=== PATIENT | male | born 1950 | race Caucasian/White ===

== ENCOUNTER → 2019-10-14 09:28 | Outpatient (CLI) | payer MEDICARE, BC, SELFPAY ==
[2019-10-14 11:04] LABS: Coronavirus 19 IgG Antibody Negative (Negative); Coronavirus 19 IgM Antibody Negative (Negative)
== END ==
PROVIDERS: Visit Provider Internal Medicine Gastroenterology
DX: Z01.818 Encounter for other preprocedural examination (principal); Z12.11 Encounter for screening for malignant neoplasm of colon
CPT/HCPCS: 36415; 86328

== ENCOUNTER 2019-10-17 11:05 | Day surgery (SDC) | payer MEDICARE, BC, SELFPAY ==
--- NOTE | 2019-10-13 10:44 | SUR.PREOP ---
10/13/2019 @ 9172--PHONE CALL MADE TO PATIENT. PATIENT UNDERSTANDS THAT LAB WORK AND COVID TESTING NEEDS TO BE COMPLETED @ 0845 ON 10/14/2019. PATIENT UNDERSTANDS IF LAB WORK AND COVID-19 TESTS ARE NOT COMPLETED BY 12PM ON THAT DATE, THE SURGERY SCHEDULED WILL BE CANCELLED AND RESCHEDULED FOR ANOTHER TIME.
[2019-10-14 14:43] VITALS: BMI 23.7
[2019-10-17] VITALS (7 sets, daily range): BP systolic 79–161; BP diastolic 48–82; PULSE 60–73; RESP 16–18; TEMP 36.3–36.9; O2SAT 96–100
--- NOTE | 2019-10-17 12:11 | HMH.ANESCL ---
[facility] [place] Anesthesia Checklist - Patient Identification Patient Identification: Arm Band, Verbal (Name & ) - Structural Data Admitted From: Home Planned Operative Procedure/s: Colonoscopy Consent for Planned Operative Procedure(s) Verified: Yes Verified Documents: Surgical Consent, History and Physical - NPO Status Verified Time NPO: 00:00 - Chart Verification Results Verified: None - Additional verifications Anesthesia Reactions: No - Airway Assessment C-Spine Mobility Assessed: Yes TMJ Mobility Assessed: Yes Dentition: Good Dentition - Neurological Assessment Level of Consciousness: Awake, Alert, Appropriate, Follows Commands Hx Seizures: No Numbness or tingling in extremities: No - Anesthesia Plan Anesthesia Risk discussed: Yes Anesthesia Plan: Verified ASA Class: III Anesthesia Type: MAC [facility] [place] History I have reviewed the patient's past medical history: Yes Medical History: Reports:: Atrial Fibrillation, Congestive Heart Failure, Hypertension, Internal Pacemaker, Valvular Heart Disease Denies:: Cancer, Diabetes Mellitus Type 1, Diabetes Mellitus Type 2, MRSA, Seizures *Have you ever received a pneumonia vaccine?: Yes *Have you received a flu vaccine this season?: Yes Anesthesia experience/problems:: None Laterality Cases: Bilateral: Tonsillectomy Other Surgeries: Yes: Cardiac Catheterization, Pacemaker, Other (CORDELIA) Amputation: No Fractures: No - *Social History Educational Level: Attended College Smoking Status: Never smoker Alcohol Intake: former Alcohol Intake Frequency:: other Substance Use Type: denies use *Occupational Status:: retired Housing: house Household Members: spouse *Travel in the last 8 weeks: None Family Hx:: No significant family history
--- NOTE | 2019-10-17 12:35 | HMH.PROC ---
[facility] Procedure Note Procedure Note:: Colonoscopy Procedure Report: Colonoscopy with cold snare polypectomy Endoscopist: Bang Raman II, MD Referring physician: LANCE Perez Date of Procedure: October 17, 2019 Equipment: Olympus 180 variable stiffness pediatric colonoscope Sedation: MAC sedation Indication: Mr. Ferguson is a 68-year-old gentleman who is here for diagnostic colonoscopy secondary to a positive Cologuard test. The patient does state that his mother had colon cancer in her early 80s. The patient reports no rectal bleeding, hematochezia or melena. He reports no abdominal pain, weight loss or change in his bowel habits. This is his first colonoscopy. Procedure: Prior to the procedure, a history and physical exam was performed, and patient's medications and allergies were reviewed. The risks, benefits and alternatives of the sedation and procedure were discussed with the patient. All questions were answered and informed consent was obtained. The patient was brought to the procedure room. Patient identification and proposed procedure were verified by the physician and the nurse. The patient was placed in a left lateral decubitus position and the scope was passed under direct vision. Throughout the procedure, the patient's blood pressure, pulse, and oxygen saturations were monitored continuously. The colonoscopy was accomplished without difficulty. The patient tolerated the procedure well. Findings: On digital rectal examination there was normal rectal tone. There were no external hemorrhoids. The colonoscope was introduced through the anal canal to the rectum and advanced to the cecum. The ileocecal valve and appendiceal orifice were identified. The scope was advanced a short distance into the ileum which appeared grossly normal. The scope was then withdrawn into the colon. There was melanosis coli noted throughout the colon but more predominant in the right colon. There were a total of 8 polyps (cecum x3 (4, 4 and 8 mm), ascending x3 (5, 8 and 20 mm), transverse x1 (5 mm) and sigmoid x1 (9 mm)). All of these polyps were removed via cold snare polypectomy. There were extensive scattered wide-mouth diverticuli throughout the descending and sigmoid colon (LEFT colon). The rectum itself was normal. Upon retroflexion within the rectum there were grade 1-2 internal hemorrhoids. The preparation was fair throughout with [place] Preparation Score of 7 out of 9. The cecal time was 19 minutes. Impression: 1. Colonic polyps x8 (ranging in size from 4 to 20 mm) 2. Mild melanosis coli 3. Extensive left-sided diverticulosis 4. Grade 1-2 internal hemorrhoids Plan: I will follow up the polyp pathology and recommend repeat colonoscopy again in 2 years based upon the polyp histology. I would encourage fiber supplementation on a long-term daily maintenance basis.
== END 2019-10-17 13:21 | disposition home or self-care (01) ==
LOC: OUTP 11:07
PROVIDERS: PCP Nurse Practitioner Family; Visit Provider Internal Medicine Gastroenterology
PROC: 0DJD8ZZ Inspection of Lower Intestinal Tract, Via Natural or Artificial Opening Endoscopic (ICD-10-PCS; CPT 45378; principal; 2019-10-17 12:00)
DX: K63.5 Polyp of colon (principal); K57.30 Diverticulosis of large intestine without perforation or abscess without bleeding; K64.0 First degree hemorrhoids; L81.4 Other melanin hyperpigmentation; Z80.0 Family history of malignant neoplasm of digestive organs; I10 Essential (primary) hypertension; I48.91 Unspecified atrial fibrillation; Z95.0 Presence of cardiac pacemaker; Z86.79 Personal history of other diseases of the circulatory system; Z79.82 Long term (current) use of aspirin; Z79.899 Other long term (current) drug therapy
CPT/HCPCS: 45385; 88304; 88305

== ENCOUNTER → 2019-11-25 13:13 | Outpatient (CLI) | payer MEDICARE, BC, SELFPAY ==
--- NOTE | 2019-11-25 13:17 | CA_ITS ---
APPROVED REPORT EXAM: Comprehensive 2D, Doppler, and color-flow Echocardiogram Family Partner: Ailyn Hua CRT Ht: 6 ft 1 in Wt: 186lbs BSA: 2.09 BP: 124/78 mmHg Indications: chf,mv replaced,paf,aicd,htn TDS-BEST WINDOWS POSSIBLE 2D Dimensions LVOT 2.10 cm (M/F) 1.5-2.5 M-Mode Dimensions RVDd 2.57 cm (0.9-2.6) LVDd 3.99 cm (3.5-5.7) LVDs 2.63 cm (3.5-5.7) IVSd 0.82 cm (0.6-1.1) PWd 0.79 cm (0.6-1.1) EF (Teich) 63.60% FS 34.10% EDV (Teich) 69.60 mL ESV (Teich) 25.30 mL LV Diastology E/A Ratio 1.37 Aortic Valve AO VTI 63.11 (18-25 cm) Mitral Valve MV A Velocity 102.00 (40-130 cm/s) MV PHT 87.00 ms Left Ventricle Left atrium is mildly enlarged, left ventricle is normal size, mild concentric left ventricular hypertrophy, visually estimated ejection fraction 55% with no regional wall motion abnormality. Diastolic parameters are inconclusive. Right Ventricle Right atrium and right ventricle are normal size and contractility, there is an AICD lead seen in the right ventricle. Aortic Valve Aortic valve is minimally thickened and fibrosed, there is no aortic stenosis or aortic insufficiency. Mitral Valve There is a bioprosthetic valve noted in the mitral position, the valve is well-seated, the mean gradient across valve is 4 mmHg, valve area is 2.5 cm??? by pressure half-time which does not represent any significant mitral inflow obstruction. There is no mitral regurgitation. Tricuspid Valve Tricuspid valve is not well visualized, there is no significant tricuspid regurgitation seen. Pulmonic Valve Pulmonic valve is poorly visualized. Great Vessels Aortic root is normal size. Pericardium No significant pericardial effusion noted. Conclusion 1. Mildly enlarged left atrium, normal left ventricular size, mild concentric left ventricular hypertrophy, visually estimated ejection fraction 55% with no regional wall motion abnormality, diastolic parameters are inconclusive. 2. Normal functioning bioprosthetic valve in the mitral position without significant mitral inflow obstruction or mitral regurgitation. 3. No significant pericardial effusion noted. Electronically signed by : Toni Wright, 11/28/2019 07:10:02
== END ==
PROVIDERS: PCP Nurse Practitioner Family; Visit Provider Nurse Practitioner Family
DX: I50.32 Chronic diastolic (congestive) heart failure (principal)
CPT/HCPCS: 93306

== ENCOUNTER → 2021-12-23 10:18 | Outpatient (CLI) | payer MEDICARE, SELFPAY ==
[2021-12-23 11:24] LABS: Basophils # 0.1 K/mm3 (0-0.2); Basophils % 1.3 % (0.1-2.0); Eosinophils # 0.5 K/mm3 (0.0-0.4); Hematocrit 40.9 % (42.0-52.0); Hemoglobin 12.9 g/dL (14.1-18.0); Lymphocytes # 1.7 K/mm3 (0.7-4.5); Lymphocytes % 22.6 % (10-50); Mean Corpuscular HGB Conc 31.6 g/dL (31.8-35.4); Mean Corpuscular Hemoglobin 28.9 pg (27.0-31.2); Mean Corpuscular Volume 91.7 fl (80-94); Mean Platelet Volume 8.9 fl (7.4-10.4); Monocytes # 0.4 K/mm3 (0.1-1.0); Monocytes % 5.3 % (1.7-9.3); Neutrophils # 4.8 K/mm3 (1.8-7.8); Neutrophils % 63.8 % (37.0-80.0); Platelet Count 141 K/mm3 (142-424); Red Blood Count 4.45 M/mm3 (4.60-6.20); Red Cell Distribution Width 15.5 % (11.5-17.5); White Blood Count 7.5 K/mm3 (4.8-10.8)
[2021-12-23 11:46] LABS: Alanine Aminotransferase 17 U/L (12-78); Albumin Level 3.9 g/dl (3.5-5.0); Alkaline Phosphatase 82 U/L (38-126); Anion Gap 9.5 mEq/L (5-15); Aspartate Amino Transferase 16 U/L (17-59); Bilirubin,Indirect 0.2 mg/dL (0.0-0.9); Bilirubin,Total 0.2 mg/dl (0.2-1.3); Bilirubin,Unconjugated 0.2 mg/dL (0.0-1.1); Blood Urea Nitrogen 33 mg/dl (9-20); Calcium 9.3 mg/dl (8.4-10.2); Carbon Dioxide 32 mmol/L (22.0-30.0); Chloride 105 mmol/L (98-107); Estimated Glomerular Filt Rate 60 ml/min (>60); GFR (African American) 73 ML/MIN (>60); Glucose 108 mg/dl (74-100); Magnesium 1.9 mg/dl (1.6-2.3); Potassium 4.5 mmoL/L (3.5-5.1); Sodium 142 mmol/L (136-145); Total Protein,Serum 6.1 g/dl (6.3-8.2)
[2021-12-23 12:02] LABS: Free T4 (Free Thyroxine) 0.87 ng/dl (0.78-2.19)
[2021-12-23 12:16] LABS: Thyroid Stimulating Hormone 3.16 uIU/mL (0.465-4.68)
== END ==
PROVIDERS: PCP Nurse Practitioner Family; Visit Provider Nurse Practitioner Family
DX: I50.9 Heart failure, unspecified; Z95.810 Presence of automatic (implantable) cardiac defibrillator; I48.0 Paroxysmal atrial fibrillation
CPT/HCPCS: 36415; 80048; 80076; 83735; 84439; 84443; 85025

== ENCOUNTER → 2023-02-18 10:40 | Outpatient (CLI) | payer MEDICARE, SELFPAY ==
--- NOTE | 2023-02-18 10:46 | CA_ITS ---
APPROVED REPORT EXAM: Comprehensive 2D, Doppler, and color-flow Echocardiogram Film Replacement Orderer: Luzmaria Villavicencio RT(R) Ht: 6 ft 0 in Wt: 201lbs BSA: 2.14 BP: 129/55 mmHg Indications: mitral valve replacement (bioprosthetic) 6 years ago, CHF, dyspnea, PAF. 2D Dimensions LVOT 2.54 cm (M/F) 1.5-2.5 M-Mode Dimensions RVDd 3.68 cm (0.9-2.6) LA Diam 3.95 cm (1.9-4.0) LVDd 4.81 cm (3.5-5.7) Ao Diam 3.45 cm (2.0-3.7) LVDs 3.68 cm (3.5-5.7) IVSd 1.23 cm (0.6-1.1) PWd 1.03 cm (0.6-1.1) EF (Teich) 46.90% FS 23.50% EDV (Teich) 108.00 mL ESV (Teich) 57.40 mL LV Diastology E Decel Time 207.00 (160-240 msec) E/A Ratio 2.0 MED E' 10.50 (< 7 cm/sec) E'/MED E' Ratio 13.85 (>14) LAT E' 10.40 (<10 cm/sec) E/LAT E' Ratio 13.98 (>14) Aortic Valve LVOT Max 101.00 (70-110 cm/s) LVOT VTI 22.10 cm AoV Peak Jefry. 135.00 (50-130 cm/s) AO Peak GR. 7.30 mmHg AO Mean GR. 3.60 (<5 mmHg) AO VTI 29.96 (18-25 cm) MARTHA (VTI) 3.74 (2.5-4.5 cm2) Mitral Valve MV E Max Jefry. 145.00 (40-130 cm/s) MV A Velocity 72.00 (40-130 cm/s) E/A Ratio 2.02 MV Decel. Time 207.00 (160-240 ms) MV PHT 61.00 ms Left Ventricle The left ventricle is normal size. The left ventricular systolic function is normal. The left ventricular ejection fraction is within the normal range. There is normal left ventricular wall thickness. The septum appears asynchronous. No regional wall motion abnormalities. The left ventricular diastolic function is normal. LVEF is 55% Right Ventricle The right ventricle is normal size. The right ventricular systolic function is normal. A device lead is noted in the right ventricle. Atria The left atrium size is normal. Aortic Valve The aortic valve is mildly thickened. There is no aortic valvular stenosis. Trace aortic regurgitation. Mitral Valve s/p bioprosthetic mitral valve replacement. The prosthesis is well-seated. No evidence of significant mitral stenosis. Mean MV gradient is 4 mmHg. Trace mitral regurgitation. Tricuspid Valve The tricuspid valve leaflets are thin and pliable. Trace tricuspid regurgitation. There is insufficient TR jet to estimate RVSP. Pulmonic Valve The pulmonic valve is not well visualized. Great Vessels The aortic root is normal in size. The ascending aorta is not well visualized. The IVC is not well visualized. Pericardium There is no pericardial effusion. Other Information Study Quality: Technically Difficult Conclusion This was a technically difficult study due to poor acoustic windows. Normal biventricular systolic function. s/p bioprosthetic MVR. Mean MV gradient 4 mmHg. Compared to prior study from 11/25/2019, there are overall no significant changes. The mean transmitral gradient is unchanged. Electronically signed by : Ciara Benavidez MD 02/18/2023 21:42:04
== END ==
PROVIDERS: PCP Nurse Practitioner Family; Visit Provider Nurse Practitioner Family
DX: I10 Essential (primary) hypertension (principal); I48.0 Paroxysmal atrial fibrillation; I50.9 Heart failure, unspecified; Z95.4 Presence of other heart-valve replacement; Z95.810 Presence of automatic (implantable) cardiac defibrillator
CPT/HCPCS: 93306

== ENCOUNTER 2023-07-16 14:19 | Inpatient (IN) | payer MEDICARE, SELFPAY ==
[2023-07-16] VITALS (26 sets, daily range): BP systolic 90–130; BP diastolic 50–89; PULSE 60–78; RESP 20–52; TEMP 36.9–37.7; O2SAT 89–100; BMI 26.4; BMI 26.5; BMI 28.5
--- NOTE | 2023-07-16 14:28 | XR_ITS ---
FINAL REPORT CLINICAL HISTORY: acute soa COMPARISON: 05/29/2023 FINDINGS: A single PA view of the chest was obtained. There is no prior exam for comparison. The heart is enlarged. The patient is status post median sternotomy. There is no change in the left AICD. Interstitial opacities bilaterally are worse. There are also worsening bibasilar airspace opacities and small bilateral effusions. IMPRESSION: Favor CHF. Reviewed, Interpreted and Dictated by Ginny Vega MD Transcribed by Edith Vargas Authenticated and [facility]
--- NOTE | 2023-07-16 14:37 | PC.NURSE ---
RESPIRATORY NOTIFIED OF BI-PAP ORDER PER DR MARVIN
--- NOTE | 2023-07-16 14:42 | ECG_ITS ---
APPROVED REPORT Exam: Resting ECG HR:66 bpm ECG Measurements Heart Rate 66 AXES DE 328 P -23 QRSd 83 QRS 37 QT 405 T -30 QTc 419 Conclusion ELECTRONIC ATRIAL PACEMAKER LOW QRS VOLTAGE IN PRECORDIAL LEADS [QRS DEFLECTION < 1.0 mV IN CHEST LEADS] ANTERIOR MYOCARDIAL INFARCTION , PROBABLY RECENT [40+ ms Q WAVE AND/OR ST/T ABNORMALITY IN V3/V4] ACUTE LA UNCONFIRMED REPORT Electronically signed by : Jorge Marsh MD 07/17/2023 19:32:40
--- NOTE | 2023-07-16 14:45 | ED_ITS ---
Discharge Plan Disposition Patient Disposition: Admitted Condition: Good Clinical Impressions Clinical Impression: Acute respiratory failure, Lung disease, restrictive, Pectus excavatum, Aspiration pneumonia, CHF exacerbation Discharge ED Provider: Steven Swain HPI <Steven Swain MD - Last Filed: 07/16/23 15:28> General Chief Complaint: Shortness of Breath/Dyspnea Stated Complaint: soa Time Seen by Provider: 07/16/23 14:22 History of Present Illness HPI narrative: Patient is a 72-year-old male with past medical history of aortic stenosis status post TAVR, V-fib status post pacemaker placement, paroxysmal atrial fibri llation, CHF, hypertension who presents emergency department for evaluation of shortness of breath. Onset was acute, worsening over the last week, acutely worsened since this morning. Patient had significant difficulty breathing. Family at bedside state that he is not a smoker, does not have a history of COPD. He has been speaking intermittently nonsensically, after waking up today they found that he was hypoxic to the 70s which improved after he was roused. He is more somnolent than normal. Patient denies chest pain however is only able to speak in 1-3 word sentences. Related Data Home Medications Medication Instructions Recorded Confirmed apixaban 5 mg tablet (Eliquis) 5 mg PO BID Blood thinner 06/15/17 01/29/23 aspirin 81 mg tablet,delayed 81 mg PO QDAY heart 06/15/17 01/29/23 release (Adult Low Dose Aspirin) furosemide 40 mg tablet (Lasix) 40 mg PO QDAY Fluid 06/15/17 01/29/23 lisinopril 10 mg tablet 10 mg PO QDAY bp 06/15/17 01/29/23 loratadine 10 mg tablet (Claritin) 10 mg PO QDAY allergies 06/15/17 01/29/23 melatonin 5 mg tablet 10 mg PO HS sleep 06/16/17 01/29/23 acetaminophen 500 mg tablet 500 mg PO Q6H PRN pain 09/09/18 01/29/23 (Tylenol Extra Strength) calcium carbonate 600 mg-vitamin 1 cap PO DAILY Supplement 09/09/18 01/29/23 D3 5 mcg (200 unit) capsule (Calcium 600 + D(3)) methylcellulose (laxative) 500 mg 500 mg PO DAILY 01/05/20 01/29/23 tablet (Citrucel) polyethylene glycol 3350 17 17 g PO DAILY 01/05/20 01/29/23 gram/dose oral powder (Miralax) allopurinol 100 mg tablet 100 mg PO DAILY 01/10/21 01/29/23 ipratropium bromide 0.02 % 2.5 ml inhalation QID PRN 01/10/21 01/29/23 solution for inhalation ipratropium bromide 21 mcg (0.03 2 spray intranasal BID 08/01/22 01/29/23 %) nasal spray potassium chloride 20 mEq 20 meq PO DAILY 08/01/22 01/29/23 tablet,extended release(part/cryst) Previous Rx's Medication Instructions Recorded metoprolol succinate 100 mg 100 mg PO DAILY #90 tabs 12/20/21 tablet,extended release 24 hr (Toprol XL) Allergies Allergy/AdvReac Type Severity Reaction Status Date / Time No Known Allergies Allergy Verified 01/29/23 09:58 COUNT INCLUDES THE [facility] <Steven Swain MD - Last Filed: 07/16/23 15:28> COUNT INCLUDES THE [facility] Disclaimer: The information contained in this section may have been updated after the patient was seen, as this information can be updated by other users. Medical History Atrial fibrillation Congestive heart failure HTN (hypertension) Presence of combination internal cardiac defibrillator (ICD) and pacemaker Valvular heart disease Surgical History Hx of tonsillectomy Social History Smoking Status: Never smoker second hand exposure: No alcohol intake: former substance use type: denies use current occupational status: retired Travel in the last 8 weeks: Inside the [place] household members: spouse housing: house current occupational exposures/hazards: No caffeine: No <Steven Swain MD - Last Filed: 07/16/23 15:28> ROS Obtained: Yes Systems reviewed as appropriate & no additional complaints except as documented Physical Exam <Steven Swain MD - Last Filed: 07/16/23 15:28> General General appearance: alert and in distress Head Head exam: atraumatic and normocephalic Eye Eye exam: Present PERRL and EOMI ENT ENT exam: Present mucous membranes moist Neck Neck exam: Present normal inspection Chest Chest inspection: Present symmetric chest wall rise and other (Pectus excavatum, well-healed surgical scar midline) Respiratory Respiratory exam: Present respiratory distress, accessory muscle use (Sign ificant accessory muscle use with belly breathing) and other (Significantly decreased air movement) Cardiovascular Cardiovascular exam: Present regular rate and normal rhythm Abdominal Exam Abdominal exam: Present soft; Absent tenderness Extremities Exam Extremities exam: Present normal inspection Neurological Exam Neurological exam: Present alert and oriented X3 Psychiatric Psychiatric exam: Present normal affect Skin Skin exam: Present warm and dry HEART Score <Steven Swain MD - Last Filed: 07/16/23 15:28> HEART Score HEART Score assessment performed?: Yes History (anamnesis): Slightly suspicious ECG: Non-specific disturbance Age: >65 years Risk factors: Atherosclerosis history Troponin: 1-3x normal limit HEART Score: 6 <MISSY Grier - Last Filed: 07/16/23 17:06> HEART Score HEART Score: 6 <Isaura Kee DO - Last Filed: 07/16/23 23:42> HEART Score HEART Score: 6 <MISSY Grier - Last Filed: 07/16/23 17:06> Intubation Time out performed: No sedative: Etomidate Mg Given: 20 paralytic: Succinylcholine Mg Given: 100 Laryngoscope: fiber optic video scope ET Tube Size: 7.5 ET Tube Uncuffed: No Tube Secured Depth (cm): 24 Tube Secured Location: teeth Tube Placement Confirmation: visualized tube passing through cords, equal breath sounds bilaterally and confirmation by capnometry Patient Tolerated Procedure: well and no complications Intubation Complications: none Additional Comments: I performed the intubation of the direct supervision and assistance of of Dr. Kee Critical Care <Steven Swain MD - Last Filed: 07/16/23 15:28> Critical Care Time Critical Care Time: Yes Attestation: On 07/16/23, the high probability of a clinically significant, sudden or life threatening deterioration of the following system(s) required my full and direct attention, intervention and personal management. The time I documented below is in addition to time spent performing reported procedures but includes the following listed in this critical care notation. Total Time Total Critical Care Time: 35 <Isaura Kee DO - Last Filed: 07/16/23 23:42> Total Time Total Critical Care Time: 75 Medical Decision Making <Steven Swain MD - Last Filed: 07/16/23 15:28> Shashank Brizuela Pt receiving controlled substance: No Vital Signs Vital Signs: 07/16/23 14:20 07/16/23 14:59 07/16/23 15:21 Temperature 98.6 F Temperature Source Temporal Artery Scan Pulse Rate 65 61 Pulse Rate [Left Radial] 63 Respiratory Rate 45 H 28 H 22 Blood Pressure 130/67 119/79 Blood Pressure [Right Arm] 130/77 Blood Pressure Mean 85 88 Blood Pressure Mean [Right Arm] 94 Blood Pressure Source Blood Pressure Source [Right Arm] Automatic Cuff Blood Pressure Position Blood Pressure Position [Right Arm] Sitting 02 Sat by Pulse Oximetry 89 L 97 100 Oxygen Delivery Method Room Air BiPAP Mechanical Ventilation 07/16/23 15:10 07/16/23 15:30 07/16/23 20:20 Temperature 99.9 F H Temperature Source Core Pulse Rate 61 62 Pulse Rate [Left Radial] Respiratory Rate 20 24 Blood Pressure 100/67 L 105/64 L Blood Pressure [Right Arm] Blood Pressure Mean 73 Blood Pressure Mean [Right Arm] Blood Pressure Source Automatic Cuff Blood Pressure Source [Right Arm] Blood Pressure Position Supine Blood Pressure Position [Right Arm] 02 Sat by Pulse Oximetry 100 100 Oxygen Delivery Method Mechanical Ventilation Mechanical Ventilation 07/16/23 17:53 Temperature Temperature Source Pulse Rate Pulse Rate [Left Radial] Respiratory Rate 24 Blood Pressure Blood Pressure [Right Arm] Blood Pressure Mean Blood Pressure Mean [Right Arm] Blood Pressure Source Blood Pressure Source [Right Arm] Blood Pressure Position Blood Pressure Position [Right Arm] 02 Sat by Pulse Oximetry 100 Oxygen Delivery Method Lab Data Labs: Lab Results 07/16/23 14:35: WBC 9.7, RBC 4.89, Hgb 15.0, Hct 48.1, MCV 98.3 H, MCH 30.6, MCHC 31.1 L, RDW 15.5, Plt Count 131 L, MPV 9.2, Neut % (Auto) 74.4, Lymph % (Auto) 18.9, [place] % (Auto) 4.9, Eos % (Auto) 1.1, Baso % (Auto) 0.8, Neut # (Auto) 7.2, Lymph # (Auto) 1.8, [place] # (Auto) 0.5, Eos # (Auto) 0.1, Baso # (Auto) 0.1, Sodium 143, Potassium 5.7 H, Chloride 105, Carbon Dioxide 36 H, Anion Gap 7.7, BUN 24 H, Creatinine 1.20, Estimated Creat Clear 68, Estimated GFR 60, Est GFR ( Amer) 72, Glucose 114 H, Lactate 0.9, Calcium 8.5, Total Bilirubin 0.8, AST 30, ALT 19, Alkaline Phosphatase 73, Troponin I 0.04 H, NT-Pro-B Natriuret Pep 2010 H, Total Protein 7.1, Albumin 4.3, Globulin 2.8, Albumin/Globulin Ratio 1.5 07/16/23 14:42: VBG pH 7.24 L, VBG pCO2 73.6 H, VBG pO2 48.0 H, VBG HCO3 30.8 H, VBG Total CO2 33.1 H, VBG O2 Saturation 81.4 H, VBG Base Excess 3.4 H 07/16/23 14:58: VBG Lactic Acid 1.5 07/16/23 16:09: Specimen Source Left radial, O2 % 40, ABG pH 7.35, ABG pCO2 48.0 H, ABG pO2 71.5 L, ABG HCO3 26.1 H, ABG Total CO2 27.6 H, ABG O2 Saturation 94, ABG Base Excess 0.5, [place] Test Patient unable, Vent Rate 24, Tidal Volume 420, PEEP 5 07/16/23 18:04: Troponin I 0.06 H 07/16/23 18:45: SARS-CoV-2 (PCR) Not detected, Influenza A Untype (PCR) Not d etected, Influenza Type B (PCR) Not detected 07/16/23 14:35 07/16/23 14:35 Response Orders (Tests/Meds): ED MEDICATIONS Generic Name Dose Route Start Last Admin Trade Name Freq PRN Reason Stop Dose Admin Albuterol/Ipratropium 3 ml 07/16/23 22:00 07/16/23 21:55 Ipratropium/Albuterol 3 Ml Neb IH 08/15/23 21:59 3 ml Q4RT ANASTACIA Administration Fentanyl Citrate 12.5 mcg 07/16/23 23:06 Fentanyl 100mcg/2ml Vial IV 08/15/23 23:05 [id number] PRN Severe Pain (7-10) Fentanyl Citrate 1,000 mcg/ 100 mls @ 1 mls/hr 07/16/23 15:43 07/16/23 16:32 Sodium Chloride IV 08/15/23 15:42 80 mcg/hr .Q24H ANASTACIA 8 mls/hr Titration Protocol 10 MCG/HR Propofol 100 mls @ 2.517 mls/hr 07/16/23 15:10 07/16/23 16:54 Diprivan 10mg/Ml 100ml Bottle IV 08/15/23 15:09 12 mcg/kg/min .Q24H ANASTACIA 6.04 mls/hr Titration Protocol 5 MCG/KG/MIN Norepinephrine/Dextrose 8 mg in 250 mls @ 3.75 mls/hr 07/16/23 16:57 07/16/23 19:40 Norepinephrine 8mg/250ml-D5w Premix IV 08/15/23 16:56 2 mcg/min .Q24H ANASTACIA 3.75 mls/hr Administration Protocol 2 MCG/MIN Vancomycin/PEG/NADA/Lysine/Water 1.75 gm in 350 mls @ 175 mls/hr 07/16/23 22:30 07/16/23 22:35 Vancomycin 1.75gm/350ml (Peg) Premix IV 07/17/23 00:29 175 mls/hr ONCE ONE Administration Vancomycin/PEG/NADA/Lysine/Water 1.25 gm in 250 mls @ 125 mls/hr 07/17/23 16:00 Vancomycin 1.25gm/250ml (Peg) Premix IV 07/27/23 15:59 Q18H [facility] Miscellaneous 1 each 07/16/23 18:45 07/16/23 22:36 Vancomycin Consult Request NOTAPPLIC 08/15/23 18:44 1 each CONSULT PHARMACY ANASTACIA Administration Morphine Sulfate 2 mg 07/16/23 19:38 Morphine 2mg/Ml Syringe IV 08/15/23 19:37 Q2HP PRN Severe Pain (7-10) Sodium Chloride 3 ml 07/16/23 15:19 Sodium Chloride 3% 15ml Neb IH 08/15/23 15:18 ONCE PRN INDUCE SPUTUM COLLECTION Sodium Chloride 10 ml 07/16/23 18:36 07/16/23 18:39 Sodium Chloride 0.9% 10ml Syr (Rad Only) IV 08/15/23 18:35 10 ml NEEDED PRN Administration Maintain IV Site Discontinued Medications Generic Name Dose Route Start Last Admin Trade Name Faustoq PRN Reason Stop Dose Admin Albuterol/Ipratropium 9 ml 07/16/23 14:42 07/16/23 19:48 Ipratropium/Albuterol 3 Ml Neb IH 07/16/23 14:43 Not Given ONCE ONE Dexamethasone Sodium Phosphate 6 mg 07/16/23 14:44 07/16/23 18:43 Dexamethasone 4mg/Ml 1ml Vial IV 07/16/23 14:45 6 mg ONCE ONE Administration Etomidate 20 mg 07/16/23 15:04 07/16/23 15:04 Etomidate 40mg/20ml Vial IV 07/16/23 15:05 20 mg ONCE ONE Administration Furosemide 40 mg 07/16/23 18:40 07/16/23 21:38 Furosemide 40mg/4ml Vial IV 07/16/23 18:41 40 mg ONCE ONE Administration Cefepime HCl 2 gm/ Sodium 100 mls @ 200 mls/hr 07/16/23 18:40 07/16/23 21:37 Chloride IV 07/16/23 19:09 200 mls/hr ONCE ONE Administration Cefepime HCl 2 gm/ Sodium 100 mls @ 200 mls/hr 07/16/23 22:00 07/16/23 21:59 Chloride IV 07/16/23 22:29 Not Given ONCE ONE Iopamidol 75 ml 07/16/23 18:36 07/16/23 18:38 Iopamidol-370 (76%);100ml Bottle IV 07/16/23 18:37 75 ml ONCE ONE Administration Lorazepam 1 mg 07/16/23 15:10 07/16/23 15:10 Lorazepam 2mg/Ml Vial IV 07/16/23 15:11 1 mg ONCE ONE Administration Lorazepam 1 mg 07/16/23 16:20 07/16/23 16:20 Lorazepam 2mg/Ml Vial IV 07/16/23 16:21 1 mg ONCE ONE Administration Sodium Chloride 50 ml 07/16/23 18:36 07/16/23 18:38 0.9 % Sodium Chloride 50 Ml Vial IV 07/16/23 18:37 50 ml ONCE ONE Administration Succinylcholine Chloride 100 mg 07/16/23 15:05 07/16/23 15:05 Succinylcholine 20mg/Ml 10 Ml Mdv IV 07/16/23 15:06 100 mg ONCE ONE Administration ORDERS Category Date Time Status CT angio chest PE protocol Stat Cat Scan 07/16/23 15:[address] head/brain wo con Stat Cat Scan 07/16/23 15:41 Completed Cardiology Consult [Consult to Cardiology] [CONS] Cons 07/16/23 19:38 Active Routine Pulmonology Consult [Consult to Pulmonology] [CONS] Cons 07/16/23 19:38 Active Stat CXR --portable [XR chest portable] Stat Exams 07/16/23 14:28 Completed Chest XR -- portable [XR chest portable] Stat Exams 07/16/23 15:14 Completed POCUS Point of Care (ER Only) Stat Exams 07/16/23 14:25 Completed BNP [Brain Natriuretic Peptide] Stat Lab 07/16/23 14:35 Completed CBC w/Auto Diff [Complete Blood Count Auto Diff] Stat Lab 07/16/23 14:35 Completed CMP [Comprehensive Metabolic Panel] Stat Lab 07/16/23 14:35 Completed Complete Blood Count Auto Diff AMLAB Lab 07/17/23 06:00 Ordered Comprehensive Metabolic Panel AMLAB Lab 07/17/23 06:00 Ordered Lactate Venous Routine Lab 07/16/23 14:58 Completed Lactic Acid Stat Lab 07/16/23 14:35 Completed Magnesium AMLAB Lab 07/17/23 06:00 Ordered Rapid PCR Covid and Flu A/B Stat Lab 07/16/23 18:45 Completed Trop I [Troponin I] Stat Lab 07/16/23 14:35 Completed Troponin I Q3H Lab 07/16/23 18:04 Completed Troponin I Q3H Lab 07/16/23 21:20 Completed Blood Culture Stat Micro 07/16/23 19:53 Received Sputum Culture & Gram Stain Stat Micro 07/16/23 15:19 Received ABG [Arterial Blood Gas] Stat RT 07/16/23 16:09 Completed VBG [Venous Blood Gas] Stat RT 07/16/23 14:42 Completed ECG initial [place] Routine Y 07/16/23 14:42 Completed ECG Data Tracing #1: ECG Narrative: Independently interpreted by me, rate is 66, rhythm is atrial paced, significant chatter, no definitive ST elevation in anatomical contiguous leads, QTc 419. MDM Narrative Medical Decision Narrative: In summary patient is a 72-year-old male with past medical history described above who presents emergency department for evaluation of significant respiratory distress. Patient is an extremis upon arrival, speaking in 2 word sentences. BiPAP was placed in an attempt to stave off intubation. Discussion with patient and family at bedside about goals of care, patient is okay being put on a ventilator, patient is not okay with chest compressions or cardiac resuscitative ACLS drugs. Patient has significant pectus excavated him, silent chest, he is not a smoker and does not carry diagnosis of COPD. Differential diagnosis includes restrictive lung disease with resultant hypercapnic respiratory failure and CO2 narcosis, pneumonia, silent ACS, among others. Workup will be conducted with hematologic labs, chest x-ray, EKG, troponin. Upon repeat evaluation patient did not have any improvement, was losing his respiratory drive breathing 45-60 times a minute on BiPAP. Patient will require intubation given that he cannot protect his airway, transition of care was conducted at time of intubation under the direction of Dr. Kee performed by Aakash Davdi. <MISSY Grier - Last Filed: 07/16/23 17:06> Vital Signs Vital Signs: 07/16/23 14:20 07/16/23 14:59 07/16/23 15:21 Temperature 98.6 F Temperature Source Temporal Artery Scan Pulse Rate 65 61 Pulse Rate [Left Radial] 63 Respiratory Rate 45 H 28 H 22 Blood Pressure 130/67 119/79 Blood Pressure [Right Arm] 130/77 Blood Pressure Mean 85 88 Blood Pressure Mean [Right Arm] 94 Blood Pressure Source Blood Pressure Source [Right Arm] Automatic Cuff Blood Pressure Position Blood Pressure Position [Right Arm] Sitting 02 Sat by Pulse Oximetry 89 L 97 100 Oxygen Delivery Method Room Air BiPAP Mechanical Ventilation 07/16/23 15:10 07/16/23 15:30 07/16/23 20:20 Temperature 99.9 F H Temperature Source Core Pulse Rate 61 62 Pulse Rate [Left Radial] Respiratory Rate 20 24 Blood Pressure 100/67 L 105/64 L Blood Pressure [Right Arm] Blood Pressure Mean 73 Blood Pressure Mean [Right Arm] Blood Pressure Source Automatic Cuff Blood Pressure Source [Right Arm] Blood Pressure Position Supine Blood Pressure Position [Right Arm] 02 Sat by Pulse Oximetry 100 100 Oxygen Delivery Method Mechanical Ventilation Mechanical Ventilation 07/16/23 17:53 Temperature Temperature Source Pulse Rate Pulse Rate [Left Radial] Respiratory Rate 24 Blood Pressure Blood Pressure [Right Arm] Blood Pressure Mean Blood Pressure Mean [Right Arm] Blood Pressure Source Blood Pressure Source [Right Arm] Blood Pressure Position Blood Pressure Position [Right Arm] 02 Sat by Pulse Oximetry 100 Oxygen Delivery Method Lab Data Labs: Lab Results 07/16/23 14:35: WBC 9.7, RBC 4.89, Hgb 15.0, Hct 48.1, MCV 98.3 H, MCH 30.6, MCHC 31.1 L, RDW 15.5, Plt Count 131 L, MPV 9.2, Neut % (Auto) 74.4, Lymph % (Auto) 18.9, [place] % (Auto) 4.9, Eos % (Auto) 1.1, Baso % (Auto) 0.8, Neut # (Auto) 7.2, Lymph # (Auto) 1.8, [place] # (Auto) 0.5, Eos # (Auto) 0.1, Baso # (Auto) 0.1, Sodium 143, Potassium 5.7 H, Chloride 105, Carbon Dioxide 36 H, Anion Gap 7.7, BUN 24 H, Creatinine 1.20, Estimated Creat Clear 68, Estimated GFR 60, Est GFR ( Amer) 72, Glucose 114 H, Lactate 0.9, Calcium 8.5, Total Bilirubin 0.8, AST 30, ALT 19, Alkaline Phosphatase 73, Troponin I 0.04 H, NT-Pro-B Natriuret Pep 2010 H, Total Protein 7.1, Albumin 4.3, Globulin 2.8, Albumin/Globulin Ratio 1.5 07/16/23 14:42: VBG pH 7.24 L, VBG pCO2 73.6 H, VBG pO2 48.0 H, VBG HCO3 30.8 H, VBG Total CO2 33.1 H, VBG O2 Saturation 81.4 H, VBG Base Excess 3.4 H 07/16/23 14:58: VBG Lactic Acid 1.5 07/16/23 16:09: Specimen Source Left radial, O2 % 40, ABG pH 7.35, ABG pCO2 48.0 H, ABG pO2 71.5 L, ABG HCO3 26.1 H, ABG Total CO2 27.6 H, ABG O2 Saturation 94, ABG Base Excess 0.5, [place] Test Patient unable, Vent Rate 24, Tidal Volume 420, PEEP 5 07/16/23 18:04: Troponin I 0.06 H 07/16/23 18:45: SARS-CoV-2 (PCR) Not detected, Influenza A Untype (PCR) Not detected, Influenza Type B (PCR) Not detected Response Orders (Tests/Meds): ED MEDICATIONS Generic Name Dose Route Start Last Admin Trade Name Freq PRN Reason Stop Dose Admin Albuterol/Ipratropium 3 ml 07/16/23 22:00 07/16/23 21:55 Ipratropium/Albuterol 3 Ml Neb IH 08/15/23 21:59 3 ml Q4RT ANASTACIA Administration Fentanyl Citrate 12.5 mcg 07/16/23 23:06 Fentanyl 100mcg/2ml Vial IV 08/15/23 23:05 [id number] PRN Severe Pain (7-10) Fentanyl Citrate 1,000 mcg/ 100 mls @ 1 mls/hr 07/16/23 15:43 07/16/23 16:32 Sodium Chloride IV 08/15/23 15:42 80 mcg/hr .Q24H ANASTACIA 8 mls/hr Titration Protocol 10 MCG/HR Propofol 100 mls @ 2.517 mls/hr 07/16/23 15:10 07/16/23 16:54 Diprivan 10mg/Ml 100ml Bottle IV 08/15/23 15:09 12 mcg/kg/min .Q24H ANASTACIA 6.04 mls/hr Titration Protocol 5 MCG/KG/MIN Norepinephrine/Dextrose 8 mg in 250 mls @ 3.75 mls/hr 07/16/23 16:57 07/16/23 19:40 Norepinephrine 8mg/250ml-D5w Premix IV 08/15/23 16:56 2 mcg/min .Q24H ANASTACIA 3.75 mls/hr Administration Protocol 2 MCG/MIN Vancomycin/PEG/NADA/Lysine/Water 1.75 gm in 350 mls @ 175 mls/hr 07/16/23 22:30 07/16/23 22:35 Vancomycin 1.75gm/350ml (Peg) Premix IV 07/17/23 00:29 175 mls/hr ONCE ONE Administration Vancomycin/PEG/NADA/Lysine/Water 1.25 gm in 250 mls @ 125 mls/hr 07/17/23 16:00 Vancomycin 1.25gm/250ml (Peg) Premix IV 07/27/23 15:59 Q18H ANASTACIA Miscellaneous 1 each 07/16/23 18:45 07/16/23 22:36 Vancomycin Consult Request NOTAPPLIC 08/15/23 18:44 1 each CONSULT PHARMACY ANASTACIA Administration Morphine Sulfate 2 mg 07/16/23 19:38 Morphine 2mg/Ml Syringe IV 08/15/23 19:37 Q2HP PRN Severe Pain (7-10) Sodium Chloride 3 ml 07/16/23 15:19 Sodium Chloride 3% 15ml Neb IH 08/15/23 15:18 ONCE PRN INDUCE SPUTUM COLLECTION Sodium Chloride 10 ml 07/16/23 18:36 07/16/23 18:39 Sodium Chloride 0.9% 10ml Syr (Rad Only) IV 08/15/23 18:35 10 ml NEEDED PRN Administration Maintain IV Site Discontinued Medications Generic Name Dose Route Start Last Admin Trade Name Freq PRN Reason Stop Dose Admin Albuterol/Ipratropium 9 ml 07/16/23 14:42 07/16/23 19:48 Ipratropium/Albuterol 3 Ml Neb IH 07/16/23 14:43 Not Given ONCE ONE Dexamethasone Sodium Phosphate 6 mg 07/16/23 14:44 07/16/23 18:43 Dexamethasone 4mg/Ml 1ml Vial IV 07/16/23 14:45 6 mg ONCE ONE Administration Etomidate 20 mg 07/16/23 15:04 07/16/23 15:04 Etomidate 40mg/20ml Vial IV 07/16/23 15:05 20 mg ONCE ONE Administration Furosemide 40 mg 07/16/23 18:40 07/16/23 21:38 Furosemide 40mg/4ml Vial IV 07/16/23 18:41 40 mg ONCE ONE Administration Cefepime HCl 2 gm/ Sodium 100 mls @ 200 mls/hr 07/16/23 18:40 07/16/23 21:37 Chloride IV 07/16/23 19:09 200 mls/hr ONCE ONE Administration Cefepime HCl 2 gm/ Sodium 100 mls @ 200 mls/hr 07/16/23 22:00 07/16/23 21:59 Chloride IV 07/16/23 22:29 Not Given ONCE ONE Iopamidol 75 ml 07/16/23 18:36 07/16/23 18:38 Iopamidol-370 (76%);100ml Bottle IV 07/16/23 18:37 75 ml ONCE ONE Administration Lorazepam 1 mg 07/16/23 15:10 07/16/23 15:10 Lorazepam 2mg/Ml Vial IV 07/16/23 15:11 1 mg ONCE ONE Administration Lorazepam 1 mg 07/16/23 16:20 07/16/23 16:20 Lorazepam 2mg/Ml Vial IV 07/16/23 16:21 1 mg ONCE ONE Administration Sodium Chloride 50 ml 07/16/23 18:36 07/16/23 18:38 0.9 % Sodium Chloride 50 Ml Vial IV 07/16/23 18:37 50 ml ONCE ONE Administration Succinylcholine Chloride 100 mg 07/16/23 15:05 07/16/23 15:05 Succinylcholine 20mg/Ml 10 Ml Mdv IV 07/16/23 15:06 100 mg ONCE ONE Administration ORDERS Category Date Time Status CT angio chest PE protocol Stat Cat Scan 07/16/23 15:[address] head/brain wo con Stat Cat Scan 07/16/23 15:41 Completed Cardiology Consult [Consult to Cardiology] [CONS] Cons 07/16/23 19:38 Active Routine Pulmonology Consult [Consult to Pulmonology] [CONS] Cons 07/16/23 19:38 Active Stat CXR --portable [XR chest portable] Stat Exams 07/16/23 14:28 Completed Chest XR -- portable [XR chest portable] Stat Exams 07/16/23 15:14 Completed POCUS Point of Care (ER Only) Stat Exams 07/16/23 14:25 Completed BNP [Brain Natriuretic Peptide] Stat Lab 07/16/23 14:35 Completed CBC w/Auto Diff [Complete Blood Count Auto Diff] Stat Lab 07/16/23 14:35 Completed CMP [Comprehensive Metabolic Panel] Stat Lab 07/16/23 14:35 Completed Complete Blood Count Auto Diff AMLAB Lab 07/17/23 06:00 Ordered Comprehensive Metabolic Panel AMLAB Lab 07/17/23 06:00 Ordered Lactate Venous Routine Lab 07/16/23 14:58 Completed Lactic Acid Stat Lab 07/16/23 14:35 Completed Magnesium AMLAB Lab 07/17/23 06:00 Ordered Rapid PCR Covid and Flu A/B Stat Lab 07/16/23 18:45 Completed Trop I [Troponin I] Stat Lab 07/16/23 14:35 Completed Troponin I Q3H Lab 07/16/23 18:04 Completed Troponin I Q3H Lab 07/16/23 21:20 Completed Blood Culture Stat Micro 07/16/23 19:53 Received Sputum Culture & Gram Stain Stat Micro 07/16/23 15:19 Received ABG [Arterial Blood Gas] Stat RT 07/16/23 16:09 Completed VBG [Venous Blood Gas] Stat RT 07/16/23 14:42 Completed ECG initial [place] Routine Y 07/16/23 14:42 Completed <Isaura N Kee, DO - Last Filed: 07/16/23 23:42> Vital Signs Vital Signs: 07/16/23 14:20 07/16/23 14:59 07/16/23 15:21 Temperature 98.6 F Temperature Source Temporal Artery Scan Pulse Rate 65 61 Pulse Rate [Left Radial] 63 Respiratory Rate 45 H 28 H 22 Blood Pressure 130/67 119/79 Blood Pressure [Right Arm] 130/77 Blood Pressure Mean 85 88 Blood Pressure Mean [Right Arm] 94 Blood Pressure Source Blood Pressure Source [Right Arm] Automatic Cuff Blood Pressure Position Blood Pressure Position [Right Arm] Sitting 02 Sat by Pulse Oximetry 89 L 97 100 Oxygen Delivery Method Room Air BiPAP Mechanical Ventilation 07/16/23 15:10 07/16/23 15:30 07/16/23 20:20 Temperature 99.9 F H Temperature Source Core Pulse Rate 61 62 Pulse Rate [Left Radial] Respiratory Rate 20 24 Blood Pressure 100/67 L 105/64 L Blood Pressure [Right Arm] Blood Pressure Mean 73 Blood Pressure Mean [Right Arm] Blood Pressure Source Automatic Cuff Blood Pressure Source [Right Arm] Blood Pressure Position Supine Blood Pressure Position [Right Arm] 02 Sat by Pulse Oximetry 100 100 Oxygen Delivery Method Mechanical Ventilation Mechanical Ventilation 07/16/23 17:53 Temperature Temperature Source Pulse Rate Pulse Rate [Left Radial] Respiratory Rate 24 Blood Pressure Blood Pressure [Right Arm] Blood Pressure Mean Blood Pressure Mean [Right Arm] Blood Pressure Source Blood Pressure Source [Right Arm] Blood Pressure Position Blood Pressure Position [Right Arm] 02 Sat by Pulse Oximetry 100 Oxygen Delivery Method Lab Data Labs: Lab Results 07/16/23 14:35: WBC 9.7, RBC 4.89, Hgb 15.0, Hct 48.1, MCV 98.3 H, MCH 30.6, MCHC 31.1 L, RDW 15.5, Plt Count 131 L, MPV 9.2, Neut % (Auto) 74.4, Lymph % (Auto) 18.9, [place] % (Auto) 4.9, Eos % (Auto) 1.1, Baso % (Auto) 0.8, Neut # (Auto) 7.2, Lymph # (Auto) 1.8, [place] # (Auto) 0.5, Eos # (Auto) 0.1, Baso # (Auto) 0.1, Sodium 143, Potassium 5.7 H, Chloride 105, Carbon Dioxide 36 H, Anion Gap 7.7, BUN 24 H, Creatinine 1.20, Estimated Creat Clear 68, Estimated GFR 60, Est GFR ( Amer) 72, Glucose 114 H, Lactate 0.9, Calcium 8.5, Total Bilirubin 0.8, AST 30, ALT 19, Alkaline Phosphatase 73, Troponin I 0.04 H, NT-Pro-B Natriuret Pep 2010 H, Total Protein 7.1, Albumin 4.3, Globulin 2.8, Albumin/Globulin Ratio 1.5 07/16/23 14:42: VBG pH 7.24 L, VBG pCO2 73.6 H, VBG pO2 48.0 H, VBG HCO3 30.8 H, VBG Total CO2 33.1 H, VBG O2 Saturation 81.4 H, VBG Base Excess 3.4 H 07/16/23 14:58: VBG Lactic Acid 1.5 07/16/23 16:09: Specimen Source Left radial, O2 % 40, ABG pH 7.35, ABG pCO2 48.0 H, ABG pO2 71.5 L, ABG HCO3 26.1 H, ABG Total CO2 27.6 H, ABG O2 Saturation 94, ABG Base Excess 0.5, Wilmar Test Patient unable, Vent Rate 24, Tidal Volume 420, PEEP 5 07/16/23 18:04: Troponin I 0.06 H 07/16/23 18:45: SARS-CoV-2 (PCR) Not detected, Influenza A Untype (PCR) Not detected, Influenza Type B (PCR) Not detected Response Orders (Tests/Meds): ED MEDICATIONS Generic Name Dose Route Start Last Admin Trade Name Freq PRN Reason Stop Dose Admin Albuterol/Ipratropium 3 ml 07/16/23 22:00 07/16/23 21:55 Ipratropium/Albuterol 3 Ml Neb IH 08/15/23 21:59 3 ml Q4RT ANASTACIA Administration Fentanyl Citrate 12.5 mcg 07/16/23 23:06 Fentanyl 100mcg/2ml Vial IV 08/15/23 23:05 [id number] PRN Severe Pain (7-10) Fentanyl Citrate 1,000 mcg/ 100 mls @ 1 mls/hr 07/16/23 15:43 07/16/23 16:32 Sodium Chloride IV 08/15/23 15:42 80 mcg/hr .Q24H ANASTACIA 8 mls/hr Titration Protocol 10 MCG/HR Propofol 100 mls @ 2.517 mls/hr 07/16/23 15:10 07/16/23 16:54 Diprivan 10mg/Ml 100ml Bottle IV 08/15/23 15:09 12 mcg/kg/min .Q24H ANASTACIA 6.04 mls/hr Titration Protocol 5 MCG/KG/MIN Norepinephrine/Dextrose 8 mg in 250 mls @ 3.75 mls/hr 07/16/23 16:57 07/16/23 19:40 Norepinephrine 8mg/250ml-D5w Premix IV 08/15/23 16:56 2 mcg/min .Q24H ANASTACIA 3.75 mls/hr Administration Protocol 2 MCG/MIN Vancomycin/PEG/NADA/Lysine/Water 1.75 gm in 350 mls @ 175 mls/hr 07/16/23 22:30 07/16/23 22:35 Vancomycin 1.75gm/350ml (Peg) Premix IV 07/17/23 00:29 175 mls/hr ONCE ONE Administration Vancomycin/PEG/NADA/Lysine/Water 1.25 gm in 250 mls @ 125 mls/hr 07/17/23 16:00 Vancomycin 1.25gm/250ml (Peg) Premix IV 07/27/23 15:59 Q18H ANASTACIA Miscellaneous 1 each 07/16/23 18:45 07/16/23 22:36 Vancomycin Consult Request NOTAPPLIC 08/15/23 18:44 1 each CONSULT PHARMACY ANASTACIA Administration Morphine Sulfate 2 mg 07/16/23 19:38 Morphine 2mg/Ml Syringe IV 08/15/23 19:37 Q2HP PRN Severe Pain (7-10) Sodium Chloride 3 ml 07/16/23 15:19 Sodium Chloride 3% 15ml Neb IH 08/15/23 15:18 ONCE PRN INDUCE SPUTUM COLLECTION Sodium Chloride 10 ml 07/16/23 18:36 07/16/23 18:39 Sodium Chloride 0.9% 10ml Syr (Rad Only) IV 08/15/23 18:35 10 ml NEEDED PRN Administration Maintain IV Site Discontinued Medications Generic Name Dose Route Start Last Admin Trade Name Freq PRN Reason Stop Dose Admin Albuterol/Ipratropium 9 ml 07/16/23 14:42 07/16/23 19:48 Ipratropium/Albuterol 3 Ml Neb 07/16/23 14:43 Not Given ONCE ONE Dexamethasone Sodium Phosphate 6 mg 07/16/23 14:44 07/16/23 18:43 Dexamethasone 4mg/Ml 1ml Vial IV 07/16/23 14:45 6 mg ONCE ONE Administration Etomidate 20 mg 07/16/23 15:04 07/16/23 15:04 Etomidate 40mg/20ml Vial IV 07/16/23 15:05 20 mg ONCE ONE Administration Furosemide 40 mg 07/16/23 18:40 07/16/23 21:38 Furosemide 40mg/4ml Vial IV 07/16/23 18:41 40 mg ONCE ONE Administration Cefepime HCl 2 gm/ Sodium 100 mls @ 200 mls/hr 07/16/23 18:40 07/16/23 21:37 Chloride IV 07/16/23 19:09 200 mls/hr ONCE ONE Administration Cefepime HCl 2 gm/ Sodium 100 mls @ 200 mls/hr 07/16/23 22:00 07/16/23 21:59 Chloride IV 07/16/23 22:29 Not Given ONCE ONE Iopamidol 75 ml 07/16/23 18:36 07/16/23 18:38 Iopamidol-370 (76%);100ml Bottle IV 07/16/23 18:37 75 ml ONCE ONE Administration Lorazepam 1 mg 07/16/23 15:10 07/16/23 15:10 Lorazepam 2mg/Ml Vial IV 07/16/23 15:11 1 mg ONCE ONE Administration Lorazepam 1 mg 07/16/23 16:20 07/16/23 16:20 Lorazepam 2mg/Ml Vial IV 07/16/23 16:21 1 mg ONCE ONE Administration Sodium Chloride 50 ml 07/16/23 18:36 07/16/23 18:38 0.9 % Sodium Chloride 50 Ml Vial IV 07/16/23 18:37 50 ml ONCE ONE Administration Succinylcholine Chloride 100 mg 07/16/23 15:05 07/16/23 15:05 Succinylcholine 20mg/Ml 10 Ml Mdv IV 07/16/23 15:06 100 mg ONCE ONE Administration ORDERS Category Date Time Status CT angio chest PE protocol Stat Cat Scan 07/16/23 15:[address] head/brain wo con Stat Cat Scan 07/16/23 15:41 Completed Cardiology Consult [Consult to Cardiology] [CONS] Cons 07/16/23 19:38 Active Routine Pulmonology Consult [Consult to Pulmonology] [CONS] Cons 07/16/23 19:38 Active Stat CXR --portable [XR chest portable] Stat Exams 07/16/23 14:28 Completed Chest XR -- portable [XR chest portable] Stat Exams 07/16/23 15:14 Completed POCUS Point of Care (ER Only) Stat Exams 07/16/23 14:25 Completed BNP [Brain Natriuretic Peptide] Stat Lab 07/16/23 14:35 Completed CBC w/Auto Diff [Complete Blood Count Auto Diff] Stat Lab 07/16/23 14:35 Completed CMP [Comprehensive Metabolic Panel] Stat Lab 07/16/23 14:35 Completed Complete Blood Count Auto Diff AMLAB Lab 07/17/23 06:00 Ordered Comprehensive Metabolic Panel AMLAB Lab 07/17/23 06:00 Ordered Lactate Venous Routine Lab 07/16/23 14:58 Completed Lactic Acid Stat Lab 07/16/23 14:35 Completed Magnesium AMLAB Lab 07/17/23 06:00 Ordered Rapid PCR Covid and Flu A/B Stat Lab 07/16/23 18:45 Completed Trop I [Troponin I] Stat Lab 07/16/23 14:35 Completed Troponin I Q3H Lab 07/16/23 18:04 Completed Troponin I Q3H Lab 07/16/23 21:20 Completed Blood Culture Stat Micro 07/16/23 19:53 Received Sputum Culture & Gram Stain Stat Micro 07/16/23 15:19 Received ABG [Arterial Blood Gas] Stat RT 07/16/23 16:09 Completed VBG [Venous Blood Gas] Stat RT 07/16/23 14:42 Completed ECG initial Besson Routine Y 07/16/23 14:42 Completed ECG Data Tracing #2: Attestation: I reviewed this ECG and interpreted as documented below: ECG Narrative: Ventricularly paced rhythm at 64 bpm. No Sgarbossa criteria concerning for STEMI. ECG initial impression date: 07/16/23 ECG initial impression time: 16:42 MDM Narrative Medical Decision Narrative: In summary patient is a 72-year-old male with past medical history described above who presents emergency department for evaluation of significant respiratory distress. Patient is an extremis upon arrival, speaking in 2 word sentences. BiPAP was placed in an attempt to stave off intubation. Discussion with patient and family at bedside about goals of care, patient is okay being put on a ventilator, patient is not okay with chest compressions or cardiac resuscitative ACLS drugs. Patient has significant pectus excavated him, silent chest, he is not a smoker and does not carry diagnosis of COPD. Differential diagnosis includes restrictive lung disease with resultant hypercapnic respir atory failure and CO2 narcosis, pneumonia, silent ACS, among others. Workup will be conducted with hematologic labs, chest x-ray, EKG, troponin. Upon repeat evaluation patient did not have any improvement, was losing his respiratory drive breathing 45-60 times a minute on BiPAP. Patient will require intubation given that he cannot protect his airway, transition of care was conducted at time of intubation under the direction of Dr. Kee performed by Aakash David. [place] DO: I assumed care of the patient at 1500. Patient was intubated successfully with RAMA Douglas David under my direct supervision. Patient tolerated this very well. Post intubation x-ray was independently interpreted by myself and demonstrated satisfactory placement of the tube. Please radiology read for final interpretation. Patient was sedated on propofol and fentanyl, but he continued to have labile pressures and became hypotensive with any amount of sedation. When attempting to wean sedation to support his blood pressure, he became agitated, so the decision was made to initiate Levophed so that we can appropriately sedate him. His temperature is gradually increased over this time, though he is not truly febrile at this time. No tachycardia. He does have findings concerning for volume overload on lab evaluation with an elevated BNP as well as volume overload on chest x-ray, so sepsis bolus was not administered. Labs also demonstrated mildly elevated initial troponin, second troponin is pe nding. EKG does not demonstrate any acute ST changes. I have ordered a CT scan of the head without contrast and a CTA of the chest, which we are waiting on as of 1758. I feel this is important to rule out other acute causes of his acute respiratory failure, such as PE. CT scan of the head was also ordered in order to evaluate for other causes of altered mental status which could cause respirat ory failure, such as intracranial pathology. We unfortunately have not been able to get the patient to scan at this point given his lability with blood pressures and sedation. Throughout this time, however, I was able to wean the patient down from 100% FiO2 to 40% FiO2, which she has tolerated very well. Overall, he is maintaining well on rather minimal vent settings. Given his labile blood pressures in the setting of respiratory failure and possible sepsis based on his presentation, he was given IV vancomycin and cefepime. Sepsis bolus was not administered, as he has acute respiratory failure and history of CHF, so I feel it would be detrimental to him. Levophed was ordered for lability of blood pressures, however he did not require initiation of this. We were able to take him to the CT scan. I independently interpreted CTs prior to radiology read and noted no acute intracranial abnormality, PE, or pneumothorax however the patient does have findings concerning for pulmonary edema as well as infiltrates concerning for aspiration pneumonia. I had an interactive discussion with the reimbursement specialist, Dr. Nicholson, who advised that he would help participate in care of the patient. I also had an interactive discussion with Dr. Hogue with cardiology given the patient's concern for heart failure who advised he would also be on board with the patient. I then had an interactive discussion with the hospitalist who admitted the patient in stable condition for further evaluation and management.
[2023-07-16 14:56] LABS: Alanine Aminotransferase 19 U/L (12-78); Albumin Level 4.3 g/dl (3.5-5.0); Albumin/Globulin Ratio 1.5 (1.1-1.8); Alkaline Phosphatase 73 U/L (38-126); Anion Gap 7.7 mEq/L (5-15); Aspartate Amino Transferase 30 U/L (17-59); Bilirubin,Total 0.8 mg/dl (0.2-1.3); Blood Urea Nitrogen 24 mg/dl (9-20); Calcium 8.5 mg/dl (8.4-10.2); Carbon Dioxide 36 mmol/L (22.0-30.0); Chloride 105 mmol/L (98-107); Creatinine Clearance Estimated 68 mL/min (50-200); Estimated Glomerular Filt Rate 60 ml/min (>60); GFR (African American) 72 ML/MIN (>60); Globulin 2.8 g/dL (1.3-3.2); Glucose 114 mg/dl (74-100); Potassium 5.7 mmoL/L (3.5-5.1); Sodium 143 mmol/L (136-145); Total Protein,Serum 7.1 g/dl (6.3-8.2)
[2023-07-16 14:57] LABS: Lactic Acid 0.9 mmol/L (0.7-2.1)
[2023-07-16 14:59] LABS: Basophils # 0.1 K/mm3 (0-0.2); Basophils % 0.8 % (0.1-2.0); Eosinophils # 0.1 K/mm3 (0.0-0.4); Eosinophils % 1.1 % (0.1-12.0); Hematocrit 48.1 % (42.0-52.0); Lymphocytes # 1.8 K/mm3 (0.7-4.5); Lymphocytes % 18.9 % (10-50); Mean Corpuscular HGB Conc 31.1 g/dL (31.8-35.4); Mean Corpuscular Hemoglobin 30.6 pg (27.0-31.2); Mean Corpuscular Volume 98.3 fl (80-94); Mean Platelet Volume 9.2 fl (7.4-10.4); Monocytes # 0.5 K/mm3 (0.1-1.0); Monocytes % 4.9 % (1.7-9.3); Neutrophils # 7.2 K/mm3 (1.8-7.8); Neutrophils % 74.4 % (37.0-80.0); Platelet Count 131 K/mm3 (142-424); Red Blood Count 4.89 M/mm3 (4.60-6.20); Red Cell Distribution Width 15.5 % (11.5-17.5); White Blood Count 9.7 K/mm3 (4.8-10.8)
[2023-07-16 15:04] LABS: VBG Base Excess 3.4 mmol/L (-2.4-2.3); VBG HCO3 30.8 mmol/L (23-30); VBG Oxygen Saturation 81.4 % (50-70); VBG PCO2 73.6 mmol/L (35-51); VBG PH 7.24 mmol/L (7.31-7.41); VBG Total CO2 33.1 mmol/L (23-27)
[2023-07-16] MEDS: ETOMIDATE 40MG/20ML VIAL 20 MG IV (15:04)
[2023-07-16 15:05] LABS: Lactate Venous 1.5 mmol/L (0.4-2.0)
[2023-07-16] MEDS: SUCCINYLCHOLINE 20MG/ML 10 ML MDV 100 MG IV (15:05)
--- NOTE | 2023-07-16 15:05 | PC.NURSE ---
7.5 ETT placed, 24 at the teeth
[2023-07-16 15:07] LABS: NT Pro Brain Natriuretic Pep. 2010 pg/mL (0-125); Troponin I 0.04 ng/ml (0.00-0.034)
[2023-07-16] MEDS: LORazepam 2MG/ML VIAL 1 MG IV ×2 (15:10→16:20)
[2023-07-16] MEDS: propofoL 100 ML 2.52000000000000002 MG IV (15:10)
--- NOTE | 2023-07-16 15:14 | XR_ITS ---
FINAL REPORT CLINICAL HISTORY: Tube placement COMPARISON: 30 minutes prior FINDINGS: A portable view of the chest was obtained. There is a new ET tube with the tip 3 cm above the jeannine. There are no changes in the left AICD. Cardiac and mediastinal silhouettes are within normal limits. There are persistent low lung volumes. There are increased interstitial markings which are unchanged.. There is no pneumothorax.. IMPRESSION: New ET tube tip 3 cm above the jeannine. Persistent low lung volumes with increased interstitial markings. Reviewed, Interpreted and Dictated by Jeannine Vega MD Transcribed by Bibiana Chan Authenticated and . [facility]
--- NOTE | 2023-07-16 15:40 | CT_ITS ---
PROCEDURE INFORMATION: Exam: CTA Chest With Contrast Exam date and time: 07/16/2023 6:19 PM Age: 72 years old Clinical indication: Shortness of breath; Additional info: Acute respiratory failure requiring intubation TECHNIQUE: Imaging protocol: Computed tomographic angiography of the chest with contrast. Exam focused on the arteries. 3D rendering (Not supervised by radiologist): MIP and/or 3D reconstructed images were created by the technologist. Radiation optimization: All CT scans at this facility use at least one of these dose optimization techniques: automated exposure control; mA and/or kV adjustment per patient size (includes targeted exams where dose is matched to clinical indication); or iterative reconstruction. Contrast material: ISOVUE 370; Contrast volume: 75 ml; Contrast route: INTRAVENOUS (IV); COMPARISON: [facility] CTA-CHEST 08/13/2016 2:36 PM FINDINGS: Tubes, catheters and devices: Endotracheal tube terminates at the level of the clavicles. A 2 lead internal cardiac device implanted at the left chest with leads extending to the right heart. Postsurgical changes compatible with aortic valve replacement with left atrial occlusion device in place. Pulmonary arteries: Normal. No pulmonary emboli. Aorta: Unremarkable. No aortic aneurysm. No aortic dissection. Trachea: There is layering debris at the mid trachea compatible with aspirated material. Lungs: Compressive atelectasis of the lungs. Near complete atelectasis of the left lower lobe. Pleural spaces: Small bilateral pleural effusions are present. Heart: Unremarkable. No cardiomegaly. No pericardial effusion. Lymph nodes: Unremarkable. No enlarged lymph nodes. Bones/joints: Unremarkable. No acute fracture. Soft tissues: Unremarkable. IMPRESSION: 1. There is layering debris at the mid trachea compatible with aspirated material. 2. Small bilateral pleural effusions with compressive atelectasis. 3. Near complete atelectasis of the left lower lobe. 4. No CT angiography evidence of pulmonary embolism.
--- NOTE | 2023-07-16 15:41 | CT_ITS ---
PROCEDURE INFORMATION: Exam: CT Head Without Contrast Exam date and time: 07/16/2023 6:15 PM Age: 72 years old Clinical indication: Altered mental status/memory loss; Confusion or disorientation; Patient HX: On ventillator; Additional info: AMS TECHNIQUE: Imaging protocol: Computed tomography of the head without contrast. Radiation optimization: All CT scans at this facility use at least one of these dose optimization techniques: automated exposure control; mA and/or kV adjustment per patient size (includes targeted exams where dose is matched to clinical indication); or iterative reconstruction. COMPARISON: No relevant prior studies available. FINDINGS: Tubes, catheters and devices: There is an endotracheal tube in place. Brain: There is no evidence of acute intracranial hemorrhage, extra-axial collection or locoregional mass effect. There are scattered hypodensities in the periventricular and subcortical white matter. The appearance is nonspecific, but most likely represents chronic small vessel disease in a person of this age Cerebral ventricles: There is diffuse prominence of the ventricles and CSF containing spaces which can be attributed to age-related volume loss. No hydrocephalus or midline shift identified. Pituitary gland and sella: Sellar/parasellar structures, craniocervical junction and orbits are unremarkable Paranasal sinuses: Mucous retention cyst versus polyp in the left maxillary sinus. Mastoid air cells: Visualized mastoid air cells are well aerated. Bones/joints: No calvarial fracture Soft tissues: Unremarkable. IMPRESSION: No acute intracranial abnormality
[2023-07-16] MEDS: FENTANYL CITRATE/PF 1,000 MCG in 0.9 % SODIUM CHLORIDE 80 ML 1 MCG IV (15:45)
[2023-07-16 16:12] LABS: ABG Base Excess 0.5 mmol/L (-2.4-2.3); ABG HCO3 26.1 mmhg (22.0-26.0); ABG Oxygen Saturation 94 % (90-100); ABG PH 7.35 mmol/L (7.35-7.45); ABG PO2 71.5 mmhg (80-100); ABG TCO2 27.6 mmhg (23-27)
[2023-07-16 16:14] LABS: Allen's Test Patient Unable; Oxygen 40 %; PEEP 5; Source Left Radial; Tidal Volume 420; Vent Rate 24
--- NOTE | 2023-07-16 16:40 | ECG_ITS ---
APPROVED REPORT Exam: Resting ECG HR:64 bpm ECG Measurements Heart Rate 64 AXES QRSd 162 QRS -75 QT 454 T 93 QTc 464 Conclusion ELECTRONIC VENTRICULAR PACEMAKER ABNORMAL RHYTHM ECG UNCONFIRMED REPORT Electronically signed by : Jorge Marsh MD 07/17/2023 19:32:34
--- NOTE | 2023-07-16 18:19 | PC.NURSE ---
DR MCKINNON SPEAKING WITH DR GRAFF
[2023-07-16] MEDS: IOPAMIDOL-370 (76%);100ML BOTTLE 75 ML IV (18:38)
[2023-07-16] MEDS: 0.9 % SODIUM CHLORIDE 50 ML VIAL IV (18:38)
[2023-07-16] MEDS: SODIUM CHLORIDE 0.9% 10ML SYR (RAD ONLY) 10 ML IV (18:39)
[2023-07-16] MEDS: DEXAMETHASONE 4MG/ML 1ML VIAL 6 MG IV (18:43)
--- NOTE | 2023-07-16 18:48 | PC.NURSE ---
lab at [facility]
[2023-07-16 18:52] LABS: Coronavirus 19, PCR Not Detected (NotDetected); Influenza A, PCR Not Detected (NotDetected); Influenza B, PCR Not Detected (NotDetected)
[2023-07-16 18:53] LABS: Troponin I 0.06 ng/ml (0.00-0.034)
[2023-07-16] MEDS: NOREPINEPHRINE BITARTRATE/D5W 8 MG/250 ML PLAST..BAG 3.75 MG IV (19:40)
--- NOTE | 2023-07-16 19:41 | P.HP_ITS ---
History of Present Illness *Admission Date: 07/16/23 *Reason for visit:: SOB *History of present illness: This is a 72-year-old male with PMHx of aortic stenosis status post TAVR, V-fib status post pacemaker placement, paroxysmal atrial fibrillation, CHF, hypertension who presents emergency department for evaluation of shortness of breath. Onset was acute, worsening over the last week, acutely worsened since this morning. Patient had significant difficulty breathing. Family at bedside state that he is not a smoker, does not have a history of COPD. He has been speaking intermittently nonsensically, after waking up today they found that he was hypoxic to the 70s which improved after he was roused. He is more somnolent than normal. Patient denies chest pain however is only able to speak in 1-3 word sentences. Admitted for treatment and management [facility] Disclaimer: The information contained in this section may have been updated after the patient was seen, as this information can be updated by other users. Medical History Atrial fibrillation Congestive heart failure HTN (hypertension) Presence of combination internal cardiac defibrillator (ICD) and pacemaker Valvular heart disease Surgical History Hx of tonsillectomy Social History Smoking Status: Never smoker second hand exposure: No alcohol intake: former substance use type: denies use current occupational status: retired Travel in the last 8 weeks: Inside the [place] household members: spouse housing: house current occupational exposures/hazards: No caffeine: No Review of Systems Review of Systems Review of systems:: unable to obtain Meds Home Medications and Allergies Home Medications Medication Instructions Recorded Confirmed Type apixaban 5 mg tablet (Eliquis) 5 mg PO BID Blood thinner/Afib 06/15/17 07/17/23 History aspirin 81 mg tablet,delayed 81 mg PO DAILY Heart Health 06/15/17 07/17/23 History release (Adult Low Dose Aspirin) furosemide 40 mg tablet (Lasix) 40 mg PO DAILY Fluid 06/15/17 07/17/23 History lisinopril 10 mg tablet 10 mg PO DAILY High Blood Pressure 06/15/17 07/17/23 History allopurinol 100 mg tablet 100 mg PO DAILY Gout 01/10/21 07/17/23 History potassium chloride 20 mEq 20 meq PO DAILY Supplement 08/01/22 07/17/23 History tablet,extended release(part/cryst) ketorolac 0.4 % eye drops 1 drp ophthalmic (eye) Q4H 07/17/23 07/17/23 History metoprolol succinate 100 mg 100 mg PO DAILY High Blood Pressure 07/17/23 07/17/23 History tablet,extended release 24 hr (Toprol XL) ofloxacin 0.3 % eye drops 1 drp ophthalmic (eye) Q4H 07/17/23 07/17/23 History prednisolone acetate 1 % eye 1 drp ophthalmic (eye) Q4H 07/17/23 07/17/23 History drops,suspension New Prescriptions to Start Prescriptions: Allergies Allergy/AdvReac Type Severity Reaction Status Date / Time No Known Allergies Allergy Verified 01/29/23 09:58 Exam Data for Last 24 hours Vital signs and Labs for Last 24 Hours: Temp Pulse Resp BP Pulse Ox O2 Del Method FiO2 98.6 F 61 20 100/67 L 100 Mechanical Ventilation 60 07/16/23 14:20 07/16/23 15:30 07/16/23 15:30 07/16/23 15:30 07/16/23 15:30 07/16/23 15:30 07/16/23 15:10 Laboratory Results - last 24 hr 07/16/23 14:35: WBC 9.7, RBC 4.89, Hgb 15.0, Hct 48.1, MCV 98.3 H, MCH 30.6, MCHC 31.1 L, RDW 15.5, Plt Count 131 L, MPV 9.2, Neut % (Auto) 74.4, Lymph % (Auto) 18.9, [place] % (Auto) 4.9, Eos % (Auto) 1.1, Baso % (Auto) 0.8, Neut # (Auto) 7.2, Lymph # (Auto) 1.8, [place] # (Auto) 0.5, Eos # (Auto) 0.1, Baso # (Auto) 0.1, Sodium 143, Potassium 5.7 H, Chloride 105, Carbon Dioxide 36 H, Anion Gap 7.7, BUN 24 H, Creatinine 1.20, Estimated Creat Clear 68, Estimated GFR 60, Est GFR ( Amer) 72, Glucose 114 H, Lactate 0.9, Calcium 8.5, Total Bilirubin 0.8, AST 30, ALT 19, Alkaline Phosphatase 73, Troponin I 0.04 H, NT-Pro-B Natriuret Pep 2010 H, Total Protein 7.1, Albumin 4.3, Globulin 2.8, Albumin/Globulin Ratio 1.5 07/16/23 14:42: VBG pH 7.24 L, VBG pCO2 73.6 H, VBG pO2 48.0 H, VBG HCO3 30.8 H, VBG Total CO2 33.1 H, VBG O2 Saturation 81.4 H, VBG Base Excess 3.4 H 07/16/23 14:58: VBG Lactic Acid 1.5 07/16/23 16:09: Specimen Source Left radial, O2 % 40, ABG pH 7.35, ABG pCO2 48.0 H, ABG pO2 71.5 L, ABG HCO3 26.1 H, ABG Total CO2 27.6 H, ABG O2 Saturation 94, ABG Base Excess 0.5, [place] Test Patient unable, Vent Rate 24, Tidal Volume 420, PEEP 5 07/16/23 18:04: Troponin I 0.06 H I & O for Last 24 hours: Intake & Output 07/13/23 07/14/23 07/15/23 07/16/23 23:59 23:59 23:59 23:59 Intake Total 6.852 / 6.852 Balance 6.852 / 6.852 Weight 83.915 kg Constitutional Comments: sedated *Routine HEENT Exam Head: Present normocephalic and atraumatic Eye: Present EOMI, PERRL and normal accommodation ENT: Present mucous membranes moist *Routine Neck Exam Neck: Present supple, full ROM and trachea midline *Routine Respiratory Exam Respiratory: Present patient mechanically ventilated *Routine Cardiovascular Exam Cardiovascular: Present RRR, Normal S1 and Normal S2 *Routine Abdominal Exam Abdominal: Present soft and normoactive bowel sounds; Absent tenderness *Routine Rectal Exam Rectal:: deferred *Routine Genitalia Exam Genitalia:: deferred *Routine Extremities Exam Extremities: Absent cyanosis, clubbing or edema *Routine Skin Exam Skin: Present intact; Absent erythema or rash *Routine Neurological Exam Neurological: Present altered mental status Routine Psychiatric Exam Psychiatric: Present unable to assess H&P: Result Imaging and Cardiology CT scan - chest: Status: image reviewed by me, Preliminary report and final report EKG: Status: image reviewed by me and Preliminary report Assessment and Plan *Assessment and plan (1) Acute respiratory failure: Status: Acute Qualifiers: Respiratory failure complication: hypoxia and hypercapnia Qualified Code(s): J96.01 - Acute respiratory failure with hypoxia; J96.02 - Acute respiratory failure with hypercapnia Category: Medical Code(s): J96.00 - Acute respiratory failure, unspecified whether with hypoxia or hypercapnia (2) On mechanically assisted ventilation: Status: Acute Category: Medical Code(s): Z99.11 - Dependence on respirator [ventilator] status (3) Lung disease, restrictive: Status: Acute Category: Medical Code(s): J98.4 - Other disorders of lung (4) Pectus excavatum: Status: Acute Category: Medical Code(s): Q67.6 - Pectus excavatum (5) CHF exacerbation: Status: Acute Qualifiers: Heart failure type: unspecified Qualified Code(s): I50.9 - Heart failure, unspecified Category: Medical Code(s): I50.9 - Heart failure, unspecified (6) HTN (hypertension): Status: Chronic Qualifiers: Hypertension type: primary hypertension Qualified Code(s): I10 - Essential (primary) hypertension Category: Medical Code(s): I10 - Essential (primary) hypertension (7) Congestive heart failure: Status: Chronic Qualifiers: Heart failure type: biventricular Qualified Code(s): I50.82 - Biventricular heart failure Category: Medical Code(s): I50.9 - Heart failure, unspecified (8) History of mitral valve replacement with tissue graft: Status: Chronic Category: Surgical Code(s): Z95.4 - Presence of other heart-valve replacement (9) Automatic implantable cardiac defibrillator in situ: Status: Chronic Category: Medical Code(s): Z95.810 - Presence of automatic (implantable) cardiac defibrillator Plan 72-year-old male with PMHx of aortic stenosis status post TAVR, V-fib status post pacemaker placement, paroxysmal atrial fibrillation, CHF, hypertension who presents emergency department for evaluation of shortness of breath. On arrival, patient seems to be more on respiratory distress, BiPAP was placed, will not progress subsequently intubated. Sedation was started on fentanyl and propofol. Initial lab demonstrated mild elevated troponin therefore CTA of the chest was ordered to rule out any acute causes respiratory failure or PE. Started on vancomycin and cefepime 1 dose given. Findings discussed with ER for admission. Patient seen and evaluated after vent. pulmonology and cardiology are consulted plan as follow: Acute hypoxic and hypercapnic respiratory failure, on mechanical vent: In the setting of restrictive lung disease Pectus excavatum: Admit patient for ICU. Currently on vent. Wean off Sedation by propofol and fentanyl Critical care pulmonology consult Cardiology consult 1 dose of Lasix given IV Respiratory therapist to assist with care Monitor vital signs per unit protocol Repeat labs in the morning. ABG serial -CHF exacerbation: History of mitral regurgitation pacemaker in situ TAVR Suspected pulmonary edema: Responding well to IV diuresis. Continue monitor for renal output Cardiology on board Last echo from February 2020 showed preserved ejection Lovenox for DVT prophylaxis. Protonix for GI bleed protection Full code Patient was seen and evaluated at the bedside. No reported acute events overn ight, denies chest pain, shortness of breath, nausea, vomiting, abdominal pain.
--- NOTE | 2023-07-16 19:48 | PC.NURSE ---
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
[2023-07-16] MEDS: CEFEPIME HCL 2 GM in 0.9 % SODIUM CHLORIDE 100 ML IV (21:37)
[2023-07-16] MEDS: FUROSEMIDE 40MG/4ML VIAL 40 MG IV (21:38)
[2023-07-16 21:55] LABS: Troponin I 0.05 ng/ml (0.00-0.034)
[2023-07-16] MEDS: IPRATROPIUM/ALBUTEROL 3 ML NEB IH (21:55)
[2023-07-16] MEDS: VANCOMYCIN/WATER FOR INJ (PEG) 1.75 GM/350 ML PIGGYBACK IV (22:35)
[2023-07-16] MEDS: VANCOMYCIN CONSULT REQUEST 1 EACH NOTAPPLIC (22:36)
[2023-07-17] VITALS (56 sets, daily range): BP systolic 67–154; BP diastolic 36–91; PULSE 55–119; RESP 16–52; TEMP 37.1–37.7; O2SAT 95–100; BMI 28.5
[2023-07-17] MEDS: propofoL 100 ML 6.04000000000000004 MG IV (00:35)
[2023-07-17] MEDS: IPRATROPIUM/ALBUTEROL 3 ML NEB IH ×6 (02:03→22:10)
[2023-07-17] MEDS: FENTANYL CITRATE/PF 1,000 MCG in 0.9 % SODIUM CHLORIDE 80 ML 8 MCG IV (04:49)
[2023-07-17 06:51] LABS: Basophils # 0.1 K/mm3 (0-0.2); Basophils % 0.8 % (0.1-2.0); Hematocrit 46.8 % (42.0-52.0); Hemoglobin 14.9 g/dL (14.1-18.0); Lymphocytes # 1.2 K/mm3 (0.7-4.5); Lymphocytes % 11.8 % (10-50); Mean Corpuscular HGB Conc 31.8 g/dL (31.8-35.4); Mean Corpuscular Hemoglobin 30.5 pg (27.0-31.2); Mean Corpuscular Volume 95.9 fl (80-94); Mean Platelet Volume 9.5 fl (7.4-10.4); Monocytes # 0.4 K/mm3 (0.1-1.0); Monocytes % 3.9 % (1.7-9.3); Neutrophils # 8.3 K/mm3 (1.8-7.8); Neutrophils % 83.6 % (37.0-80.0); Platelet Count 147 K/mm3 (142-424); Red Blood Count 4.88 M/mm3 (4.60-6.20); Red Cell Distribution Width 15.6 % (11.5-17.5); White Blood Count 9.9 K/mm3 (4.8-10.8)
[2023-07-17 06:54] LABS: Alanine Aminotransferase 22 U/L (12-78); Albumin Level 3.8 g/dl (3.5-5.0); Albumin/Globulin Ratio 1.5 (1.1-1.8); Alkaline Phosphatase 79 U/L (38-126); Anion Gap 13.5 mEq/L (5-15); Aspartate Amino Transferase 28 U/L (17-59); Bilirubin,Total 1.2 mg/dl (0.2-1.3); Blood Urea Nitrogen 23 mg/dl (9-20); Calcium 8.6 mg/dl (8.4-10.2); Carbon Dioxide 24 mmol/L (22.0-30.0); Chloride 107 mmol/L (98-107); Creatinine Clearance Estimated 80 mL/min (50-200); Estimated Glomerular Filt Rate 66 ml/min (>60); GFR (African American) 80 ML/MIN (>60); Globulin 2.6 g/dL (1.3-3.2); Glucose 134 mg/dl (74-100); Magnesium 2.1 mg/dl (1.6-2.3); Potassium 4.5 mmoL/L (3.5-5.1); Sodium 140 mmol/L (136-145); Total Protein,Serum 6.4 g/dl (6.3-8.2)
[2023-07-17] MEDS: propofoL 100 ML 10.0700000000000003 MG IV (07:42)
--- NOTE | 2023-07-17 07:49 | EXP.PHA.CONS ---
Pharmacy Consult Date: 07/17/23 Time: 07:49 Referring provider: DR HAWKINS Reason for Consult:: VANCOMYCIN DOSING CONSULT Allergies Allergy/AdvReac Type Severity Reaction Status Date / Time No Known Allergies Allergy Verified 01/29/23 09:58 Home Medications Medication Instructions Recorded Confirmed Type apixaban 5 mg tablet (Eliquis) 5 mg PO BID Blood thinner 06/15/17 01/29/23 History aspirin 81 mg tablet,delayed 81 mg PO QDAY heart 06/15/17 01/29/23 History release (Adult Low Dose Aspirin) furosemide 40 mg tablet (Lasix) 40 mg PO QDAY Fluid 06/15/17 01/29/23 History lisinopril 10 mg tablet 10 mg PO QDAY bp 06/15/17 01/29/23 History loratadine 10 mg tablet (Claritin) 10 mg PO QDAY allergies 06/15/17 01/29/23 History melatonin 5 mg tablet 10 mg PO HS sleep 06/16/17 01/29/23 History acetaminophen 500 mg tablet 500 mg PO Q6H PRN pain 09/09/18 01/29/23 History (Tylenol Extra Strength) calcium carbonate 600 mg-vitamin 1 cap PO DAILY Supplement 09/09/18 01/29/23 History D3 5 mcg (200 unit) capsule (Calcium 600 + D(3)) methylcellulose (laxative) 500 mg 500 mg PO DAILY 01/05/20 01/29/23 History tablet (Citrucel) polyethylene glycol 3350 17 17 g PO DAILY 01/05/20 01/29/23 History gram/dose oral powder (Miralax) allopurinol 100 mg tablet 100 mg PO DAILY 01/10/21 01/29/23 History ipratropium bromide 0.02 % 2.5 ml inhalation QID PRN 01/10/21 01/29/23 History solution for inhalation metoprolol succinate 100 mg 100 mg PO DAILY #90 tabs 12/20/21 01/29/23 Rx tablet,extended release 24 hr (Toprol XL) ipratropium bromide 21 mcg (0.03 2 spray intranasal BID 08/01/22 01/29/23 History %) nasal spray potassium chloride 20 mEq 20 meq PO DAILY 08/01/22 01/29/23 History tablet,extended release(part/cryst) New Prescriptions to Start Prescriptions: Height: 1.78 m Weight: 90.492 kg Laboratory Results:: Laboratory Results - last 24 hr 07/16/23 14:35: WBC 9.7, RBC 4.89, Hgb 15.0, Hct 48.1, MCV 98.3 H, MCH 30.6, MCHC 31.1 L, RDW 15.5, Plt Count 131 L, MPV 9.2, Neut % (Auto) 74.4, Lymph % (Auto) 18.9, [place] % (Auto) 4.9, Eos % (Auto) 1.1, Baso % (Auto) 0.8, Neut # (Auto) 7.2, Lymph # (Auto) 1.8, [place] # (Auto) 0.5, Eos # (Auto) 0.1, Baso # (Auto) 0.1, Sodium 143, Potassium 5.7 H, Chloride 105, Carbon Dioxide 36 H, Anion Gap 7.7, BUN 24 H, Creatinine 1.20, Estimated Creat Clear 68, Estimated GFR 60, Est GFR ( Amer) 72, Glucose 114 H, Lactate 0.9, Calcium 8.5, Total Bilirubin 0.8, AST 30, ALT 19, Alkaline Phosphatase 73, Troponin I 0.04 H, NT-Pro-B Natriuret Pep 2010 H, Total Protein 7.1, Albumin 4.3, Globulin 2.8, Albumin/Globulin Ratio 1.5 07/16/23 14:42: VBG pH 7.24 L, VBG pCO2 73.6 H, VBG pO2 48.0 H, VBG HCO3 30.8 H, VBG Total CO2 33.1 H, VBG O2 Saturation 81.4 H, VBG Base Excess 3.4 H 07/16/23 14:58: VBG Lactic Acid 1.5 07/16/23 16:09: Specimen Source Left radial, O2 % 40, ABG pH 7.35, ABG pCO2 48.0 H, ABG pO2 71.5 L, ABG HCO3 26.1 H, ABG Total CO2 27.6 H, ABG O2 Saturation 94, ABG Base Excess 0.5, [place] Test Patient unable, Vent Rate 24, Tidal Volume 420, PEEP 5 07/16/23 18:04: Troponin I 0.06 H 07/16/23 18:45: SARS-CoV-2 (PCR) Not detected, Influenza A Untype (PCR) Not detected, Influenza Type B (PCR) Not detected 07/16/23 21:20: Troponin I 0.05 H 07/17/23 05:47: WBC 9.9, RBC 4.88, Hgb 14.9, Hct 46.8, MCV 95.9 H, MCH 30.5, MCHC 31.8, RDW 15.6, Plt Count 147, MPV 9.5, Neut % (Auto) 83.6 H, Lymph % (Auto) 11.8, [place] % (Auto) 3.9, Eos % (Auto) 0.0 L, Baso % (Auto) 0.8, Neut # (Auto) 8.3 H, Lymph # (Auto) 1.2, [place] # (Auto) 0.4, Eos # (Auto) 0.0, Baso # (Auto) 0.1, Sodium 140, Potassium 4.5 D, Chloride 107, Carbon Dioxide 24, Anion Gap 13.5, BUN 23 H, Creatinine 1.10, Estimated Creat Clear 80, Estimated GFR 66, Est GFR ( Amer) 80, Glucose 134 H, Calcium 8.6, Magnesium 2.1, Total Bilirubin 1.2, AST 28, ALT 22, Alkaline Phosphatase 79, Total Protein 6.4, Albumin 3.8 D, Globulin 2.6, Albumin/Globulin Ratio 1.5 Medical History: Medical History (Updated 07/17/23 @ 04:42 by Jose Luis Abarca APRN) Atrial fibrillation Congestive heart failure HTN (hypertension) Presence of combination internal cardiac defibrillator (ICD) and pacemaker Valvular heart disease Assessment and Plan Assessment and plan all Dx Assessment and Plan for all problems:: Pharmacokinetic dosing service Objective: Age: 72 yo Serum creatinine: 1.1 mg/dL Height: 70.1 Inches Weight (kg): 90.492 Diagnosis: PNEUMONIA Assessment: IBW (kg): 73.23 Dosing wt(kg): 90.492 Estimated Creatinine clearance (ml/min): 64.7 CRCL method: Cockcroft and Gault using ibw(default). Drug selected: Vancomycin Loading dose (mg): 1750 MG Vd (liters): 63.3 (factor used: 0.7 L/kg) Dirk (hr-1): 0.058 Half life (hrs): 11.95 CLvanco=?? 3.671 L/hr Recommended dose: 1500 mg Interval: 18 hrs Infusion time (hrs): 2.0 Predicted peak (mcg/mL): 34.5 Predicted trough (mcg/mL): 13.64 Total body weight is being used for vancomycin dosing. Recommendations: Give Vancomycin 1500 mg q 18 hrs with an expected Cpeak of 34.5 mcg/ml and an expected Ctrough of 13.64 mcg/ml TO START 07/17/23 AT 16:30, LOADING DOSE OF VANCOMYCIN 1750 MG GIVEN 07/16/23 AT 22:35. AUC 0-24 /CONSTANZA Data: CONSTANZA 0.5 mcg/mL:?? AUC/CONSTANZA:? 1089.6 CONSTANZA 1.0 mcg/mL:?? AUC/CONSTANZA:? 544.8 --------- CONSTANZA 1.5 mcg/mL:?? AUC/CONSTANZA:? 363.2 CONSTANZA 2.0 mcg/mL:?? AUC/CONSTANZA:? 272.4 Thank you for the consult
--- NOTE | 2023-07-17 09:57 | HMH.PHAINT1 ---
Pharmacy Intervention Comments: MEDICATION RECONCILIATION COMPLETED ON PATIENT USING EXTERNAL FILL HISTORY FROM PHARMACY. -LUCINA DAWSON, [place]
--- NOTE | 2023-07-17 10:00 | P.CONS_ITS ---
History of Present Illness History of present illness: Mr. Ferguson is a 72-year-old male with a history of mitral stones status post TAVR, BPH status post pacemaker, A-fib, CHF, no significant smoking history, no prior respiratory complaints at baseline, questionable sleep apnea, presented to the ER with hypoxia and altered mentation intubated for airway protection mechanical ventilatory support and pulmonary was called for further evaluation and management. Upon questioning patient states that he is a never smoker denies any respiratory problems with patient has been progressively getting worse with respect to his worsening altered mentation for the last week prior to his presentation to the ER. [facility] Disclaimer: The information contained in this section may have been updated after the patient was seen, as this information can be updated by other users. Medical History Atrial fibrillation Congestive heart failure HTN (hypertension) Presence of combination internal cardiac defibrillator (ICD) and pacemaker Valvular heart disease Surgical History Hx of tonsillectomy Social History Smoking Status: Never smoker second hand exposure: No alcohol intake: former substance use type: denies use current occupational status: retired Travel in the last 8 weeks: Inside the [place] household members: spouse housing: house current occupational exposures/hazards: No caffeine: No Review of Systems Review of Systems Review of systems:: unable to obtain Review of systems (narrative): Intubated and sedated Pulmonology Exam Inpatient Vital signs and Labs for Last 24 Hours: Temp Pulse Resp BP Pulse Ox O2 Del Method FiO2 99.5 F 60 24 147/84 H 96 Mechanical Ventilation 30 07/17/23 09:19 07/17/23 09:19 07/17/23 09:19 07/17/23 09:19 07/17/23 09:19 07/17/23 09:19 07/17/23 09:19 Laboratory Results - last 24 hr 07/16/23 14:35: WBC 9.7, RBC 4.89, Hgb 15.0, Hct 48.1, MCV 98.3 H, MCH 30.6, MCHC 31.1 L, RDW 15.5, Plt Count 131 L, MPV 9.2, Neut % (Auto) 74.4, Lymph % (Auto) 18.9, [place] % (Auto) 4.9, Eos % (Auto) 1.1, Baso % (Auto) 0.8, Neut # (Auto) 7.2, Lymph # (Auto) 1.8, [place] # (Auto) 0.5, Eos # (Auto) 0.1, Baso # (Auto) 0.1, Sodium 143, Potassium 5.7 H, Chloride 105, Carbon Dioxide 36 H, An ion Gap 7.7, BUN 24 H, Creatinine 1.20, Estimated Creat Clear 68, Estimated GFR 60, Est GFR ( Amer) 72, Glucose 114 H, Lactate 0.9, Calcium 8.5, Total Bilirubin 0.8, AST 30, ALT 19, Alkaline Phosphatase 73, Troponin I 0.04 H, NT-Pro-B Natriuret Pep 2010 H, Total Protein 7.1, Albumin 4.3, Globulin 2.8, Albumin/Globulin Ratio 1.5 07/16/23 14:42: VBG pH 7.24 L, VBG pCO2 73.6 H, VBG pO2 48.0 H, VBG HCO3 30.8 H, VBG Total CO2 33.1 H, VBG O2 Saturation 81.4 H, VBG Base Excess 3.4 H 07/16/23 14:58: VBG Lactic Acid 1.5 07/16/23 16:09: Specimen Source Left radial, O2 % 40, ABG pH 7.35, ABG pCO2 48.0 H, ABG pO2 71.5 L, ABG HCO3 26.1 H, ABG Total CO2 27.6 H, ABG O2 Saturation 94, ABG Base Excess 0.5, [place] Test Patient unable, Vent Rate 24, Tidal Volume 420, PEEP 5 07/16/23 18:04: Troponin I 0.06 H 07/16/23 18:45: SARS-CoV-2 (PCR) Not detected, Influenza A Untype (PCR) Not detected, Influenza Type B (PCR) Not detected 07/16/23 21:20: Troponin I 0.05 H 07/17/23 05:47: WBC 9.9, RBC 4.88, Hgb 14.9, Hct 46.8, MCV 95.9 H, MCH 30.5, MCHC 31.8, RDW 15.6, Plt Count 147, MPV 9.5, Neut % (Auto) 83.6 H, Lymph % (Auto) 11.8, [place] % (Auto) 3.9, Eos % (Auto) 0.0 L, Baso % (Auto) 0.8, Neut # (Auto) 8.3 H, Lymph # (Auto) 1.2, [place] # (Auto) 0.4, Eos # (Auto) 0.0, Baso # (Auto) 0.1, Sodium 140, Potassium 4.5 D, Chloride 107, Carbon Dioxide 24, Anion Gap 13.5, BUN 23 H, Creatinine 1.10, Estimated Creat Clear 80, Estimated GFR 66, Est GFR ( Amer) 80, Glucose 134 H, Calcium 8.6, Magnesium 2.1, Total Bilirubin 1.2, AST 28, ALT 22, Alkaline Phosphatase 79, Total Protein 6.4, Albumin 3.8 D, Globulin 2.6, Albumin/Globulin Ratio 1.5 I & O for Labs for Last 24 Hours: Intake & Output 07/14/23 07/15/23 07/16/23 07/17/23 23:59 23:59 23:59 23:59 Intake Total 6.852 / 841.681 7579.802 / 1096.802 Output Total 125 / 1825 2175 / 2175 Balance -118.148 / -1418.148 -1078.198 / -1078.198 Weight 199 lb 5 oz 199 lb 8 oz Constitutional: Present severe distress Comment:: Intubated and Sedated Head: Present normocephalic and atraumatic Neck: Present normal inspection and trachea midline Respiratory: Present patient mechanically ventilated and rhonchi; Absent respiratory distress, wheezes or normal respiratory effort Cardiac: Present S1/S2 and Tachycardia GI: Present soft; Absent distention or tenderness Skin: Present intact; Absent cyanosis Neuro: Absent alert, awake or oriented x 3 Comment:: Intubated and sedated Extremities: Present normal inspection; Absent clubbing or cyanosis Psychiatric: Present unable to assess Meds Home Medications and Allergies Home Medications Medication Instructions Recorded Confirmed Type apixaban 5 mg tablet (Eliquis) 5 mg PO BID Blood thinner/Afib 06/15/17 07/17/23 History aspirin 81 mg tablet,delayed 81 mg PO DAILY Heart Health 06/15/17 07/17/23 History release (Adult Low Dose Aspirin) furosemide 40 mg tablet (Lasix) 40 mg PO DAILY Fluid 06/15/17 07/17/23 History lisinopril 10 mg tablet 10 mg PO DAILY High Blood Pressure 06/15/17 07/17/23 History allopurinol 100 mg tablet 100 mg PO DAILY Gout 01/10/21 07/17/23 History potassium chloride 20 mEq 20 meq PO DAILY Supplement 08/01/22 07/17/23 History tablet,extended release(part/cryst) ketorolac 0.4 % eye drops 1 drp ophthalmic (eye) Q4H 07/17/23 07/17/23 History metoprolol succinate 100 mg 100 mg PO DAILY High Blood Pressure 07/17/23 07/17/23 History tablet,extended release 24 hr (Toprol XL) ofloxacin 0.3 % eye drops 1 drp ophthalmic (eye) Q4H 07/17/23 07/17/23 History prednisolone acetate 1 % eye 1 drp ophthalmic (eye) Q4H 07/17/23 07/17/23 History drops,suspension New Prescriptions to Start Prescriptions: Allergies Allergy/AdvReac Type Severity Reaction Status Date / Time No Known Allergies Allergy Verified 01/29/23 09:58 Results Laboratory Findings 07/17/23 05:47 07/17/23 05:47 ABG ABG pH 7.35 mmol/L (7.35-7.45) 07/16/23 16:09 ABG pCO2 48.0 mmhg (35.0-45.0) H 07/16/23 16:09 ABG pO2 71.5 mmhg (80-100) L 07/16/23 16:09 ABG O2 Saturation 94 % (90-100) 07/16/23 16:09 Abnormal lab findings: Abnormal Labs 07/16/23 07/16/23 07/16/23 14:35 14:42 16:09 MCV 98.3 H MCHC 31.1 L Plt Count 131 L Neut % (Auto) Eos % (Auto) Neut # (Auto) ABG pCO2 48.0 H ABG pO2 71.5 L ABG HCO3 26.1 H ABG Total CO2 27.6 H VBG pH 7.24 L VBG pCO2 73.6 H VBG pO2 48.0 H VBG HCO3 30.8 H VBG Total CO2 33.1 H VBG O2 Saturation 81.4 H VBG Base Excess 3.4 H Potassium 5.7 H Carbon Dioxide 36 H BUN 24 H Glucose 114 H Troponin I 0.04 H NT-Pro-B Natriuret Pep 2009 H 07/16/23 07/16/23 07/17/23 18:04 21:20 05:47 MCV 95.9 H MCHC Plt Count Neut % (Auto) 83.6 H Eos % (Auto) 0.0 L Neut # (Auto) 8.3 H ABG pCO2 ABG pO2 ABG HCO3 ABG Total CO2 VBG pH VBG pCO2 VBG pO2 VBG HCO3 VBG Total CO2 VBG O2 Saturation VBG Base Excess Potassium Carbon Dioxide BUN 23 H Glucose 134 H Troponin I 0.06 H 0.05 H NT-Pro-B Natriuret Pep Assessment and Plan *Assessment and plan (1) On mechanically assisted ventilation: Status: Acute Category: Medical Code(s): Z99.11 - Dependence on respirator [ventilator] status (2) Acute respiratory failure: Status: Acute Qualifiers: Respiratory failure complication: hypoxia and hypercapnia Qualified Code(s): J96.01 - Acute respiratory failure with hypoxia; J96.02 - Acute respiratory failure with hypercapnia Category: Medical Code(s): J96.00 - Acute respiratory failure, unspecified whether with hypoxia or hypercapnia (3) Pectus excavatum: Status: Acute Category: Medical Code(s): Q67.6 - Pectus excavatum (4) Aspiration pneumonia: Status: Acute Category: Medical Code(s): J69.0 - Pneumonitis due to inhalation of food and vomit Plan Mr. Ferguson is a 72-year-old male with a history of mitral stones status post TAVR, BPH status post pacemaker, A-fib, CHF, no significant smoking history, no prior respiratory complaints at baseline, questionable sleep apnea, presented to the ER with hypoxia and altered mentation intubated for airway protection mechanical ventilatory support and pulmonary was called for further evaluation and management. Upon questioning patient states that he is a never smoker denies any respiratory problems with patient has been progressively getting worse with respect to his worsening altered mentation for the last week prior to his presentation to the ER. CTA upon admission evidence of pulmonary embolism. Aspiration debris in the airways along with left lower lobe atelectasis which is new from prior. Also noted to have bilateral upper lobe patchy groundglass opacities with septal thickening. CT head possible small vessel ischemia and age-related volume loss. Afebrile. No evidence of leukocytosis upon admission. VBG upon admission for hypercarbic respiratory failure, improved postintubation. COVID-19 and flu PCR panel negative. on minimal ventilator settings. # Plan: Continue to sedation with propofol and fentanyl. Will closely watch his mental status. Continue current ventilator settings, PEEP of 5 FiO2 40% rate of 18 and tidal volume of 420. Patient failed SBT today secondary to agitation and low tidal volumes. Also noted intermittent hypoxic episodes during SBT. Change antibiotics to ceftriaxone azithromycin pending culture results for the possible aspiration pneumonia. Abdomen soft distended nontender. Renal function stable. Adequate urine output. Will closely monitor. Lasix 40mg IV once. - Continue mechanical ventilatory support - Continue AnalgoSedation with Propofol and Fentanyl with CPOT gal less than or euqal to 2 and RASS goal of to 2 (No need for deep sedation) - VAP bundle Recommend elevate head of the bed at 30 to 45 degrees Recommend oral care with chlorhexidne Recommend GI ulcer prophylaxis - Famotidine 20mg IV BID Recommend chemical DVT prophylaxis Total critical care time spent on this patient is 35 minutes managing acute hypoxic respiratory failure needing mechanical ventilation. This time spent include reviewing test results including interpreting chest x-rays, labs and arterial blood gas, optimizing the ventilator settings,formulating plan of care, discussing the plan of care with the team and the nursing staff.
--- NOTE | 2023-07-17 10:02 | PC.WOUNDNOTE ---
skin assessment at start of shift.
[2023-07-17] MEDS: ENOXAPARIN 40MG/0.4ML SYRINGE 40 MG SQ (11:47)
--- NOTE | 2023-07-17 12:49 | CA_ITS ---
APPROVED REPORT EXAM: Comprehensive 2D, Doppler, and color-flow Echocardiogram Director Of Patient Financial Services: Ailyn Hua CRT Ht: 5 ft 10 in Wt: 199lbs BSA: 2.08 BP: 147/84 mmHg Indications: MVR september 2016, Pacer, afib,Pectus Excavatum, Intubated TDS poor windows d/t body habitus M-Mode Dimensions LA Diam 4.74 cm (1.9-4.0) LVDd 3.39 cm (3.5-5.7) LVDs 1.49 cm (3.5-5.7) IVSd 1.37 cm (0.6-1.1) PWd 0.38 cm (0.6-1.1) EF (Teich) 87.30% FS 56.00% EDV (Teich) 47.10 mL ESV (Teich) 6.00 mL LV Diastology E Decel Time 360 (160-240 msec) E/A Ratio 1.38 MED A' 5.40 cm/s LAT A' 7.00 cm/s Aortic Valve AO Peak GR. 10.00 mmHg Mitral Valve MV E Max Jefry. 151.0 (40-130 cm/s) MV A Velocity 109.2 (40-130 cm/s) E/A Ratio 1.38 MV Mean Gr. 4.20 (<2mmHg) MV PHT 105.0 ms Pulmonary Valve PV Peak Velocity 91.7 (50-150 cm/s) Tricuspid Valve TR P. Velocity 211.60 cm/s Left Ventricle The left ventricle is normal size. The left ventricular systolic function is hyperdynamic. There is increased LV wall thickness. There is normal LV segmental wall motion. Diastolic function is indeterminate. LVEF is 70%. Right Ventricle The right ventricle is normal size. The right ventricular systolic function is normal. Atria The left atrium size is normal. The right atrium size is normal. There is no Doppler evidence of interatrial shunt. Aortic Valve The aortic valve is mildly thickened. There is no aortic valvular stenosis. No aortic regurgitation is present. Mitral Valve s/p bioprosthetic MVR. The MV leaflets are not well visualized due to technically difficult study, cannot assess leaflet mobility. No evidence of mitral valve stenosis. Mean MV gradient 4 mmHg (HR 65 bpm). Trace mitral regurgitation. Tricuspid Valve The tricuspid valve leaflets are thin and pliable. Trace tricuspid regurgitation. There is insufficient TR jet to estimate RVSP. Pulmonic Valve The pulmonary valve is not well visualized. Trace pulmonic regurgitation. Great Vessels The aortic root is not well visualized. The IVC is not well visualized. Pericardium There is no pericardial effusion. Other Information Study Quality: Technically Difficult Conclusion Technically difficult study in the setting of intubation and mechanical ventilation, as well as presence of pectus excavatum. Hyperdynamic LV systolic function (LVEF 70%). s/p bioprosthetic MVR. Mean MV gradients are acceptable at 4 mmHg (HR 62 bpm). No other significant valvular stenosis or regurgitation. Compared to prior study from 02/18/2023, the transmitral gradients are overall unchanged. Electronically signed by : Ciara Benavidez MD 07/17/2023 15:18:32
--- NOTE | 2023-07-17 12:51 | PC.NURSE ---
sbt from 1030 to 1140. pt sedation increased during sbt per dr michaels recommendations to help reduce anxiety. notified dr michaels at 1140 that pt was noted to be breathing 52 times a minute and tidal volumes were in the 150's. asked if md wanted abg following sbt. per dr michaels change pt back to rate and restart sedation.
--- NOTE | 2023-07-17 14:11 | PC.NURSE ---
late entry: 1218 pt noted to be hypotensive. pt sedation decreased and levophed increased. pt still noted to be hypotensive. pt iv sites reassessed, iv in r ac that levophed infusing noted to not be able to flush, iv site for levophed changed. pt bp noted to improve.
[2023-07-17] MEDS: CEFTRIAXONE SODIUM 2 GM in 0.9 % SODIUM CHLORIDE 100 ML IV ×2 (14:40→23:04)
[2023-07-17] MEDS: FUROSEMIDE 40MG/4ML VIAL 40 MG IV (14:40)
[2023-07-17] MEDS: propofoL 100 ML 17.620000000000001 MG IV (14:43)
--- NOTE | 2023-07-17 14:51 | EXP.CARD.CON ---
History of Present Illness History of Present Illness Consult date: 07/17/23 Requesting physician: Philip Schafer Consult reason: known to you Chief complaint: AMS, history of mitral valve surgery Additional Medical History:: 1. Bioprosthetic mitral valve replacement with Maze procedure, 2017, [facility]. Echo, 02/18/2023, EF 55%, bioprosthetic mitral valve functioning appropriately with mean gradient of 4 mmHg. 2. AICD in situ, implanted 2016 A. History of V. tach noted on downloads, treated with increased beta-fe therapy and 2021 with no further recurrence 3. Paroxysmal A-fib A. Chronic anticoagulation with Eliquis 4. History of congestive heart failure per chart but likely would be HFpEF 5. Diabetes mellitus 6. History of normal coronary arteries in 2017 History of present illness: This is a 72-year-old male with PMHx as noted above who was admitted through the emergency department for evaluation of shortness of breath. Onset was acute, worsening over the last week, acutely worsened since this morning. Patient had significant difficulty breathing. Family at bedside state that he is not a smoker, does not have a history of COPD. He has been speaking intermittently nonsensically, after waking up today they found that he was hypoxic to the 70s which improved after he was roused. He is more somnolent than normal. Patient denies chest pain however is only able to speak in 1-3 word sentences. Admitted for treatment and management Patient noted to have worsening pectus excavatum over the past few years since his cardiac surgery with no plans for repair. Patient has iterated on several occasions that he does not want to have anymore cardiac surgery. [facility] Disclaimer: The information contained in this section may have been updated after the patient was seen, as this information can be updated by other users. Medical History Atrial fibrillation Congestive heart failure HTN (hypertension) Presence of combination internal cardiac defibrillator (ICD) and pacemaker Valvular heart disease Surgical History Hx of tonsillectomy Social History Smoking Status: Never smoker second hand exposure: No alcohol intake: former substance use type: denies use current occupational status: retired Travel in the last 8 weeks: Inside the [place] household members: spouse housing: house current occupational exposures/hazards: No caffeine: No Review of Systems Review of Systems Review of systems:: pertinent systems reviewed and negative unless documented below *Cardiovascular Cardiovascular: Denies chest pain and Reports dyspnea *Respiratory Respiratory: Reports dyspnea *Neurologic Neurologic: Reports as per HPI and Reports abnormal speech Exam Data for Last 24 hours Vital signs and Labs for Last 24 Hours: Temp Pulse Resp BP Pulse Ox O2 Del Method FiO2 99.1 F 61 24 96/56 L 100 Mechanical Ventilation 30 07/17/23 14:00 07/17/23 14:15 07/17/23 14:15 07/17/23 14:15 07/17/23 14:15 07/17/23 14:15 07/17/23 14:15 Laboratory Results - last 24 hr 07/16/23 14:35: WBC 9.7, RBC 4.89, Hgb 15.0, Hct 48.1, MCV 98.3 H, MCH 30.6, MCHC 31.1 L, RDW 15.5, Plt Count 131 L, MPV 9.2, Neut % (Auto) 74.4, Lymph % (Auto) 18.9, [place] % (Auto) 4.9, Eos % (Auto) 1.1, Baso % (Auto) 0.8, Neut # (Auto) 7.2, Lymph # (Auto) 1.8, [place] # (Auto) 0.5, Eos # (Auto) 0.1, Baso # (Auto) 0.1, Sodium 143, Potassium 5.7 H, Chloride 105, Carbon Dioxide 36 H, Anion Gap 7.7, BUN 24 H, Creatinine 1.20, Estimated Creat Clear 68, Estimated GFR 60, Est GFR ( Amer) 72, Glucose 114 H, Lactate 0.9, Calcium 8.5, Total Bilirubin 0.8, AST 30, ALT 19, Alkaline Phosphatase 73, Troponin I 0.04 H, NT-Pro-B Natriuret Pep 2010 H, Total Protein 7.1, Albumin 4.3, Globulin 2.8, Albumin/Globulin Ratio 1.5 07/16/23 14:42: VBG pH 7.24 L, VBG pCO2 73.6 H, VBG pO2 48.0 H, VBG HCO3 30.8 H, VBG Total CO2 33.1 H, VBG O2 Saturation 81.4 H, VBG Base Excess 3.4 H 07/16/23 14:58: VBG Lactic Acid 1.5 07/16/23 16:09: Specimen Source Left radial, O2 % 40, ABG pH 7.35, ABG pCO2 48.0 H, ABG pO2 71.5 L, ABG HCO3 26.1 H, ABG Total CO2 27.6 H, ABG O2 Saturation 94, ABG Base Excess 0.5, [place] Test Patient unable, Vent Rate 24, Tidal Volume 420, PEEP 5 07/16/23 18:04: Troponin I 0.06 H 07/16/23 18:45: SARS-CoV-2 (PCR) Not detected, Influenza A Untype (PCR) Not detected, Influenza Type B (PCR) Not detected 07/16/23 21:20: Troponin I 0.05 H 07/17/23 05:47: WBC 9.9, RBC 4.88, Hgb 14.9, Hct 46.8, MCV 95.9 H, MCH 30.5, MCHC 31.8, RDW 15.6, Plt Count 147, MPV 9.5, Neut % (Auto) 83.6 H, Lymph % (Auto) 11.8, [place] % (Auto) 3.9, Eos % (Auto) 0.0 L, Baso % (Auto) 0.8, Neut # (Auto) 8.3 H, Lymph # (Auto) 1.2, [place] # (Auto) 0.4, Eos # (Auto) 0.0, Baso # (Auto) 0.1, Sodium 140, Potassium 4.5 D, Chloride 107, Carbon Dioxide 24, Anion Gap 13.5, BUN 23 H, Creatinine 1.10, Estimated Creat Clear 80, Estimated GFR 66, Est GFR ( Amer) 80, Glucose 134 H, Calcium 8.6, Magnesium 2.1, Total Bilirubin 1.2, AST 28, ALT 22, Alkaline Phosphatase 79, Total Protein 6.4, Albumin 3.8 D, Globulin 2.6, Albumin/Globulin Ratio 1.5 I & O for Last 24 hours: Intake & Output 07/15/23 07/16/23 07/17/23 07/18/23 11:59 11:59 11:59 11:59 Intake Total 1164.612 / 1164.612 170.946 / 170.946 Output Total 2300 / 2300 100 / 100 Balance -1135.388 / -1135.388 70.946 / 70.946 Weight 199 lb 8 oz 199 lb 7.941 oz Constitutional Comments: Patient is intubated on mechanical ventilation but is easily agitated with light touch *Routine Respiratory Exam Respiratory: Present patient mechanically ventilated *Routine Cardiovascular Exam Cardiovascular: Present RRR; Absent murmur, gallop or rubs *Routine Extremities Exam Extremities: Absent edema Meds Home Medications and Allergies Home Medications Medication Instructions Recorded Confirmed Type apixaban 5 mg tablet (Eliquis) 5 mg PO BID Blood thinner/Afib 06/15/17 07/17/23 History aspirin 81 mg tablet,delayed 81 mg PO DAILY Heart Health 06/15/17 07/17/23 History release (Adult Low Dose Aspirin) furosemide 40 mg tablet (Lasix) 40 mg PO DAILY Fluid 06/15/17 07/17/23 History lisinopril 10 mg tablet 10 mg PO DAILY High Blood Pressure 06/15/17 07/17/23 History allopurinol 100 mg tablet 100 mg PO DAILY Gout 01/10/21 07/17/23 History potassium chloride 20 mEq 20 meq PO DAILY Supplement 08/01/22 07/17/23 History tablet,extended release(part/cryst) ketorolac 0.4 % eye drops 1 drp ophthalmic (eye) Q4H 07/17/23 07/17/23 History metoprolol succinate 100 mg 100 mg PO DAILY High Blood Pressure 07/17/23 07/17/23 History tablet,extended release 24 hr (Toprol XL) ofloxacin 0.3 % eye drops 1 drp ophthalmic (eye) Q4H 07/17/23 07/17/23 History prednisolone acetate 1 % eye 1 drp ophthalmic (eye) Q4H 07/17/23 07/17/23 History drops,suspension New Prescriptions to Start Prescriptions: Allergies Allergy/AdvReac Type Severity Reaction Status Date / Time No Known Allergies Allergy Verified 01/29/23 09:58 Assessment and Plan *Assessment and plan (1) Acute respiratory failure: Status: Acute Qualifiers: Respiratory failure complication: hypoxia and hypercapnia Qualified Code(s): J96.01 - Acute respiratory failure with hypoxia; J96.02 - Acute respiratory failure with hypercapnia Category: Medical Code(s): J96.00 - Acute respiratory failure, unspecified whether with hypoxia or hypercapnia (2) On mechanically assisted ventilation: Status: Acute Category: Medical Code(s): Z99.11 - Dependence on respirator [ventilator] status (3) Lung disease, restrictive: Status: Acute Category: Medical Code(s): J98.4 - Other disorders of lung (4) Pectus excavatum: Status: Acute Category: Medical Code(s): Q67.6 - Pectus excavatum (5) Aspiration pneumonia: Status: Acute Qualifiers: Aspiration pneumonia type: unspecified Laterality: unspecified laterality Lung location: unspecified part of lung Qualified Code(s): J69.0 - Pneumonitis due to inhalation of food and vomit Category: Medical Code(s): J69.0 - Pneumonitis due to inhalation of food and vomit (6) Current use of long term acute care registered nurse anticoagulation: Status: Chronic Category: Medical Code(s): Z79.01 - watermaster (current) use of anticoagulants (7) PAF (paroxysmal atrial fibrillation): Status: Chronic Category: Medical Code(s): I48.0 - Paroxysmal atrial fibrillation (8) History of mitral valve replacement with tissue graft: Status: Chronic Category: Surgical Code(s): Z95.4 - Presence of other heart-valve replacement (9) Automatic implantable cardiac defibrillator in situ: Status: Chronic Category: Medical Code(s): Z95.810 - Presence of automatic (implantable) cardiac defibrillator (10) HTN (hypertension): Status: Chronic Qualifiers: Hypertension type: primary hypertension Qualified Code(s): I10 - Essential (primary) hypertension Category: Medical Code(s): I10 - Essential (primary) hypertension Plan 1. Acute respiratory distress with marked hypoxemia prompting intubation and mechanical ventilation -Pulmonary following -Likely related to restrictive lung disease related to pectus excavatum and prior open heart surgery -Aspiration material noted in the trachea on CTA of the chest this admission 2. History of bioprosthetic mitral valve replacement -Echo shows mitral valve functioning appropriately 3. Paroxysmal atrial fibrillation with history of maze procedure in 2017 -Continue chronic anticoagulation 4. AICD in situ -Recent download on 06/29/2023 without evidence of heart failure 5. History of normal coronary arteries in 2017 6. Hypertension, well-controlled Pulmonary is attempting to wean off of ventilator Recommend resuming metoprolol and Eliquis when able to take oral medications Echo shows EF hyperdynamic at 70%. Bioprosthetic mitral valve functioning appropriately.
[2023-07-17] MEDS: DOXYCYCLINE HYCLATE 100 MG in 0.9 % SODIUM CHLORIDE 250 ML 166.667000000000002 MG IV ×2 (15:12→21:05)
--- NOTE | 2023-07-17 18:16 | EXP.PN ---
Subjective *Date: 07/17/23 *Time: 18:16 Interval history: patient is intubated and sedated, family is at bedside Exam Data for Last 24 hours Vital signs and Labs for Last 24 Hours: Temp Pulse Resp BP Pulse Ox O2 Del Method FiO2 99.0 F 60 24 100/64 L 99 Mechanical Ventilation 30 07/17/23 15:28 07/17/23 17:00 07/17/23 17:00 07/17/23 17:00 07/17/23 17:00 07/17/23 17:00 07/17/23 17:00 Laboratory Results - last 24 hr 07/16/23 18:04: Troponin I 0.06 H 07/16/23 18:45: SARS-CoV-2 (PCR) Not detected, Influenza A Untype (PCR) Not detected, Influenza Type B (PCR) Not detected 07/16/23 21:20: Troponin I 0.05 H 07/17/23 05:47: WBC 9.9, RBC 4.88, Hgb 14.9, Hct 46.8, MCV 95.9 H, MCH 30.5, MCHC 31.8, RDW 15.6, Plt Count 147, MPV 9.5, Neut % (Auto) 83.6 H, Lymph % (Auto) 11.8, [place] % (Auto) 3.9, Eos % (Auto) 0.0 L, Baso % (Auto) 0.8, Neut # (Auto) 8.3 H, Lymph # (Auto) 1.2, [place] # (Auto) 0.4, Eos # (Auto) 0.0, Baso # (Auto) 0.1, Sodium 140, Potassium 4.5 D, Chloride 107, Carbon Dioxide 24, Anion Gap 13.5, BUN 23 H, Creatinine 1.10, Estimated Creat Clear 80, Estimated GFR 66, Est GFR ( Amer) 80, Glucose 134 H, Calcium 8.6, Magnesium 2.1, Total Bilirubin 1.2, AST 28, ALT 22, Alkaline Phosphatase 79, Total Protein 6.4, Albumin 3.8 D, Globulin 2.6, Albumin/Globulin Ratio 1.5 I & O for Last 24 hours: Intake & Output 07/14/23 07/15/23 07/16/23 07/17/23 23:59 23:59 23:59 23:59 Intake Total 6.852 / 495.518 3486.706 / 1769.706 Output Total 125 / 1825 3525 / 3525 Balance -118.148 / -1418.148 -1755.294 / -1755.294 Weight 90.407 kg 90.49 kg Constitutional Comments: intubated and sedated *Routine HEENT Exam Head: Present normocephalic Eye: Present EOMI and PERRL ENT: Present mucous membranes moist *Routine Neck Exam Neck: Present supple; Absent lymphadenopathy *Routine Respiratory Exam Comments: mechanical breathing soudns *Routine Cardiovascular Exam Cardiovascular: Present RRR *Routine Abdominal Exam Abdominal: Present soft and normoactive bowel sounds; Absent tenderness *Routine Extremities Exam Extremities: Absent cyanosis, clubbing or edema *Routine Skin Exam Skin: Present warm; Absent rash *Routine Neurological Exam Comments: intubated and sedated Assessment and Plan *Assessment and plan (1) Acute respiratory failure: Status: Acute Qualifiers: Respiratory failure complication: hypoxia and hypercapnia Qualified Code(s): J96.01 - Acute respiratory failure with hypoxia; J96.02 - Acute respiratory failure with hypercapnia Category: Medical Code(s): J96.00 - Acute respiratory failure, unspecified whether with hypoxia or hypercapnia (2) On mechanically assisted ventilation: Status: Acute Category: Medical Code(s): Z99.11 - Dependence on respirator [ventilator] status (3) Lung disease, restrictive: Status: Acute Category: Medical Code(s): J98.4 - Other disorders of lung (4) Pectus excavatum: Status: Acute Category: Medical Code(s): Q67.6 - Pectus excavatum (5) CHF exacerbation: Status: Acute Qualifiers: Heart failure type: unspecified Qualified Code(s): I50.9 - Heart failure, unspecified Category: Medical Code(s): I50.9 - Heart failure, unspecified (6) HTN (hypertension): Status: Chronic Qualifiers: Hypertension type: primary hypertension Qualified Code(s): I10 - Essential (primary) hypertension Category: Medical Code(s): I10 - Essential (primary) hypertension (7) Congestive heart failure: Status: Chronic Qualifiers: Heart failure type: biventricular Qualified Code(s): I50.82 - Biventricular heart failure Category: Medical Code(s): I50.9 - Heart failure, unspecified (8) History of mitral valve replacement with tissue graft: Status: Chronic Category: Surgical Code(s): Z95.4 - Presence of other heart-valve replacement (9) Automatic implantable cardiac defibrillator in situ: Status: Chronic Category: Medical Code(s): Z95.810 - Presence of automatic (implantable) cardiac defibrillator Plan 72-year-old male with PMHx of aortic stenosis status post TAVR, V-fib status post pacemaker placement, paroxysmal atrial fibrillation, CHF, hypertension who presents emergency department for evaluation of shortness of breath. On arrival, patient seems to be more on respiratory distress, BiPAP was placed, will not progress subsequently intubated. Sedation was started on fentanyl and propofol. Initial lab demonstrated mild elevated troponin therefore CTA of the chest was ordered to rule out any acute causes respiratory failure or PE. Started on vancomycin and cefepime 1 dose given. Findings discussed with ER for admission. Patient seen and evaluated after vent. pulmonology and cardiology are consulted plan as follow: Acute hypoxic and hypercapnic respiratory failure, on mechanical vent: In the setting of restrictive lung disease Pectus excavatum: Sedation by propofol and fentanyl Critical care pulmonology consult - discussed with pulmonary plan to wean off the vent Cardiology consult - rec to resume eliquis when patient can resume oral -CHF exacerbation: History of mitral regurgitation pacemaker in situ TAVR Suspected pulmonary edema: Responding well to IV diuresis. Continue monitor for renal output Cardiology on board Last echo from February 2020 showed preserved ejection Lovenox for DVT prophylaxis. Protonix for GI bleed protection Full code
--- NOTE | 2023-07-17 19:01 | PC.NURSE ---
170 notified mago foreman face to face that pt has had irregular rhythms and ectopy this evening. mago foreman presented with tele strip, no new orders
[2023-07-17] MEDS: PANTOPRAZOLE 40MG VIAL 40 MG IV (21:06)
[2023-07-17] MEDS: MORPHINE 2MG/ML SYRINGE 2 MG IV (22:47)
[2023-07-17] MEDS: FENTANYL CITRATE/PF 1,000 MCG in 0.9 % SODIUM CHLORIDE 80 ML 5 MCG IV (22:49)
[2023-07-17] MEDS: NOREPINEPHRINE BITARTRATE/D5W 8 MG/250 ML PLAST..BAG 7.5 MG IV (23:03)
[2023-07-18] VITALS (47 sets, daily range): BP systolic 73–166; BP diastolic 40–131; PULSE 24–120; RESP 14–58; TEMP 35.8–37.3; O2SAT 95–100; BMI 28.5; BMI 29.0
[2023-07-18] MEDS: propofoL 100 ML 25.1799999999999997 MG IV ×2 (00:33→03:23)
[2023-07-18] MEDS: IPRATROPIUM/ALBUTEROL 3 ML NEB IH ×6 (01:25→21:55)
[2023-07-18] MEDS: MORPHINE 2MG/ML SYRINGE 2 MG IV ×2 (02:04→20:40)
[2023-07-18] MEDS: propofoL 100 ML 20.1400000000000006 MG IV ×2 (06:06→08:40)
[2023-07-18 06:36] LABS: MANUAL DIFFERENTIAL MANUAL DIFFERENTIAL (MANUAL DIFF)
[2023-07-18 06:39] LABS: Basophils # 0.1 K/mm3 (0-0.2); Basophils % 0.6 % (0.1-2.0); Eosinophils # 0.2 K/mm3 (0.0-0.4); Eosinophils % 1.4 % (0.1-12.0); Hematocrit 45.1 % (42.0-52.0); Hemoglobin 14.5 g/dL (14.1-18.0); Lymphocytes # 1.8 K/mm3 (0.7-4.5); Mean Corpuscular HGB Conc 32.1 g/dL (31.8-35.4); Mean Corpuscular Hemoglobin 29.9 pg (27.0-31.2); Mean Platelet Volume 9.4 fl (7.4-10.4); Monocytes # 0.8 K/mm3 (0.1-1.0); Monocytes % 7.1 % (1.7-9.3); Neutrophils # 7.9 K/mm3 (1.8-7.8); Neutrophils % 73.9 % (37.0-80.0); Platelet Count 164 K/mm3 (142-424); Red Blood Count 4.85 M/mm3 (4.60-6.20); Red Cell Distribution Width 15.9 % (11.5-17.5); White Blood Count 10.6 K/mm3 (4.8-10.8)
[2023-07-18 07:03] LABS: Anion Gap 12.3 mEq/L (5-15); Blood Urea Nitrogen 23 mg/dl (9-20); Calcium 8.3 mg/dl (8.4-10.2); Carbon Dioxide 26 mmol/L (22.0-30.0); Chloride 105 mmol/L (98-107); Creatinine Clearance Estimated 73 mL/min (50-200); Estimated Glomerular Filt Rate 60 ml/min (>60); GFR (African American) 72 ML/MIN (>60); Glucose 129 mg/dl (74-100); Potassium 3.3 mmoL/L (3.5-5.1); Sodium 140 mmol/L (136-145)
[2023-07-18 07:13] LABS: Cholesterol 135 mg/dl (140-200); HDL Cholesterol 27 mg/dl (40-60); Triglycerides 310 mg/dl (30-150); VLDL Cholesterol 62 mg/dL (0-40)
[2023-07-18 07:24] LABS: Direct LDL Cholesterol 70.28 mg/dL (100-129)
--- NOTE | 2023-07-18 08:48 | XR_ITS ---
PROCEDURE INFORMATION: Exam: XR Chest Exam date and time: 07/18/2023 9:09 AM Age: 72 years old Clinical indication: Device placement; Ett placement (vent status); Additional info: Intubated/verify placement TECHNIQUE: Imaging protocol: Radiologic exam of the chest. Views: 1 view. COMPARISON: CT ANGIO CHEST PE PROTOCOL 07/16/2023 6:19 PM FINDINGS: Tubes, catheters and devices: The patient is intubated. The endotracheal tube tip is seen approximately 4 cm above the jeannine. Lungs: There is similar appearing left lower lobe infiltrate and effusion. The heart size is not well assessed. Pleural spaces: There is no pneumothorax. Heart/Mediastinum: The patient is status post median sternotomy and cardiac valve replacement. There is an atrial appendage clip again seen. A left chest wall pacemaker is again seen. Bones/joints: See Heart/Mediastinum finding. IMPRESSION: Similar appearing left lower lobe infiltrate and effusion.
--- NOTE | 2023-07-18 08:52 | PC.WOUNDNOTE ---
skin assessment at start of shift
[2023-07-18] MEDS: DOXYCYCLINE HYCLATE 100 MG in 0.9 % SODIUM CHLORIDE 250 ML 166.667000000000002 MG IV ×2 (09:23→21:03)
[2023-07-18] MEDS: ENOXAPARIN 40MG/0.4ML SYRINGE 40 MG SQ (09:27)
[2023-07-18] MEDS: LORazepam 2MG/ML VIAL 2 MG IV (10:48)
[2023-07-18] MEDS: SODIUM CHLORIDE 0.9% 10ML VIAL 10 ML IV ×2 (10:48→20:40)
[2023-07-18 11:11] LABS: Eosinophils % 2 % (0-3); Lymphocytes % 20 % (10-50); Monocytes % 7 % (2-9); Neutrophils % 68 % (42-76); Total Cells Counted 100
[2023-07-18] MEDS: CEFTRIAXONE SODIUM 2 GM in 0.9 % SODIUM CHLORIDE 100 ML IV ×2 (11:12→22:04)
[2023-07-18 11:15] LABS: Platelet Estimate Normal; RBC Morphology Normal
[2023-07-18 11:51] LABS: ABG HCO3 25.7 mmhg (22.0-26.0); ABG Oxygen Saturation 52 % (90-100); ABG PH 7.22 mmol/L (7.35-7.45); ABG TCO2 27.7 mmhg (23-27)
[2023-07-18 11:52] LABS: Allen's Test Patient Unable; Oxygen 25% %; PEEP 5; Source Right Radial
[2023-07-18 11:54] LABS: ABG PCO2 64.4 mmhg (35.0-45.0); ABG PO2 35.3 mmhg (80-100)
--- NOTE | 2023-07-18 12:41 | EXP.EVENT.NO ---
was called by RN the patient family and DPOA wants patient to be extubated. According to the patient's DPOA at the bedside and 3 sisters at the bedside mentioned they do not wish to continue ventilator and they want him to be extubated. According to the patient's DPOA and family patient did not want to be on ventilator for longer period of time. Patient is DNR, patient and family has living will, mentions patient do not want to be resuscitated in case of cardiac arrest. Patient family was informed that patient's pCO2 is high and in the situation he should history intubated but did not mention they verbalized understanding and appreciated the information but want the patient to be extubated regardless. I discussed this in the presence of patient's RN, DPOA and 3 sisters.
--- NOTE | 2023-07-18 13:16 | PC.NURSE ---
1052 all sedation turned off and 2mg ativan admin per IV. SBT began. pt not able to breath on his own. rate turned back on at 1100. pt tolerated AC mode well without sedation. pt again changed to spontaneous at approx 1115, pt noted to be tachypneic in the upper 30's to low 40's. pt tv noted to be in the 150's on his own. pt able to follow commands and take deep breaths when asked, with deep breaths pt tv would reach 200-300. pt noted to have decreased volume capacity at baseline. 1140 Dr Nicholson contacted by Carolina in [place], per md obtain abg and changed to ac mode 1145 abg obtained and pt switched back over to rate. [address] to [address] Nicholson by Carolina, [address] with Dr Nicholson, that during SBT family stated to this RN and [place] in [place] that pt is not tolerating SBT r/t anxiety and they do not wish to put him through this again. pt healthcare surrogate/POA have decided/request that pt be extubated and placed on bipap. family is aware pt is a DNR and family has signed that if pt were to require reintubation that they do not want pt reintubated. notified dr Schafer face to face following conversation between Dr Schafer and Dr Nicholson. Dr Schafer spoke with pt family regarding extubation to bipap at 1230. family verbalized understanding that they were aware that pt could decline following extubation to bipap. MD clarified that pt is a DNR and asked if pt were to require reintubation would that be their wishes. family declined to have pt reintubated. 1245 pt extubated by carolina in [place], Dr Schafer and this RN at bedside with pt POA Ruby Rendon. pt placed on bipap / rr 24 40% fio2
--- NOTE | 2023-07-18 14:56 | PC.NURSE ---
pt currently thrashing in bed in middle of SBT
[2023-07-18] MEDS: KCl 10mEq/100ml 100 ML 100 MEQ IV ×2 (15:41→17:04)
--- NOTE | 2023-07-18 16:10 | PC.NURSE ---
since extubation at 1245 pt has been periodically restless. pt occassionaly pulls on mask and attempts to grab at catheter tubing. pt appears to recognize family present in the room. pt is compliant with requests made of him, he is able to speak with staff and family. lungs are diminished with slight crackles t/o in the left. bowel sounds are active in all quads. nad noted, pt is able to turn himself in the bed.
--- NOTE | 2023-07-18 18:15 | EXP.PN ---
Subjective *Date: 07/18/23 *Time: 18:15 Interval history: patient is intubated and sedated, family is at bedside, seen at 10.30 AM during rounds and again around 12.10 Exam Data for Last 24 hours Vital signs and Labs for Last 24 Hours: Temp Pulse Resp BP Pulse Ox O2 Del Method O2 Flow Rate 98.2 F 78 29 H 95/50 L 100 BiPAP 25 07/18/23 17:00 07/18/23 17:00 07/18/23 17:00 07/18/23 17:00 07/18/23 17:00 07/18/23 17:35 07/18/23 04:00 FiO2 40 07/18/23 17:00 Laboratory Results - last 24 hr 07/18/23 06:29: WBC 10.6, RBC 4.85, Hgb 14.5, Hct 45.1, MCV 93.0, MCH 29.9, MCHC 32.1, RDW 15.9, Plt Count 164, MPV 9.4, Neut % (Auto) 73.9, Lymph % (Auto) 17.0, [place] % (Auto) 7.1, Eos % (Auto) 1.4, Baso % (Auto) 0.6, Neut # (Auto) 7.9 H, Lymph # (Auto) 1.8, [place] # (Auto) 0.8, Eos # (Auto) 0.2, Baso # (Auto) 0.1, Total Counted 100, Neutrophils % (Manual) 68, Band Neutrophils % 3.0, Lymphocytes % (Manual) 20, Monocytes % (Manual) 7, Eosinophils % (Manual) 2, Platelet Estimate Normal, RBC Morphology Normal, Sodium 140, Potassium 3.3 L D, Chloride 105, Carbon Dioxide 26, Anion Gap 12.3, BUN 23 H, Creatinine 1.20, Estimated Creat Clear 73, Estimated GFR 60, Est GFR ( Amer) 72, Glucose 129 H, Calcium 8.3 L, Triglycerides 310 H, Cholesterol 135 L, LDL Cholesterol Direct 70.28 L, VLDL Cholesterol 62 H, HDL Cholesterol 27 L, Cholesterol/HDL Ratio 5.0 H 07/18/23 11:48: Specimen Source Right radial, O2 % 25%, ABG pH 7.22 L*, ABG pCO2 64.4 H, ABG pO2 35.3 L, ABG HCO3 25.7, ABG Total CO2 27.7 H, ABG O2 Saturation 52 L*, ABG Base Excess -2.0, [place] Test Patient unable, PEEP 5 I & O for Last 24 hours: Intake & Output 07/15/23 07/16/23 07/17/23 07/18/23 23:59 23:59 23:59 23:59 Intake Total 6.852 / 871.724 3012.681 / 2263.712 0554.874 / 1859.874 Output Total 125 / 1825 3940 / 3970 475 / 475 Balance -118.148 / -1418.148 -1943.319 / -8367.094 0151.874 / 1384.874 Weight 90.407 kg 90.49 kg 90.46 kg Constitutional Comments: intubated and sedated *Routine HEENT Exam Head: Present normocephalic Eye: Present EOMI and PERRL ENT: Present mucous membranes moist *Routine Neck Exam Neck: Present supple; Absent lymphadenopathy *Routine Respiratory Exam Comments: mechanical breathing soudns *Routine Cardiovascular Exam Cardiovascular: Present RRR *Routine Abdominal Exam Abdominal: Present soft and normoactive bowel sounds; Absent tenderness *Routine Extremities Exam Extremities: Absent cyanosis, clubbing or edema *Routine Skin Exam Skin: Present warm; Absent rash *Routine Neurological Exam Comments: intubated and sedated Assessment and Plan *Assessment and plan (1) Acute respiratory failure: Status: Acute Qualifiers: Respiratory failure complication: hypoxia and hypercapnia Qualified Code(s): J96.01 - Acute respiratory failure with hypoxia; J96.02 - Acute respiratory failure with hypercapnia Category: Medical Code(s): J96.00 - Acute respiratory failure, unspecified whether with hypoxia or hypercapnia (2) On mechanically assisted ventilation: Status: Acute Category: Medical Code(s): Z99.11 - Dependence on respirator [ventilator] status (3) Lung disease, restrictive: Status: Acute Category: Medical Code(s): J98.4 - Other disorders of lung (4) Pectus excavatum: Status: Acute Category: Medical Code(s): Q67.6 - Pectus excavatum (5) CHF exacerbation: Status: Acute Qualifiers: Heart failure type: unspecified Qualified Code(s): I50.9 - Heart failure, unspecified Category: Medical Code(s): I50.9 - Heart failure, unspecified (6) HTN (hypertension): Status: Chronic Qualifiers: Hypertension type: primary hypertension Qualified Code(s): I10 - Essential (primary) hypertension Category: Medical Code(s): I10 - Essential (primary) hypertension (7) Congestive heart failure: Status: Chronic Qualifiers: Heart failure type: biventricular Qualified Code(s): I50.82 - Biventricular heart failure Category: Medical Code(s): I50.9 - Heart failure, unspecified (8) History of mitral valve replacement with tissue graft: Status: Chronic Category: Surgical Code(s): Z95.4 - Presence of other heart-valve replacement (9) Automatic implantable cardiac defibrillator in situ: Status: Chronic Category: Medical Code(s): Z95.810 - Presence of automatic (implantable) cardiac defibrillator Plan 72-year-old male with PMHx of aortic stenosis status post TAVR, V-fib status post pacemaker placement, paroxysmal atrial fibrillation, CHF, hypertension who presents emergency department for evaluation of shortness of breath. On arrival, patient seems to be more on respiratory distress, BiPAP was placed, will not progress subsequently intubated. Sedation was started on fentanyl and propofol. Initial lab demonstrated mild elevated troponin therefore CTA of the chest was ordered to rule out any acute causes respiratory failure or PE. Started on vancomycin and cefepime 1 dose given. Findings discussed with ER for admission. Patient seen and evaluated after vent. pulmonology and cardiology are consulted plan as follow: Acute hypoxic and hypercapnic respiratory failure, on mechanical vent: In the setting of restrictive lung disease Pectus excavatum: Sedation by propofol and fentanyl Critical care pulmonology consult - discussed with pulmonary plan to wean off the vent Cardiology consult - rec to resume eliquis when patient can resume oral -CHF exacerbation: History of mitral regurgitation pacemaker in situ TAVR Suspected pulmonary edema: Responding well to IV diuresis. Continue monitor for renal output Cardiology on board Last echo from February 2020 showed preserved ejection Lovenox for DVT prophylaxis. Protonix for GI bleed protection Full code PCO2 got worse, he seems agitated, and family wants to remove ventilator support, however replenishment analyst recommended to continue ventilator support, patient family, DPOA and living will states patient is DNR
[2023-07-18] MEDS: PANTOPRAZOLE 40MG VIAL 40 MG IV (20:40)
[2023-07-19] VITALS (32 sets, daily range): BP systolic 106–165; BP diastolic 50–101; PULSE 49–137; RESP 22–36; TEMP 36.2–37.3; O2SAT 91–100
[2023-07-19] MEDS: IPRATROPIUM/ALBUTEROL 3 ML NEB IH ×5 (01:49→17:31)
--- NOTE | 2023-07-19 02:49 | PC.NURSE ---
Patient awoke at 0230 requesting to sit on the edge of the bed. Patient asked if he could take the BiPAP off. Documenting RN assisted with taking BiPAP off and patient remained stable on room air-- see 0245 vital check. Patient remains stable at this time without labored breathing. After patient was sitting on the edge of the bed he inquired about his diaz catheter coming out. 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
[2023-07-19 05:16] LABS: MANUAL DIFFERENTIAL MANUAL DIFFERENTIAL (MANUAL DIFF)
[2023-07-19 05:17] LABS: Basophils % 0.5 % (0.1-2.0); Eosinophils # 0.1 K/mm3 (0.0-0.4); Eosinophils % 1.7 % (0.1-12.0); Hematocrit 43.9 % (42.0-52.0); Hemoglobin 13.9 g/dL (14.1-18.0); Lymphocytes # 0.8 K/mm3 (0.7-4.5); Mean Corpuscular HGB Conc 31.6 g/dL (31.8-35.4); Mean Corpuscular Hemoglobin 30.2 pg (27.0-31.2); Mean Corpuscular Volume 95.5 fl (80-94); Mean Platelet Volume 8.7 fl (7.4-10.4); Monocytes # 0.4 K/mm3 (0.1-1.0); Monocytes % 6.1 % (1.7-9.3); Neutrophils # 5.5 K/mm3 (1.8-7.8); Neutrophils % 80.7 % (37.0-80.0); Platelet Count 117 K/mm3 (142-424); Red Blood Count 4.59 M/mm3 (4.60-6.20); Red Cell Distribution Width 15.9 % (11.5-17.5); White Blood Count 6.8 K/mm3 (4.8-10.8)
[2023-07-19 05:25] LABS: Blood Urea Nitrogen 22 mg/dl (9-20); Calcium 8.2 mg/dl (8.4-10.2); Carbon Dioxide 26 mmol/L (22.0-30.0); Chloride 108 mmol/L (98-107); Creatinine Clearance Estimated 89 mL/min (50-200); Estimated Glomerular Filt Rate 74 ml/min (>60); GFR (African American) 89 ML/MIN (>60); Glucose 98 mg/dl (74-100); Potassium 4.1 mmoL/L (3.5-5.1)
[2023-07-19 05:32] LABS: Anion Gap 11.1 mEq/L (5-15); Sodium 141 mmol/L (136-145)
[2023-07-19 05:36] LABS: Lymphocytes % 24 % (10-50); Monocytes % 3 % (2-9); Neutrophils % 73 % (42-76); Platelet Estimate Slight Decrease; Total Cells Counted 100
[2023-07-19 05:37] LABS: RBC Morphology Normal
--- NOTE | 2023-07-19 06:16 | PC.NURSE ---
At 0605 documenting RN went to check on patient sitting in his recliner. RN noted patient to be slightly agitated and questioning why is his mother and sister standing behind his chair. There was no one in the patient's room. Patient was adamant that RN was lying and asked why he was in this [facility]. RN educated patient on his location, that no one was in his room, and that he was safe here in the hospital. Notified GISEL Mi of acute change. Patient NAD at this time. He is currently taking his breathing treatment with MEASURER at chair side. VSS
[2023-07-19] MEDS: ENOXAPARIN 40MG/0.4ML SYRINGE 40 MG SQ (09:14)
[2023-07-19] MEDS: DOXYCYCLINE HYCLATE 100 MG in 0.9 % SODIUM CHLORIDE 250 ML 166.667000000000002 MG IV ×2 (09:14→20:05)
[2023-07-19] MEDS: CEFTRIAXONE SODIUM 2 GM in 0.9 % SODIUM CHLORIDE 100 ML IV ×2 (11:14→23:53)
--- NOTE | 2023-07-19 11:22 | XR_ITS ---
PROCEDURE INFORMATION: Exam: XR Chest Exam date and time: 07/19/2023 12:10 PM Age: 72 years old Clinical indication: Shortness of breath; Additional info: SOB TECHNIQUE: Imaging protocol: Radiologic exam of the chest. Views: 1 view. Total images: 1 COMPARISON: CR XR CHEST PORTABLE 07/18/2023 9:09 AM FINDINGS: Tubes, catheters and devices: A pacemaker device is present, its leads in appropriate position. Lungs: Atelectatic changes noted within both lung bases. Pleural spaces: Unremarkable. No pleural effusion. No pneumothorax. Heart/Mediastinum: Heart demonstrates mild diffuse enlargement. Bones/joints: There is evidence of prior median sternotomy. The thoracic spine demonstrates mild degenerative changes at multiple levels. IMPRESSION: 1. Mild cardiomegaly. 2. Atelectatic changes noted within both lung bases.
--- NOTE | 2023-07-19 11:38 | PC.NURSE ---
pt has been getting up to the restroom with family to void. pt refuses to use urinal to void while in restroom. unable to get accurate measurement of output.
--- NOTE | 2023-07-19 14:29 | PC.NURSE ---
pt off bipap since 1400. pt cognition appears to have improved slightly. issues noted with short term memory . 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 pt ambulated to the restroom with 2 staff members and a walker. gait noted to be slightly unsteady. pt had bedside swallow eval. pt given open cup, no s/s of cough or aspiration, or wet vocal quality. pt given straw with water as well no overt s/s of aspiration or cough noted. but slight change possibly interpreted in vocal quality. pt tolerated applesauce as well with no s/s of cough or aspiration or change in vocal quality.
--- NOTE | 2023-07-19 16:40 | PC.NURSE ---
pt was off of bipap from 1400 til apprxo 1540. pt was noted to become more confused, tired and irritable. family requested bipap be placed back on pt. pt has ambulated to and from the restroom with staff and family periodically this shift. pt needs reminding of appropriate way to walk with walker. pt noted to be unsteady at times. pull alarm in place on chair
[2023-07-19] MEDS: PANTOPRAZOLE 40MG VIAL 40 MG IV (20:05)
[2023-07-19] MEDS: SODIUM CHLORIDE 0.9% 10ML VIAL 10 ML IV (20:05)
--- NOTE | 2023-07-19 21:07 | DIET.NUTRFU ---
start TF if medically feaisble, have been NPO since admit on . pulmocare at 20ml/hr and increase to 55ml/hr to provide 1980kcal, 83gm protein and 1005ml formula water + 120ml W6p=[id number]/day, monitor IVF and propofol and adjust. On 07/16 he received 229ml of propofol providing 251.9kcal. 07/17 recived 430ml or 473kcal. No BM noted, he is on morphine. Labs reviewed
[2023-07-19] MEDS: HALOPERIDOL LACTATE 5 MG/ML VIAL 1 MG IV (21:59)
[2023-07-20] VITALS (16 sets, daily range): BP systolic 100–139; BP diastolic 57–83; PULSE 51–126; RESP 17–29; TEMP 36.7–37.1; O2SAT 93–100; BMI 29.0
[2023-07-20] MEDS: IPRATROPIUM/ALBUTEROL 3 ML NEB IH ×2 (06:18→09:40)
[2023-07-20 06:39] LABS: MANUAL DIFFERENTIAL MANUAL DIFFERENTIAL (MANUAL DIFF)
[2023-07-20 06:44] LABS: Basophils % 0.2 % (0.1-2.0); Eosinophils # 0.2 K/mm3 (0.0-0.4); Eosinophils % 4.1 % (0.1-12.0); Hematocrit 39.9 % (42.0-52.0); Hemoglobin 12.6 g/dL (14.1-18.0); Lymphocytes # 0.7 K/mm3 (0.7-4.5); Lymphocytes % 14.8 % (10-50); Mean Corpuscular HGB Conc 31.5 g/dL (31.8-35.4); Mean Corpuscular Hemoglobin 29.9 pg (27.0-31.2); Mean Corpuscular Volume 94.9 fl (80-94); Monocytes # 0.3 K/mm3 (0.1-1.0); Monocytes % 6.9 % (1.7-9.3); Neutrophils # 3.7 K/mm3 (1.8-7.8); Neutrophils % 74.1 % (37.0-80.0); Platelet Count 100 K/mm3 (142-424); Red Blood Count 4.21 M/mm3 (4.60-6.20); Red Cell Distribution Width 15.7 % (11.5-17.5)
[2023-07-20 07:04] LABS: Blood Urea Nitrogen 18 mg/dl (9-20); Calcium 8.4 mg/dl (8.4-10.2); Carbon Dioxide 29 mmol/L (22.0-30.0); Chloride 108 mmol/L (98-107); Creatinine Clearance Estimated 89 mL/min (50-200); Estimated Glomerular Filt Rate 74 ml/min (>60); GFR (African American) 89 ML/MIN (>60); Glucose 82 mg/dl (74-100); Potassium 3.9 mmoL/L (3.5-5.1)
[2023-07-20 07:13] LABS: Anion Gap 9.9 mEq/L (5-15); Sodium 143 mmol/L (136-145)
--- NOTE | 2023-07-20 07:15 | PC.NURSE ---
PT SLEPT WELL AFTER RECEIVING 1MG HALDOL LAST NIGHT. PT TOLERATED BIPAP WELL W/ SAT IN UPPER 90S. PT AWAKENED EASILY THIS AM AND AMBULATED TO BR TO VOID W/ 1 X ASSIST. AOX2. CALL LIGHT WITHIN REACH.
--- NOTE | 2023-07-20 07:41 | EXP.PHA.PN ---
Subjective *Date: 07/20/23 *Time: 07:41 Medical Exam Vital signs and Labs for Last 24 Hours: Vital Signs Temp Pulse Pulse Resp BP BP Pulse Ox 07/20/23 03:00 94 L 07/20/23 06:21 07/20/23 06:00 69 26 H 132/81 97 07/20/23 06:38 07/20/23 06:18 62 07/20/23 06:18 66 07/20/23 05:00 07/20/23 04:00 24 132/65 99 07/20/23 04:00 67 07/20/23 03:00 07/20/23 02:00 69 27 H 106/57 L 100 07/19/23 20:00 137 H 07/20/23 00:00 126 H 07/20/23 01:00 07/19/23 22:39 07/19/23 21:00 07/20/23 00:00 68 24 100/62 L 100 07/19/23 22:00 74 24 160/64 H 95 07/19/23 20:00 99.1 F 68 22 161/72 H 99 07/19/23 20:00 99 07/19/23 22:00 07/19/23 18:49 07/19/23 18:17 89 07/19/23 18:16 89 07/19/23 18:00 89 24 106/50 L 98 07/19/23 18:00 07/19/23 17:00 59 L 26 H 138/79 100 07/19/23 16:00 60 07/19/23 15:00 60 24 118/77 100 07/19/23 16:00 62 91 L 07/19/23 16:00 96 H 24 132/59 L 100 07/19/23 15:00 07/19/23 15:03 97.2 F L 07/19/23 14:34 72 24 122/57 L 94 L 07/19/23 12:00 70 07/19/23 13:56 77 07/19/23 13:56 81 07/19/23 13:15 76 100 07/19/23 11:00 68 26 H 131/88 100 07/19/23 13:00 07/19/23 13:00 49 L 26 H 110/56 L 100 07/19/23 12:00 64 32 H 145/75 H 99 07/19/23 12:00 64 22 145/75 H 99 07/19/23 11:00 07/19/23 11:15 97.8 F 07/19/23 10:14 07/19/23 09:38 96 07/19/23 09:38 71 07/19/23 09:38 77 07/19/23 10:07 76 36 H 129/91 H 96 07/19/23 09:00 07/19/23 09:00 83 34 H 117/68 93 L 07/19/23 09:00 83 93 L 07/19/23 08:00 70 07/19/23 08:00 84 33 H 135/74 99 07/19/23 07:44 98.4 F O2 Del Method FiO2 07/20/23 03:00 BiPAP 07/20/23 06:21 BiPAP 07/20/23 06:00 BiPAP 40 07/20/23 06:38 35 07/20/23 06:18 07/20/23 06:18 07/20/23 05:00 BiPAP 07/20/23 04:00 BiPAP 40 07/20/23 04:00 07/20/23 03:00 BiPAP 07/20/23 02:00 BiPAP 40 07/19/23 20:00 07/20/23 00:00 07/20/23 01:00 BiPAP 07/19/23 22:39 BiPAP 07/19/23 21:00 Room Air 07/20/23 00:00 BiPAP 40 07/19/23 22:00 Room Air 07/19/23 20:00 Room Air 07/19/23 20:00 Room Air 07/19/23 22:00 40 07/19/23 18:49 Room Air 07/19/23 18:17 07/19/23 18:16 07/19/23 18:00 Room Air 07/19/23 18:00 Room Air 07/19/23 17:00 BiPAP 40 07/19/23 16:00 07/19/23 15:00 BiPAP 40 07/19/23 16:00 BiPAP 40 07/19/23 16:00 BiPAP 40 07/19/23 15:00 BiPAP 07/19/23 15:03 07/19/23 14:34 Room Air 07/19/23 12:00 07/19/23 13:56 07/19/23 13:56 07/19/23 13:15 BiPAP 40 07/19/23 11:00 BiPAP 40 07/19/23 13:00 BiPAP 07/19/23 13:00 BiPAP 40 07/19/23 12:00 BiPAP 40 07/19/23 12:00 BiPAP 40 07/19/23 11:00 BiPAP 07/19/23 11:15 07/19/23 10:14 40 07/19/23 09:38 Room Air 07/19/23 09:38 07/19/23 09:38 07/19/23 10:07 Room Air 07/19/23 09:00 Room Air 07/19/23 09:00 Room Air 07/19/23 09:00 Room Air 07/19/23 08:00 07/19/23 08:00 Room Air 07/19/23 07:44 Intake and Output 07/19/23 07/19/23 07/20/23 15:59 23:59 07:59 Intake Total 350 / 700 0 / 700 350 / 350 Output Total 0 / 120 0 / 120 0 / 0 Balance 350 / 580 0 / 580 350 / 350 Intake: Intake, Oral Amount 0 / 0 0 / 0 Intake, Total IV Amount 350 / 700 350 / 350 Ceftriaxone Sodium 2 gm In 0.9 100 / 200 100 / 100 % Sodium Chloride 100 ml @ 200 mls/hr IV 1100,2300 [facility] Rx#: [id number] Doxycycline Hyclate 100 mg In 0 250 / 500 250 / 250 .9 % Sodium Chloride 250 ml @ 166.667 mls/hr IV Q12 [facility] Rx#: [id number] Output: Output, Urine Amount 0 / 20 0 / 20 0 / 0 Other: Number of Voids 0 Number of Unmeasured Voids 1 1 1 Weight 91.807 kg Patient Weight 07/20/23 23:59 Weight 91.807 kg Laboratory Results - last 24 hr 07/20/23 06:05: WBC 5.0 D, RBC 4.21 L, Hgb 12.6 L, Hct 39.9 L, MCV 94.9 H, MCH 29.9, MCHC 31.5 L, RDW 15.7, Plt Count 100 L, MPV 9.0, Neut % (Auto) 74.1, Lymph % (Auto) 14.8, [place] % (Auto) 6.9, Eos % (Auto) 4.1, Baso % (Auto) 0.2, Neut # (Auto) 3.7, Lymph # (Auto) 0.7, [place] # (Auto) 0.3, Eos # (Auto) 0.2, Baso # (Auto) 0.0, Sodium 143, Potassium 3.9, Chloride 108 H, Carbon Dioxide 29, Anion Gap 9.9, BUN 18, Creatinine 1.00, Estimated Creat Clear 89, Estimated GFR 74, Est GFR ( Amer) 89, Glucose 82, Calcium 8.4 I & O for Labs for Last 24 Hours: Intake & Output 07/17/23 07/18/23 07/19/23 07/20/23 23:59 23:59 23:59 23:59 Intake Total 1995.681 / 4268.119 6366.874 / 2659.874 350 / 700 350 / 350 Output Total 3940 / 3970 580 / 605 120 / 120 0 / 0 Balance -1942.319 / -8269.586 9772.874 / 2053.874 230 / 580 350 / 350 Weight 90.49 kg 91.807 kg 91.807 kg Microbiology Reports for the Last 24 Hours: Microbiology 07/16/23 15:18 Sputum - Endotracheal Tube Aspirate Gram Stain - Final The patient's infection will respond to the chosen ABx?: Yes Is the patient receiving the right drug, dose, and route?: Yes Could a more targeted ABx be ordered?: No (EMPIRIC THERAPY, CULTURES PENDING)
[2023-07-20] MEDS: DOXYCYCLINE HYCLATE 100 MG in 0.9 % SODIUM CHLORIDE 250 ML 166.667000000000002 MG IV (09:00)
[2023-07-20] MEDS: ENOXAPARIN 40MG/0.4ML SYRINGE 40 MG SQ (09:01)
--- NOTE | 2023-07-20 09:41 | P.PN_ITS ---
Subjective *Date: 07/19/23 *Time: 09:41 Interval history: seen at bedside, patient is alert active and family is at bedside Exam Data for Last 24 hours Vital signs and Labs for Last 24 Hours: Temp Pulse Resp BP Pulse Ox O2 Del Method O2 Flow Rate 98.5 F 90 27 H 139/66 93 L BiPAP 25 07/20/23 07:52 07/20/23 08:00 07/20/23 07:52 07/20/23 07:52 07/20/23 07:52 07/20/23 09:00 07/18/23 04:00 FiO2 35 07/20/23 06:38 Laboratory Results - last 24 hr 07/20/23 06:05: WBC 5.0 D, RBC 4.21 L, Hgb 12.6 L, Hct 39.9 L, MCV 94.9 H, MCH 29.9, MCHC 31.5 L, RDW 15.7, Plt Count 100 L, MPV 9.0, Neut % (Auto) 74.1, Lymph % (Auto) 14.8, [place] % (Auto) 6.9, Eos % (Auto) 4.1, Baso % (Auto) 0.2, Neut # (Auto) 3.7, Lymph # (Auto) 0.7, [place] # (Auto) 0.3, Eos # (Auto) 0.2, Baso # (Auto) 0.0, Sodium 143, Potassium 3.9, Chloride 108 H, Carbon Dioxide 29, Anion Gap 9.9, BUN 18, Creatinine 1.00, Estimated Creat Clear 89, Estimated GFR 74, Est GFR ( Amer) 89, Glucose 82, Calcium 8.4 I & O for Last 24 hours: Intake & Output 07/17/23 07/18/23 07/19/23 07/20/23 23:59 23:59 23:59 23:59 Intake Total 1995.681 / 3996.561 5017.874 / 2659.874 350 / 700 350 / 350 Output Total 3940 / 3970 580 / 605 120 / 120 0 / 0 Balance -194.319 / -2762.465 6499.874 / 2053.874 230 / 580 350 / 350 Weight 90.49 kg 91.807 kg 91.807 kg Microbiology Reports for the Last 24 Hours: Microbiology 07/16/23 15:18 Sputum - Endotracheal Tube Aspirate Gram Stain - Final Constitutional Constitutional: moderate distress and cooperative *Routine HEENT Exam Head: Present normocephalic Eye: Present EOMI and PERRL ENT: Present mucous membranes moist *Routine Neck Exam Neck: Present supple; Absent lymphadenopathy *Routine Respiratory Exam Respiratory: Present decreased breath sounds Comments: mechanical breathing soudns *Routine Cardiovascular Exam Cardiovascular: Present RRR *Routine Abdominal Exam Abdominal: Present soft and normoactive bowel sounds; Absent tenderness *Routine Extremities Exam Extremities: Absent cyanosis, clubbing or edema *Routine Skin Exam Skin: Present warm; Absent rash *Routine Neurological Exam Neurological: Present alert and oriented X3 Assessment and Plan *Assessment and plan (1) Acute respiratory failure: Status: Acute Qualifiers: Respiratory failure complication: hypoxia and hypercapnia Qualified Code(s): J96.01 - Acute respiratory failure with hypoxia; J96.02 - Acute respiratory failure with hypercapnia Category: Medical Code(s): J96.00 - Acute respiratory failure, unspecified whether with hypoxia or hyperca pnia (2) On mechanically assisted ventilation: Status: Acute Category: Medical Code(s): Z99.11 - Dependence on respirator [ventilator] status (3) Lung disease, restrictive: Status: Acute Category: Medical Code(s): J98.4 - Other disorders of lung (4) Pectus excavatum: Status: Acute Category: Medical Code(s): Q67.6 - Pectus excavatum (5) CHF exacerbation: Status: Acute Qualifiers: Heart failure type: unspecified Qualified Code(s): I50.9 - Heart failure, unspecified Category: Medical Code(s): I50.9 - Heart failure, unspecified (6) HTN (hypertension): Status: Chronic Qualifiers: Hypertension type: primary hypertension Qualified Code(s): I10 - Essential (primary) hypertension Category: Medical Code(s): I10 - Essential (primary) hypertension (7) Congestive heart failure: Status: Chronic Qualifiers: Heart failure type: biventricular Qualified Code(s): I50.82 - Biventricular heart failure Category: Medical Code(s): I50.9 - Heart failure, unspecified (8) History of mitral valve replacement with tissue graft: Status: Chronic Category: Surgical Code(s): Z95.4 - Presence of other heart-valve replacement (9) Automatic implantable cardiac defibrillator in situ: Status: Chronic Category: Medical Code(s): Z95.810 - Presence of automatic (implantable) cardiac defibrillator Plan 72-year-old male with PMHx of aortic stenosis status post TAVR, V-fib status post pacemaker placement, paroxysmal atrial fibrillation, CHF, hypertension who presents emergency department for evaluation of shortness of breath. On arrival, patient seems to be more on respiratory distress, BiPAP was placed, will not progress subsequently intubated. Sedation was started on fentanyl and propofol. Initial lab demonstrated mild elevated troponin therefore CTA of the chest was ordered to rule out any acute causes respiratory failure or PE. Started on vancomycin and cefepime 1 dose given. Findings discussed with ER for admission. Patient seen and evaluated after vent. pulmonology and cardiology are consulted plan as follow: Acute hypoxic and hypercapnic respiratory failure, on BIPAP In the setting of restrictive lung disease Pectus excavatum: Critical care pulmonology consult - continue on BIPAP and wean off Cardiology consult - rec to resume eliquis when patient can resume oral -CHF exacerbation: History of mitral regurgitation pacemaker in situ TAVR Suspected pulmonary edema: Responding well to IV diuresis. Continue monitor for renal output Cardiology on board Last echo from February 2020 showed preserved ejection Lovenox for DVT prophylaxis. Protonix for GI bleed protection Full code Patient family requesting patient to take home when stable, plan is to wean off O2 needs
--- NOTE | 2023-07-20 10:00 | XR_ITS ---
FINAL REPORT TECHNIQUE: Single view chest CLINICAL HISTORY: SOB COMPARISON: 07/19/2023 FINDINGS: A single view of the chest was obtained. The heart and mediastinum are within normal limits. Patient is status post median sternotomy. A left subclavian pacemaker is in place. There are persistent bibasilar opacities, favor atelectasis over pneumonia. There is no pneumothorax. Osseous structures are unremarkable. IMPRESSION: Persistent bibasilar opacities, favor atelectasis over pneumonia. Reviewed, Interpreted and Dictated by Javad Alexandre III, MD Transcribed by Nandini Chen Authenticated and . [facility]
--- NOTE | 2023-07-20 10:06 | P.PN_ITS ---
Subjective *Date: 07/20/23 *Time: 11:44 Interval history: Patient denies any new respiratory complaints but admits significant improvement in symptoms. Not clear what happened prior to his admission. Pulmonology Exam Inpatient Vital signs and Labs for Last 24 Hours: Temp Pulse Resp BP Pulse Ox O2 Del Method O2 Flow Rate 98.5 F 90 27 H 139/66 93 L BiPAP 25 07/20/23 07:52 07/20/23 08:00 07/20/23 07:52 07/20/23 07:52 07/20/23 07:52 07/20/23 09:00 07/18/23 04:00 FiO2 35 07/20/23 06:38 Laboratory Results - last 24 hr 07/20/23 06:05: WBC 5.0 D, RBC 4.21 L, Hgb 12.6 L, Hct 39.9 L, MCV 94.9 H, MCH 29.9, MCHC 31.5 L, RDW 15.7, Plt Count 100 L, MPV 9.0, Neut % (Auto) 74.1, Lymph % (Auto) 14.8, [place] % (Auto) 6.9, Eos % (Auto) 4.1, Baso % (Auto) 0.2, Neut # (Auto) 3.7, Lymph # (Auto) 0.7, [place] # (Auto) 0.3, Eos # (Auto) 0.2, Baso # (Auto) 0.0, Sodium 143, Potassium 3.9, Chloride 108 H, Carbon Dioxide 29, Anion Gap 9.9, BUN 18, Creatinine 1.00, Estimated Creat Clear 89, Estimated GFR 74, Est GFR ( Amer) 89, Glucose 82, Calcium 8.4 I & O for Labs for Last 24 Hours: Intake & Output 07/17/23 07/18/23 07/19/23 07/20/23 23:59 23:59 23:59 23:59 Intake Total 1995.681 / 7025.797 4036.874 / 2659.874 350 / 700 350 / 350 Output Total 3940 / 3970 580 / 605 120 / 120 0 / 0 Balance -194.319 / -3331.908 1839.874 / 2053.4 230 / 580 350 / 350 Weight 199 lb 7.941 oz 202 lb 6.4 oz 202 lb 6.396 oz Microbiology Reports for the Last 24 Hours: Microbiology 07/16/23 15:18 Sputum - Endotracheal Tube Aspirate Gram Stain - Final Constitutional: Present mild distress Head: Present normocephalic and atraumatic ENT: Present normal exam, normal oropharynx and mucous membranes moist Neck: Present normal inspection and full ROM Respiratory: Present respiratory distress and able to speak in complete sentences; Absent wheezes, crackles or diminished air movement Cardiac: Present S1/S2, Tachycardia and radial pulses present GI: Present soft and distention; Absent tenderness or guarding Skin: Present intact; Absent cyanosis or jaundice Neuro: Present alert, awake and oriented x 3 Extremities: Present normal inspection; Absent clubbing or cyanosis Psychiatric: Present normal affect and cooperative Assessment and Plan *Assessment and plan (1) Acute respiratory failure: Status: Acute Qualifiers: Respiratory failure complication: hypoxia and hypercapnia Qualified Code(s): J96.01 - Acute respiratory failure with hypoxia; J96.02 - Acute respiratory failure with hypercapnia Category: Medical Code(s): J96.00 - Acute respiratory failure, unspecified whether with hypoxia or hypercapnia (2) Pectus excavatum: Status: Acute Category: Medical Code(s): Q67.6 - Pectus excavatum (3) Aspiration pneumonia: Status: Acute Qualifiers: Aspiration pneumonia type: unspecified Laterality: unspecified laterality Lung location: unspecified part of lung Qualified Code(s): J69.0 - Pneumonitis due to inhalation of food and vomit Category: Medical Code(s): J69.0 - Pneumonitis due to inhalation of food and vomit Plan Mr. Ferguson is a 72-year-old male with a history of mitral stones status post TAVR, BPH status post pacemaker, A-fib, CHF, no significant smoking history, no prior respiratory complaints at baseline, questionable sleep apnea, presented to the ER with hypoxia and altered mentation intubated for airway protection mechanical ventilatory support and pulmonary was called for further evaluation and management. Upon questioning patient states that he is a never smoker denies any respiratory problems with patient has been progressively getting worse with respect to his worsening altered mentation for the last week prior to his presentation to the ER. CTA upon admission evidence of pulmonary embolism. Aspiration debris in the airways along with left lower lobe atelectasis which is new from prior. Also noted to have bilateral upper lobe patchy groundglass opacities with septal thickening. CT head possible small vessel ischemia and age-related volume loss. Afebrile. No evidence of leukocytosis upon admission. VBG upon admission for hypercarbic respiratory failure, improved postintubation. COVID-19 and flu PCR panel negative. on minimal ventilator settings. Interval update: Patient failed SBT over the weekend secondary to low tidal volumes tachypnea and agitation. The family made a plan to extubate the patient to BiPAP and signed a DNR order not to reintubate the patient again. ABG prior to extubation is concerning for worsening hypercarbic respiratory failure family discussed the results and the still would like to proceed with extubation patient was extubated to BiPAP. Continue to receive ceftriaxone azithromycin. Afebrile. No evidence of leukocytosis. Blood admission pending. Tracheal aspirate no WBCs seen. Chest x-ray from 07/19/2023 stable with no acute worsening. On examination this morning patient does not appear to be in any severe respiratory distress. Weaned from BiPAP to room air with saturations maintained at 95% able. No significant wheezing noted on auscultation. Discussed with the patient's , he was recent diagnosed with severe sleep apnea, awaiting polysomnography result. Plan: Wean antibiotic levofloxacin to complete total of 5-day course, can be weaned to oral upon discharge. Continue DuoNebs every 6 hours on as-needed basis Follow with polysomnography testing inpatient and likely noninvasive ventilatory therapy upon discharge. Continue BiPAP therapy at night at current settings 05/06 with a rate of 22 on FiO2 of 25% # Thank you for involving pulmonary in this patient care. Will continue to follow.
[2023-07-20 10:19] LABS: Eosinophils % 6 % (0-3); Lymphocytes % 19 % (10-50); Monocytes % 7 % (2-9); Neutrophils % 68 % (42-76); Platelet Estimate Slight Decrease; RBC Morphology Normal; Total Cells Counted 100
[2023-07-20] MEDS: CEFTRIAXONE SODIUM 2 GM in 0.9 % SODIUM CHLORIDE 100 ML IV (10:26)
[2023-07-20 10:38] LABS: NT Pro Brain Natriuretic Pep. 828 pg/mL (0-125)
--- NOTE | 2023-07-20 11:26 | HMH.OTEV ---
OT Inpatient Evaluation Rehab OT IP Evaluation Start: 07/20/23 10:37 Freq: ONCE Status: Active Protocol: Document 07/20/23 11:21 [facility] (Rec: 07/20/23 11:26 [facility] [id number]) Rehab OT IP Assessment Subjective History Pt oriented x 2 on arrival. Pt agreeable to engage in therapy evaluation. Pt admitted on 07/16/23 due to CHF and respiratory failure. This is a 72-year-old male with PMHx of aortic stenosis status post TAVR, V-fib status post pacemaker placement, paroxysmal atrial fibrillation , CHF, hypertension who presents emergency department for evaluation of shortness of breath. Onset was acute, worsening over the last week, acutely worsened since this morning. Patient had significant difficulty breathing. Family at bedside state that he is not a smoker, does not have a history of COPD. He has been speaking intermittently nonsensically, after waking up today they found that he was hypoxic to the 70s which improved after he was roused. He is more somnolent than normal. Patient denies chest pain however is only able to speak in 1-3 word sentences. Admitted for treatment and management Subjective I feel better than I did. Prior to being in the hospital , pt lived at home with his . Pt claims normally he is independent with all ADLs and IADLS. Pt also still drives. He does not use any type of AE during functional mobility. Objective Patient Orientation Person,Birthday Right Upper Extremity Gross ROM WFL Left Upper Extremity Gross ROM WFL Bed Mobility bed mobility-scooting,bed mobility - supine/sit Assist Level Contact Guard/Hand Hold Transfer Training Sit/Stand Transfer Assist Level Contact Guard/Hand Hold Chair Transfer Ability Supervision/Stand by Chair Transfer Technique Sit to/from Ambulatory Chair Transfer Assistive Devices Rolling Walker Lower Body Dressing Ability Minimal Assistance Performing Toilet Hygiene Ability Contact Guard Overall Commode/Toilet Transfer Ability Contact Guard Commode/Toilet Transfer Technique Sit to/from Ambulatory Commode/Toilet Transfer Assistive Grab Bars Devices Rehab OT IP prob,goals,plan Problems Date of Evaluation: 07/20/23 OT IP Problems Bed Mobility,Transfers,Balance ,Self care,Safety Rehab Potential Rehab Potential Good Equipment Needs Assistive Devices Rolling / Wheeled Walker Plan OT intervention Plan Bed Mobility,Transfers,Balance ,Self care,Safety,Therapeutic Exercise OT Plan Frequency Daily Duration LOS Discharge Goals Bed Mobility Ability Standby Assistance Sit to Stand Chair Transfer Ability Supervision/Stand by Chair Transfer Ability Supervision/Stand by Chair Transfer Technique Sit to/from Ambulatory Chair Transfer Assistive Devices Rolling Walker Feeding Ability Assist with Tray Set Up Lower Body Dressing Ability Contact Guard Upper Body Dressing Ability Standby Assistance Bathing Ability Minimal Assistance Performing Toilet Hygiene Ability Standby Assistance Overall Commode/Toilet Transfer Ability Standby Assistance Commode/Toilet Transfer Technique Sit to/from Ambulatory Commode/Toilet Transfer Assistive Grab Bars Devices Oral Care Assist Standby Assistance Decrease in Endurance Yes Discharge Plan OT Discharge Plan Pt will continue to be seen for OT services while at [facility]. Pt can return home with his once he is medically stable per physician. Therapist recommends OT evaluation upon returning home . Eval Complexity Eval Charge Codes 15095 - Moderate Complexity PHYSICIAN CERTIFICATION: I certify the specified therapy services for Apolinar Ferguson are required, authorized, and reviewed every 30 days.
--- NOTE | 2023-07-20 12:07 | HMH.PTEV ---
Physical Therapy Evaluation Rehab PT IP Evaluation Start: 07/20/23 10:37 Freq: ONCE Status: Active Protocol: Document 07/20/23 12:02 [facility] (Rec: 07/20/23 12:07 [facility] [email or web address]) Subjective/History History History Per H&P: This is a 72-year-old male with PMHx of aortic stenosis status post TAVR, V-fib status post pacemaker placement, paroxysmal atrial fibrillation , CHF, hypertension who presents emergency department for evaluation of shortness of breath. Onset was acute, worsening over the last week, acutely worsened since this morning. Patient had significant difficulty breathing. Family at bedside state that he is not a smoker, does not have a history of COPD. He has been speaking intermittently nonsensically, after waking up today they found that he was hypoxic to the 70s which improved after he was roused. He is more somnolent than normal. Patient denies chest pain however is only able to speak in 1-3 word sentences. Admitted for treatment and management Subjective Subjective PLOF per pt report: Lives in single story home with . 1STE home. IND with ADLs and functional mobility without AD use. Driving prior to admission. New diagnosis of cancer in past 12 No months? Rehab PT IP Eval Objective Appearance Patient Behavior Appropriate Patient Orientation Person,Place Difficulty following instructions none Speech Pattern Clear Ambulation Patient Able to Ambulate Yes Ambulation Observation IP General Gait Pattern Observation Wide Based Gait Ambulation Distance (feet) 30 Ambulation Assistive Device Rolling Walker Ambulation Ability Contact Guard/Hand Hold Balance Ability to Arise Able, w/o using arms Sitting Balance Steady, safe Standing Balance Steady, wide stance Transfers Bed Transfer Ability Contact Guard/Hand Hold Sit to Stand Bed Transfer Ability Contact Guard/Hand Hold Rehab PT IP prob,goals,plan Problems Date of Evaluation: 07/20/23 PT IP Problems Transfers,Gait,Balance,Self care,Safety Rehab Potential Rehab Potential Good Equipment Needs Assistive Devices Rolling / Wheeled Walker Plan PT Intervention Plan Bed Mobility,Transfers,Gait, Balance,Safety,Therapeutic Exercise Other Intervention Plan 1-2 times PT Plan Frequency Daily Duration LOS Discharge Goals Bed Transfer Ability Supervision/Stand by Sit to Stand Chair Transfer Ability Supervision/Stand by Ambulation Assistive Device Rolling Walker Ambulation Distance (feet) 50 Discharge Plan PT Discharge Plan Pt safe to d/c home when deemed medically necessary d/t current level of mobility, home set-up, and family support. Recommending HH services to address deficits. Recommending pt use RW for all ambulation tasks upon d/c. Pt would benefit from skilled PT while at [facility] to prevent further functional decline and maximize safety with mobility . Eval Complexity Eval Charge Codes 69536 - High Complexity PHYSICIAN CERTIFICATION: I certify the specified therapy services for Apolinar Ferguson are required, authorized, and reviewed every 30 days.
[2023-07-20] MEDS: LEVOFLOXACIN/D5W 750 MG/150 ML 750 MG/150 ML PIGGYBACK 100 MG IV (12:53)
--- NOTE | 2023-07-20 16:38 | EXP.CARD.PN ---
Subjective Subjective Date: 07/20/23 Time: 13:00 Principal diagnosis: AFib, Resp failure Interval history: The patient is now extubated and using a BiPAP at night. Today he states that he is feeling much better. He denies any chest pain or pressure. He denies any shortness of breath. He denies any lower extremity edema. He denies any fever, chills, nausea, vomiting, diarrhea, PND orthopnea. The patient states that he is eager to go home. Exam Data for Last 24 hours Vital signs and Labs for Last 24 Hours: Temp Pulse Resp BP Pulse Ox O2 Del Method O2 Flow Rate 98.8 F 80 17 129/83 96 Room Air 25 07/20/23 16:00 07/20/23 12:00 07/20/23 11:48 07/20/23 11:48 07/20/23 11:48 07/20/23 15:00 07/18/23 04:00 FiO2 35 07/20/23 06:38 Laboratory Results - last 24 hr 07/20/23 06:05: WBC 5.0 D, RBC 4.21 L, Hgb 12.6 L, Hct 39.9 L, MCV 94.9 H, MCH 29.9, MCHC 31.5 L, RDW 15.7, Plt Count 100 L, MPV 9.0, Neut % (Auto) 74.1, Lymph % (Auto) 14.8, [place] % (Auto) 6.9, Eos % (Auto) 4.1, Baso % (Auto) 0.2, Neut # (Auto) 3.7, Lymph # (Auto) 0.7, [place] # (Auto) 0.3, Eos # (Auto) 0.2, Baso # (Auto) 0.0, Total Counted 100, Neutrophils % (Manual) 68, Lymphocytes % (Manual) 19, Monocytes % (Manual) 7, Eosinophils % (Manual) 6 H, Platelet Estimate Slight decrease, RBC Morphology Normal, Sodium 143, Potassium 3.9, Chloride 108 H, Carbon Dioxide 29, Anion Gap 9.9, BUN 18, Creatinine 1.00, Estimated Creat Clear 89, Estimated GFR 74, Est GFR ( Amer) 89, Glucose 82, Calcium 8.4, NT-Pro-B Natriuret Pep 828 H I & O for Last 24 hours: Intake & Output 07/17/23 07/18/23 07/19/23 07/20/23 23:59 23:59 23:59 23:59 Intake Total 1995.681 / 7901.360 6608.874 / 2659.874 350 / 700 620 / 620 Output Total 3940 / 3970 580 / 605 120 / 120 0 / 0 Balance -1943.319 / -8255.204 1487.874 / 2054.874 230 / 580 620 / 620 Weight 199 lb 7.941 oz 202 lb 6.4 oz 202 lb 6.396 oz Microbiology Reports for the Last 24 Hours: Microbiology 07/16/23 15:18 Sputum - Endotracheal Tube Aspirate Gram Stain - Final 07/16/23 15:18 Sputum - Endotracheal Tube Aspirate Sputum Culture - Preliminary 07/16/23 19:15 Blood Blood Culture - Preliminary 07/16/23 19:53 Blood Blood Culture - Preliminary Constitutional Constitutional: no acute distress and average body habitus *Routine HEENT Exam Head: Present normocephalic and atraumatic ENT: Present mucous membranes moist *Routine Neck Exam Neck: Present supple, full ROM and normal carotid upstroke; Absent JVD, carotid bruit or lymphadenopathy *Routine Respiratory Exam Respiratory: Present CTA bilaterally, normal respiratory effort, able to speak in complete sentences and symmetric chest movement *Routine Cardiovascular Exam Cardiovascular: Present RRR, Normal S1 and Normal S2; Absent murmur or gallop *Routine Abdominal Exam Abdominal: Present soft and normoactive bowel sounds; Absent tenderness, distended or organomegaly *Routine Extremities Exam Extremities: Present full ROM, pulses intact and normal capillary refill; Absent cyanosis, clubbing or edema *Routine Skin Exam Skin: Present intact and warm; Absent erythema *Routine Neurological Exam Neurological: Present alert, oriented X3 and CN II-XII intact; Absent sensory deficit or motor deficit Routine Psychiatric Exam Psychiatric: Present normal affect Progress Note: A&P Assessment and plan (1) Acute respiratory failure: Status: Acute (2) Pectus excavatum: Status: Acute (3) Aspiration pneumonia: Status: Acute (4) HTN (hypertension): Status: Chronic (5) Atrial fibrillation: Status: Chronic (6) Current use of buttermaker continuous churn anticoagulation: Status: Chronic (7) Automatic implantable cardiac defibrillator in situ: Status: Chronic Assessment and Plan Assessment and Plan for All Diagnoses:: Plan: 1. The patient was admitted for acute respiratory failure with hypoxemia. He was initially intubated and on mechanical ventilation. He has been extubated and is using a BiPAP at night. The patient is tolerating this well. 2. The patient's family does report some confusion this morning but his mental status is normal during my examination today during our evaluation. 3. The patient does have a history of a bioprosthetic mitral valve which is functioning normally. 4. The patient does have paroxysmal atrial fibrillation status post Maze procedure in 2017. On chronic anticoagulation with Eliquis but is currently getting Lovenox injections. 5. His blood pressure is well-controlled. 6. His LDL goal is less than 100. 7. He is status post AICD placement. His ejection fraction has improved and is now 70. 8. Will restart Toprol at 50 mg p.o. daily due to his paroxysmal atrial fibrillation. 9. Will restart Lasix 40 mg p.o. daily to keep him out of pulmonary edema. 10. Consider restarting low-dose lisinopril tomorrow if his blood pressure tolerates. 11. Further recommendations were made pending the patient's response to treatment Thank you for the opportunity to participate in the care of this patient. All recommendations and orders are per Dr. Benavidez.
--- NOTE | 2023-07-20 17:01 | PC.NURSE ---
Pt has been alert and oriented x3. Lungs clear but diminished t/o. He remains on RA with O2 sats measuring >92%. Pt to use bipap when sleeping per MD. He's been up to the chair the majority of the shift. He's ambulated to the bathroom with a walker and assist x1 and tolerating well. He's paced on tele. Family has been at bedside. No questions or concerns at this time.
[2023-07-20] MEDS: ASPIRIN EC 81MG TABLET 81 MG PO (18:28)
[2023-07-20] MEDS: FUROSEMIDE 40 MG TABLET PO (18:28)
[2023-07-20] MEDS: METOPROLOL SUCCINATE XL 50MG TABLET 50 MG PO (18:28)
[2023-07-20] MEDS: PANTOPRAZOLE 40MG VIAL 40 MG IV (21:35)
[2023-07-21] VITALS: BP 128/64; PULSE 54; PULSE 71; RESP 18; TEMP 36.9; O2SAT 94
[2023-07-21 01:45] VITALS: RESP 24; RESP 26
[2023-07-21 04:00] VITALS: BP 129/82; PULSE 56; PULSE 69; RESP 18; TEMP 36.9; O2SAT 93; BMI 29.5
--- NOTE | 2023-07-21 07:46 | EXP.DC.SUM ---
General Admission date:: 07/16/23 Discharge date: 07/21/23 HPI HPI HPI: This is a 72-year-old male with PMHx of aortic stenosis status post TAVR, V-fib status post pacemaker placement, paroxysmal atrial fibrillation, CHF, hypertension who presents emergency department for evaluation of shortness of breath. Onset was acute, worsening over the last week, acutely worsened since this morning. Patient had significant difficulty breathing. Family at bedside state that he is not a smoker, does not have a history of COPD. He has been speaking intermittently nonsensically, after waking up today they found that he was hypoxic to the 70s which improved after he was roused. He is more somnolent than normal. Patient denies chest pain however is only able to speak in 1-3 word sentences. Admitted for treatment and management Hospital Course Hospital Course Hospital Course: 72-year-old male with PMHx of aortic stenosis status post TAVR, V-fib status post pacemaker placement, paroxysmal atrial fibrillation, CHF, hypertension who presents emergency department for evaluation of shortness of breath. On arrival, patient seems to be more on respiratory distress, BiPAP was placed, will not progress subsequently intubated. Sedation was started on fentanyl and propofol. Initial lab demonstrated mild elevated troponin therefore CTA of the chest was ordered to rule out any acute causes respiratory failure or PE. Started on vancomycin and cefepime 1 dose given. Findings discussed with ER for admission. Patient seen and evaluated after vent. pulmonology and cardiology are consulted plan as follow: Acute hypoxic and hypercapnic respiratory failure, on BIPAP In the setting of restrictive lung disease Pectus excavatum: Critical care pulmonology consult - continue on BIPAP and wean off Cardiology consult - rec to resume eliquis when patient can resume oral -CHF exacerbation: History of mitral regurgitation pacemaker in situ TAVR Suspected pulmonary edema: Responding well to IV diuresis. Continue monitor for renal output Cardiology on board Last echo from February 2020 showed preserved ejection Plan: Wean antibiotic levofloxacin to complete total of 5-day course, can be weaned to oral upon discharge. Continue DuoNebs every 6 hours on as-needed basis # Polysomnography testing results reviewed, patient with severe sleep apnea with AHI of 21.9. Along with sleep and the patient is also having chest wall restriction given his pectus excavatum leading to restrictive lung disease and hypercarbic respiratory failure. He would best benefit from BiPAP therapy at this point of time. Patient can be discharged home on BiPAP therapy at night at current settings 05/06 with a rate of 22 on FiO2 of 25%. He has been using BiPAP therapy at the current settings. Tolerating well. Patient failed trial of CPAP. Total time spent on discharge 34 minutes in counseling, discussion with cardiology and pulmonology, documentation, chart review, and direct care with patient. Exam Data for Last 24 hours Vital signs and Labs for Last 24 Hours: Temp Pulse Resp BP Pulse Ox O2 Del Method O2 Flow Rate 98.4 F 56 L 18 129/82 93 L Room Air 25 07/21/23 04:00 07/21/23 04:00 07/21/23 04:00 07/21/23 04:00 07/21/23 04:00 07/21/23 04:00 07/18/23 04:00 FiO2 25 07/21/23 01:45 Laboratory Results - last 24 hr 07/20/23 06:05: Total Counted 100, Neutrophils % (Manual) 68, Lymphocytes % (Manual) 19, Monocytes % (Manual) 7, Eosinophils % (Manual) 6 H, Platelet Estimate Slight decrease, RBC Morphology Normal, NT-Pro-B Natriuret Pep 828 H I & O for Last 24 hours: Intake & Output 07/18/23 07/19/23 07/20/23 07/21/23 23:59 23:59 23:59 23:59 Intake Total 2659.874 / 2659.874 350 / 700 1360 / 1360 Output Total 580 / 605 120 / 120 0 / 0 0 / 0 Balance 2079.874 / 2054.874 230 / 580 1360 / 1360 0 / 0 Weight 91.807 kg 91.807 kg 93.525 kg Microbiology Reports for the Last 24 Hours: Microbiology 07/16/23 15:18 Sputum - Endotracheal Tube Aspirate Gram Stain - Final 07/16/23 15:18 Sputum - Endotracheal Tube Aspirate Sputum Culture - Final 07/16/23 19:53 Blood Blood Culture - Preliminary 07/16/23 19:15 Blood Blood Culture - Preliminary Constitutional Constitutional: no acute distress, average body habitus, chronically ill appearing and cooperative *Routine HEENT Exam Head: Present normocephalic Eye: Present EOMI and PERRL ENT: Present mucous membranes moist *Routine Neck Exam Neck: Present supple; Absent lymphadenopathy *Routine Respiratory Exam Respiratory: Present prolonged expiratory phase, rhonchi and diminished air movement; Absent wheezes or crackles *Routine Cardiovascular Exam Cardiovascular: Present RRR *Routine Abdominal Exam Abdominal: Present soft and normoactive bowel sounds; Absent tenderness *Routine Extremities Exam Extremities: Absent cyanosis, clubbing or edema *Routine Skin Exam Skin: Present warm; Absent rash *Routine Neurological Exam Neurological: Present alert, oriented X3 and moving all extremities; Absent altered mental status Results Data Completed and Pending Labs on day of discharge: Labs from last 24 hours 07/20/23 06:05 Total Counted 100 Neutrophils % (Manual) 68 Lymphocytes % (Manual) 19 Monocytes % (Manual) 7 Eosinophils % (Manual) 6 H Platelet Estimate Slight decrease RBC Morphology Normal NT-Pro-B Natriuret Pep 828 H Preliminary micro results at discharge 07/16/23 19:53 Blood Culture - Preliminary Blood 07/16/23 19:15 Blood Culture - Preliminary Blood DS: Diagnosis Discharge Diagnosis (1) Acute respiratory failure: Status: Acute Code(s): J96.00 - Acute respiratory failure, unspecified whether with hypoxia or hypercapnia Qualifiers: Respiratory failure complication: hypoxia and hypercapnia Qualified Code(s): J96.01 - Acute respiratory failure with hypoxia; J96.02 - Acute respiratory failure with hypercapnia (2) Pectus excavatum: Status: Acute Code(s): Q67.6 - Pectus excavatum (3) Aspiration pneumonia: Status: Acute Code(s): J69.0 - Pneumonitis due to inhalation of food and vomit Qualifiers: Aspiration pneumonia type: unspecified Laterality: unspecified laterality Lung location: unspecified part of lung Qualified Code(s): J69.0 - Pneumonitis due to inhalation of food and vomit (4) HTN (hypertension): Status: Chronic Code(s): I10 - Essential (primary) hypertension Qualifiers: Hypertension type: primary hypertension Qualified Code(s): I10 - Essential (primary) hypertension (5) Atrial fibrillation: Status: Chronic Code(s): I48.91 - Unspecified atrial fibrillation Qualifiers: Atrial fibrillation type: paroxysmal Qualified Code(s): I48.0 - Paroxysmal atrial fibrillation (6) 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: Status: Chronic Code(s): 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 (7) Automatic implantable cardiac defibrillator in situ: Status: Chronic Code(s): Z95.810 - Presence of automatic (implantable) cardiac defibrillator Meds Home Medications and Allergies Home Medications Medication Instructions Recorded Confirmed Type apixaban 5 mg tablet (Eliquis) 5 mg PO BID Blood thinner/Afib 06/15/17 07/17/23 History aspirin 81 mg tablet,delayed 81 mg PO DAILY Heart Health 06/15/17 07/17/23 History release (Adult Low Dose Aspirin) furosemide 40 mg tablet (Lasix) 40 mg PO DAILY Fluid 06/15/17 07/17/23 History lisinopril 10 mg tablet 10 mg PO DAILY High Blood Pressure 06/15/17 07/17/23 History allopurinol 100 mg tablet 100 mg PO DAILY Gout 01/10/21 07/17/23 History potassium chloride 20 mEq 20 meq PO DAILY Supplement 08/01/22 07/17/23 History tablet,extended release(part/cryst) ketorolac 0.4 % eye drops 1 drp ophthalmic (eye) Q4H 07/17/23 07/17/23 History metoprolol succinate 100 mg 100 mg PO DAILY High Blood Pressure 07/17/23 07/17/23 History tablet,extended release 24 hr (Toprol XL) ofloxacin 0.3 % eye drops 1 drp ophthalmic (eye) Q4H 07/17/23 07/17/23 History prednisolone acetate 1 % eye 1 drp ophthalmic (eye) Q4H 07/17/23 07/17/23 History drops,suspension New Prescriptions to Start Prescriptions: Allergies Allergy/AdvReac Type Severity Reaction Status Date / Time No Known Allergies Allergy Verified 01/29/23 09:58 Discharge Plan Disposition Patient Disposition: Home Health Service Condition: Good Discharge Order Discharge Orders: Discharge Order (Routine); Ordered 07/21/23 Ordered By: Dany Hagen Follow up Plan Prescriptions/Medication Reconciliation: Continued potassium chloride 20 mEq tablet,ER particles/crystals 20 meq PO DAILY Patient Comments: TAKE 1 TABLET 1 TIME EACH DAY WITH FOOD aspirin [Adult Low Dose Aspirin] 81 mg tablet,delayed release (DR/EC) 81 mg PO DAILY apixaban [Eliquis] 5 mg tablet 5 mg PO BID furosemide [Lasix] 40 mg tablet 40 mg PO DAILY lisinopril 10 mg tablet 10 mg PO DAILY allopurinol 100 mg tablet 100 mg PO DAILY ofloxacin 0.3 % drops 1 drp ophthalmic (eye) Q4H prednisolone acetate 1 % drops,suspension 1 drp ophthalmic (eye) Q4H ketorolac 0.4 % drops 1 drp ophthalmic (eye) Q4H metoprolol succinate [Toprol XL] 100 mg tablet extended release 24 hr 100 mg PO DAILY Other Ambulatory Orders: Home Medical Equipment (Routine) Location: None Selected Ordered By: Dany Hagen Problem Reconciliation Problems Reviewed?: Yes Patient Discharge Instructions ACTIVITY: Continue current activity DIET: continue same diet Providers Primary Care Provider: Ruby Rendon Admit Provider: Philip Schafer Attending Provider: Philip Schafer
[2023-07-21 08:00] VITALS: BP 136/89; PULSE 66; RESP 22; TEMP 36.6; O2SAT 97
[2023-07-21] MEDS: METOPROLOL SUCCINATE XL 50MG TABLET 50 MG PO (09:26)
[2023-07-21] MEDS: ASPIRIN EC 81MG TABLET 81 MG PO (09:26)
[2023-07-21] MEDS: FUROSEMIDE 40 MG TABLET PO (09:26)
[2023-07-21] MEDS: ENOXAPARIN 40MG/0.4ML SYRINGE 40 MG SQ (09:26)
--- NOTE | 2023-07-21 09:33 | EXP.PULM.PN ---
Subjective *Date: 07/21/23 *Time: 12:22 Interval history: No acute respiratory vents overnight. Admits compliance with BiPAP. Tolerating well. Pulmonology Exam Inpatient Vital signs and Labs for Last 24 Hours: Temp Pulse Resp BP Pulse Ox O2 Del Method O2 Flow Rate 97.9 F 66 22 136/89 97 Room Air 07/21/23 08:00 07/21/23 08:00 07/21/23 08:00 07/21/23 08:00 07/21/23 08:00 07/21/23 08:00 07/18/23 04:00 FiO2 25 07/21/23 01:45 Laboratory Results - last 24 hr 07/20/23 06:05: Total Counted 100, Neutrophils % (Manual) 68, Lymphocytes % (Manual) 19, Monocytes % (Manual) 7, Eosinophils % (Manual) 6 H, Platelet Estimate Slight decrease, RBC Morphology Normal, NT-Pro-B Natriuret Pep 828 H I & O for Labs for Last 24 Hours: Intake & Output 07/18/23 07/19/23 07/20/23 07/21/23 23:59 23:59 23:59 23:59 Intake Total 2659.874 / 2659.874 350 / 700 1360 / 1360 270 / 270 Output Total 580 / 605 120 / 120 0 / 0 0 / 0 Balance 2079.874 / 2054.874 230 / 580 1360 / 1360 270 / 270 Weight 202 lb 6.4 oz 202 lb 6.396 oz 206 lb 3 oz Microbiology Reports for the Last 24 Hours: Microbiology 07/16/23 15:18 Sputum - Endotracheal Tube Aspirate Gram Stain - Final 07/16/23 15:18 Sputum - Endotracheal Tube Aspirate Sputum Culture - Final 07/16/23 19:53 Blood Blood Culture - Preliminary 07/16/23 19:15 Blood Blood Culture - Preliminary Constitutional: Present mild distress Head: Present normocephalic and atraumatic ENT: Present normal exam, normal oropharynx and mucous membranes moist Neck: Present normal inspection and full ROM Respiratory: Present respiratory distress and able to speak in complete sentences; Absent wheezes, crackles or diminished air movement Cardiac: Present S1/S2, Tachycardia and radial pulses present GI: Present soft and distention; Absent tenderness or guarding Skin: Present intact; Absent cyanosis or jaundice Neuro: Present alert, awake and oriented x 3 Extremities: Present normal inspection; Absent clubbing or cyanosis Psychiatric: Present normal affect and cooperative Assessment and Plan *Assessment and plan (1) Acute respiratory failure: Status: Acute Qualifiers: Respiratory failure complication: hypoxia and hypercapnia Qualified Code(s): J96.01 - Acute respiratory failure with hypoxia; J96.02 - Acute respiratory failure with hypercapnia Category: Medical Code(s): J96.00 - Acute respiratory failure, unspecified whether with hypoxia or hypercapnia (2) Pectus excavatum: Status: Acute Category: Medical Code(s): Q67.6 - Pectus excavatum (3) Aspiration pneumonia: Status: Acute Qualifiers: Aspiration pneumonia type: unspecified Laterality: unspecified laterality Lung location: unspecified part of lung Qualified Code(s): J69.0 - Pneumonitis due to inhalation of food and vomit Category: Medical Code(s): J69.0 - Pneumonitis due to inhalation of food and vomit (4) AISSATOU (obstructive sleep apnea): Status: Acute Category: Medical Code(s): G47.33 - Obstructive sleep apnea (adult) (pediatric) (5) Lung disease, restrictive: Status: Acute Category: Medical Code(s): J98.4 - Other disorders of lung Plan Mr. Ferguson is a 72-year-old male with a history of mitral stones status post TAVR, BPH status post pacemaker, A-fib, CHF, no significant smoking history, no prior respiratory complaints at baseline, questionable sleep apnea, presented to the ER with hypoxia and altered mentation intubated for airway protection mechanical ventilatory support and pulmonary was called for further evaluation and management. Upon questioning patient states that he is a never smoker denies any respiratory problems with patient has been progressively getting worse with respect to his worsening altered mentation for the last week prior to his presentation to the ER. CTA upon admission evidence of pulmonary embolism. Aspiration debris in the airways along with left lower lobe atelectasis which is new from prior. Also noted to have bilateral upper lobe patchy groundglass opacities with septal thickening. CT head possible small vessel ischemia and age-related volume loss. Afebrile. No evidence of leukocytosis upon admission. VBG upon admission for hypercarbic respiratory failure, improved postintubation. COVID-19 and flu PCR panel negative. on minimal ventilator settings. Interval update: Patient failed SBT over the weekend secondary to low tidal volumes tachypnea and agitation. The family made a plan to extubate the patient to BiPAP and signed a DNR order not to reintubate the patient again. ABG prior to extubation is concerning for worsening hypercarbic respiratory failure family discussed the results and the still would like to proceed with extubation patient was extubated to BiPAP. Continue to receive ceftriaxone azithromycin. Afebrile. No evidence of leukocytosis. Blood admission pending. Tracheal aspirate no WBCs seen, cultures no growth. Chest x-ray from 07/19/2023 stable with no acute worsening. Interval update: No acute respiratory events overnight. Continue to receive BiPAP nightly. Continue to remain on room air. Continue to receive levofloxacin and nebs on as-needed basis. Plan: Wean antibiotic levofloxacin to complete total of 5-day course, can be weaned to oral upon discharge. Continue DuoNebs every 6 hours on as-needed basis # Polysomnography testing results reviewed, patient with severe sleep apnea with AHI of 21.9. Along with sleep and the patient is also having chest wall restriction given his pectus excavatum leading to restrictive lung disease and hypercarbic respiratory failure. He would best benefit from BiPAP therapy at this point of time. Patient can be discharged home on BiPAP therapy at night at current settings 05/06 with a rate of 22 on FiO2 of 25%. He has been using BiPAP therapy at the current settings. Tolerating well. # Thank you for involving pulmonary in this patient care. Will follow the patient in pulmonary clinic 1 to 2 weeks post discharge
[2023-07-21 09:55] LABS: Basophils % 0.5 % (0.1-2.0); Eosinophils # 0.3 K/mm3 (0.0-0.4); Eosinophils % 4.7 % (0.1-12.0); Hematocrit 42.7 % (42.0-52.0); Hemoglobin 13.4 g/dL (14.1-18.0); Lymphocytes % 16.7 % (10-50); Mean Corpuscular HGB Conc 31.3 g/dL (31.8-35.4); Mean Corpuscular Volume 95.9 fl (80-94); Mean Platelet Volume 9.5 fl (7.4-10.4); Monocytes # 0.4 K/mm3 (0.1-1.0); Monocytes % 6.7 % (1.7-9.3); Neutrophils # 4.3 K/mm3 (1.8-7.8); Neutrophils % 71.4 % (37.0-80.0); Platelet Count 116 K/mm3 (142-424); Red Blood Count 4.45 M/mm3 (4.60-6.20); Red Cell Distribution Width 15.6 % (11.5-17.5); White Blood Count 6.1 K/mm3 (4.8-10.8)
--- NOTE | 2023-07-21 10:02 | SW/DCPLANNER ---
Addendum entered by Jaelyn Jeong 07/21/23 13:58: Per Lyric w/ [facility] services will start this week for this patient. Addendum entered by Jaelyn Jeong 07/21/23 11:27: Patient information/order has been faxed to [facility]. Original Note: I spoke w/ this patient regarding plans once medically stable for discharge. PT/OT evaluated patient and recommended home health services for this patient. Patient is agreeable to home health and does not have a preference as to which agency. I will set up home health services at time of discharge. Discharge date is unknown at this time.
[2023-07-21 10:11] LABS: Anion Gap 11.8 mEq/L (5-15); Blood Urea Nitrogen 18 mg/dl (9-20); Calcium 8.6 mg/dl (8.4-10.2); Carbon Dioxide 29 mmol/L (22.0-30.0); Chloride 105 mmol/L (98-107); Creatinine Clearance Estimated 76 mL/min (50-200); Estimated Glomerular Filt Rate 60 ml/min (>60); GFR (African American) 72 ML/MIN (>60); Glucose 106 mg/dl (74-100); Potassium 3.8 mmoL/L (3.5-5.1); Sodium 142 mmol/L (136-145)
[2023-07-21 12:00] VITALS: BP 128/69; PULSE 110; PULSE 83; RESP 20; TEMP 36.4; O2SAT 95
[2023-07-21] MEDS: LEVOFLOXACIN/D5W 750 MG/150 ML 750 MG/150 ML PIGGYBACK 100 MG IV (12:13)
--- NOTE | 2023-07-21 13:08 | P.PN_ITS ---
Subjective Subjective Date: 07/21/23 Time: 09:00 Principal diagnosis: AFib, Resp failure Interval history: The patient is doing well this morning. Denies any chest pain or pressure. He denies any shortness of breath or edema. He denies any fever, chills, nausea, vomiting, diarrhea, PND or orthopnea. The patient is alert and oriented and does not have any confusion this morning. Exam Data for Last 24 hours Vital signs and Labs for Last 24 Hours: Temp Pulse Resp BP Pulse Ox O2 Del Method O2 Flow Rate 97.5 F L 110 H 20 128/69 95 Room Air 07/21/23 12:00 07/21/23 12:00 07/21/23 12:00 07/21/23 12:00 07/21/23 12:00 07/21/23 12:21 07/18/23 04:00 FiO2 07/21/23 01:45 Laboratory Results - last 24 hr 07/21/23 09:20: WBC 6.1, RBC 4.45 L, Hgb 13.4 L, Hct 42.7, MCV 95.9 H, MCH 30.0, MCHC 31.3 L, RDW 15.6, Plt Count 116 L, MPV 9.5, Neut % (Auto) 71.4, Lymph % (Auto) 16.7, Rogers % (Auto) 6.7, Eos % (Auto) 4.7, Baso % (Auto) 0.5, Neut # (Auto) 4.3, Lymph # (Auto) 1.0, Rogers # (Auto) 0.4, Eos # (Auto) 0.3, Baso # (Auto) 0.0, Sodium 142, Potassium 3.8, Chloride 105, Carbon Dioxide 29, Anion Gap 11.8, BUN 18, Creatinine 1.20, Estimated Creat Clear 76, Estimated GFR 60, Est GFR ( Amer) 72, Glucose 106 H, Calcium 8.6 I & O for Last 24 hours: Intake & Output 07/18/23 07/19/23 07/20/23 07/21/23 23:59 23:59 23:59 23:59 Intake Total 2659.874 / 2659.874 350 / 700 1360 / 1360 420 / 420 Output Total 580 / 605 120 / 120 0 / 0 0 / 0 Balance 2079.874 / 2054.874 230 / 580 1360 / 1360 420 / 420 Weight 202 lb 6.4 oz 202 lb 6.396 oz 206 lb 3 oz Microbiology Reports for the Last 24 Hours: Microbiology 07/16/23 15:18 Sputum - Endotracheal Tube Aspirate Gram Stain - Final 07/16/23 15:18 Sputum - Endotracheal Tube Aspirate Sputum Culture - Final 07/16/23 19:53 Blood Blood Culture - Preliminary 07/16/23 19:15 Blood Blood Culture - Preliminary Constitutional Constitutional: no acute distress and average body habitus *Routine HEENT Exam Head: Present normocephalic and atraumatic ENT: Present mucous membranes moist *Routine Neck Exam Neck: Present supple, full ROM and normal carotid upstroke; Absent JVD, carotid bruit or lymphadenopathy *Routine Respiratory Exam Respiratory: Present CTA bilaterally, normal respiratory effort, able to speak in complete sentences and symmetric chest movement *Routine Cardiovascular Exam Cardiovascular: Present RRR, Normal S1 and Normal S2; Absent murmur or gallop *Routine Abdominal Exam Abdominal: Present soft and normoactive bowel sounds; Absent tenderness, distended or organomegaly *Routine Extremities Exam Extremities: Present full ROM, pulses intact and normal capillary refill; Absent cyanosis, clubbing or edema *Routine Skin Exam Skin: Present intact and warm; Absent erythema *Routine Neurological Exam Neurological: Present alert, oriented X3 and CN II-XII intact; Absent sensory deficit or motor deficit Routine Psychiatric Exam Psychiatric: Present normal affect Progress Note: A&P Assessment and plan (1) Acute respiratory failure: Status: Acute (2) Pectus excavatum: Status: Acute (3) Aspiration pneumonia: Status: Acute (4) HTN (hypertension): Status: Chronic (5) Atrial fibrillation: Status: Chronic (6) 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 The patient was admitted for acute respiratory failure with hypoxemia. He was initially intubated and on mechanical ventilation. He has been extubated and is using a BiPAP at night. The patient is tolerating this well. 2. The patient does have a history of a bioprosthetic mitral valve which is functioning normally. 3. The patient does have paroxysmal atrial fibrillation status post Maze procedure in 2017. He will need to be switched over to oral Eliquis for long- term anticoagulation. 4. His blood pressure is well-controlled. 5. His LDL goal is less than 100. LDL is 70. 6. He is status post AICD placement. His ejection fraction has improved and is now 70. 7. Continue metoprolol. 8. No further recommendations at this time from a cardiac standpoint. The patient is stable for discharge home today from a cardiac standpoint. He will need to follow-up next week in cardiology clinic. Thank you for the opportunity to participate in the care of this patient. All recommendations and orders are per Dr. Benavidez.
--- NOTE | 2023-07-22 15:43 | SW/DCPLANNER ---
Follow up phone call w/ this patient: patient stated that he is doing well at home and does not have any needs. Patient stated that he did leave a pair of shoes at [facility] ([employer]) confirmed: patient will pick them up next week. No further needs/questions at this time.
== END 2023-07-21 14:00 | disposition home health service (06) | DRG 208 ==
LOC: ER 19:12 → 2ND 19:57
PROVIDERS: Internal Medicine Adolescent Medicine; Nurse Practitioner Critical Care Medicine; Nurse Practitioner Family; Admitting Provider Internal Medicine; Emergency Provider Emergency Medicine; PCP Nurse Practitioner Family; Visit Provider Internal Medicine
DX: J69.0 Pneumonitis due to inhalation of food and vomit (principal); J96.01 Acute respiratory failure with hypoxia; J96.02 Acute respiratory failure with hypercapnia; Q67.6 Pectus excavatum; I50.82 Biventricular heart failure; Z95.4 Presence of other heart-valve replacement; I11.0 Hypertensive heart disease with heart failure; I35.0 Nonrheumatic aortic (valve) stenosis; I50.9 Heart failure, unspecified; Z95.2 Presence of prosthetic heart valve; I48.0 Paroxysmal atrial fibrillation; Z95.810 Presence of automatic (implantable) cardiac defibrillator
CPT/HCPCS: 31500; 94002; 36415; 70450; 71045; 71275; 80048; 80053; 80061; 82803; 83605; 83735; 83880; 84484; 85007; 85014; 85018; 85025; 85048; 85049; 87040; 87070; 87205; 87636; 93005; 93306; 94003; 94640; 94660; 97110; 97163; 97166; 97530; 97535; 99291; J0330; J0696; J1956; J2704; Q9967

== ENCOUNTER 2023-10-01 08:10 | Day surgery (SDC) | payer MEDICARE, SELFPAY ==
[2023-10-01] VITALS (9 sets, daily range): BP systolic 94–132; BP diastolic 43–84; PULSE 60–74; RESP 16–24; TEMP 36.6; O2SAT 89–100; BMI 26.6
--- NOTE | 2023-10-01 07:27 | IR_ITS ---
APPROVED REPORT Patient Location: Outpatient Tower Supervisor: GEOVANNI Parada RT (R) PROCEDURES 1..Pocket Revision 2. Removal of old AICD generator 3. Implant of AICD generator INDICATION END OF BATTERY LIFE Informed consent was obtained prior to the procedure. COMPLICATIONS NONE Estimated Blood Loss: LESS THAN 10 ML TECHNIQUE 1% lidocaine with epinephrine used to anesthetize the left anterior aspect of the chest. Scalpel was used to make the initial cutaneous incision and then used to dissect down to the existing AICD generator. The generator was removed from the existing pocket. Digital manipulation was required along with intermittent usage of scalpel in order to revise the pocket. The leads were removed from the old generator. The new generator was screwed to the existing leads and secured into place. Electronic interrogation proved acceptable thresholds and voltage within the lead. Antibiotics were used to flush the pocket and the pacemaker was secured using 3-0 silk into the newly revised pocket. Monocryl was used to close the subcutaneous tissue and then taylor were placed on the cutaneous area in order to approximate the incision. Patient was transferred to the postop holding area in stable condition. INTERROGATION Generator Model number: Ninoska GARCIA, [id number] Generator Serial number: [id number] Atrial lead: P-wave: 0.5mV Impedance: 400 ohms Threshold: 0.5V@0.5ms Right Ventricular: R-wave: 12.0mV Impedance: 450 ohms Threshold: 2.375V@0.5ms VT: 190 bpm, ATP x2, 36 J, 40 J, 40 J x2 VF: 222 bpm, ATP x1, 36 J, 40 J, 40 J x4 Pacing Parameters: Mode: DDDR Base/Max Track:60 ppm / 130 ppm No diaphragmatic stimulation at 10 volts. IMPRESSION 1. Successful Pocket Revision 2. Successful Removal of old AICD generator 3. Successful Implant of AICD generator PLAN 1. Postop wound care. Electronically signed by : Clifford Hogue MD 10/02/2023 12:44:22
[2023-10-01 08:32] LABS: Basophils # 0.1 K/mm3 (0-0.2); Eosinophils # 0.3 K/mm3 (0.0-0.4); Eosinophils % 3.5 % (0.1-12.0); Hemoglobin 14.3 g/dL (14.1-18.0); Lymphocytes # 2.4 K/mm3 (0.7-4.5); Mean Corpuscular HGB Conc 32.5 g/dL (31.8-35.4); Mean Corpuscular Volume 92.4 fl (80-94); Mean Platelet Volume 9.4 fl (7.4-10.4); Monocytes # 0.5 K/mm3 (0.1-1.0); Monocytes % 5.6 % (1.7-9.3); Neutrophils # 5.9 K/mm3 (1.8-7.8); Neutrophils % 63.8 % (37.0-80.0); Platelet Count 149 K/mm3 (142-424); Red Blood Count 4.76 M/mm3 (4.60-6.20); Red Cell Distribution Width 15.9 % (11.5-17.5); White Blood Count 9.3 K/mm3 (4.8-10.8)
[2023-10-01 08:46] LABS: Anion Gap 14.2 mEq/L (5-15); Blood Urea Nitrogen 39 mg/dl (9-20); Calcium 9.8 mg/dl (8.4-10.2); Carbon Dioxide 32 mmol/L (22.0-30.0); Chloride 99 mmol/L (98-107); Creatinine Clearance Estimated 48 mL/min (50-200); Estimated Glomerular Filt Rate 37 ml/min (>60); GFR (African American) 45 ML/MIN (>60); Glucose 119 mg/dl (74-100); Potassium 4.2 mmoL/L (3.5-5.1); Sodium 141 mmol/L (136-145)
--- NOTE | 2023-10-01 09:12 | P.PNANES_ITS ---
[facility] Disclaimer: The information contained in this section may have been updated after the patient was seen, as this information can be updated by other users. Medical History Respiratory failure with hypercapnia AISSATOU (obstructive sleep apnea) Valvular heart disease Presence of combination internal cardiac defibrillator (ICD) and pacemaker HTN (hypertension) Congestive heart failure Atrial fibrillation Surgical History History of colonoscopy Hx of tonsillectomy Family History Other Cancer Hypertension Social History Smoking Status: Never smoker second hand exposure: No alcohol intake: former substance use type: denies use current occupational status: retired Travel in the last 8 weeks: None household members: spouse housing: house current occupational exposures/hazards: No caffeine: No H Anesthesia Checklist Patient Identification Patient Identification: Arm Band Structural Data Admitted From: Home Planned Operative Procedure/s: Pacemaker Generator Change Consent for Planned Operative Procedure(s) Verified: Yes Verified Documents: Surgical Consent and History and Physical NPO Status Verified Time NPO: 00:00 Additional verifications Anesthesia Reactions: No Airway Assessment Mallampati Score:: Class II C-Spine Mobility Assessed: Yes TMJ Mobility Assessed: Yes Dentition: Poor Dentition (front right chipped tooth. Pt states it is from intubation during recent hospital admission) Neurological Assessment Level of Consciousness: Awake, Alert and Appropriate Anesthesia Plan Anesthesia Risk discussed: Yes Anesthesia Plan: Verified ASA Class: III Anesthesia Type: MAC
== END 2023-10-01 11:44 | disposition home or self-care (01) ==
PROVIDERS: PCP Nurse Practitioner Family; Visit Provider Internal Medicine
DX: Z45.02 Encounter for adjustment and management of automatic implantable cardiac defibrillator (principal); Z79.01 Long term (current) use of anticoagulants; Z79.899 Other long term (current) drug therapy; I11.0 Hypertensive heart disease with heart failure; I50.82 Biventricular heart failure; I48.0 Paroxysmal atrial fibrillation; Z95.2 Presence of prosthetic heart valve
CPT/HCPCS: 33263; 80048; 85025; C1721; J2704